=== PATIENT | male | born 1955 | race Caucasian/White ===

== ENCOUNTER → 2016-11-08 | Outpatient (CLI) | payer MEDICARE, OTHER ==
[2016-11-08 11:06] LABS: HEMOGLOBIN 12.8 g/dL (13.5-17.0); HGB HCT DIFFERENCE 1.4; MEAN CORPUSCULAR HEMOGLOBIN 29.9 pg (27.0-33.4); MEAN CORPUSCULAR HGB CONC 34.7 g/dL (32.0-36.0); MEAN CORPUSCULAR VOLUME 86 fl (80-97); RED BLOOD COUNT 4.29 10^6/uL (4.35-5.55); RED CELL DISTRIBUTION WIDTH 15.7 % (11.5-14.0); WHITE BLOOD COUNT 5.6 10^3/uL (4.0-10.5)
[2016-11-08 12:01] LABS: ALANINE AMINOTRANSFERASE 21 U/L (21-72); ALBUMIN 4.3 g/dL (3.5-5.0); ALKALINE PHOSPHATASE 102 U/L (38-126); AMYLASE 49 U/L (30-110); ASPARTATE AMINO TRANSFERASE 20 U/L (17-59); BILIRUBIN,DIRECT 0.4 mg/dL (0.0-0.4); BILIRUBIN,TOTAL 0.8 mg/dL (0.2-1.3); LIPASE 58.9 U/L (23-300); TOTAL PROTEIN 7.7 g/dL (6.3-8.2)
[2016-11-08 12:02] LABS: ALANINE AMINOTRANSFERASE 23 U/L (21-72); ALBUMIN 4.3 g/dL (3.5-5.0); ALKALINE PHOSPHATASE 101 U/L (38-126); ANION GAP 14 (5-19); ASPARTATE AMINO TRANSFERASE 19 U/L (17-59); BLOOD UREA NITROGEN 8 mg/dL (7-20); CALCIUM 9.4 mg/dL (8.4-10.2); CARBON DIOXIDE 31 mmol/L (22-30); CHLORIDE 101 mmol/L (98-107); CREATININE RESULT 0.85 mg/dL (0.52-1.25); GLUCOSE 98 mg/dL (75-110); POTASSIUM 4.3 mmol/L (3.6-5.0); TOTAL PROTEIN 7.7 g/dL (6.3-8.2)
[2016-11-08 12:34] LABS: BILIRUBIN,TOTAL 0.8 mg/dL (0.2-1.3)
[2016-11-08 12:44] LABS: BILIRUBIN,DIRECT 0.5 mg/dL (0.0-0.4)
--- NOTE | 2016-11-08 19:02 | EKG REPORT ---
SEVERITY:- OTHERWISE NORMAL ECG - SINUS RHYTHM BORDERLINE LEFT AXIS DEVIATION : Confirmed by: Matt Frye MD 08-Nov-2016 19:01:17
== END ==
LOC: OD 09:42
PROVIDERS: ATTEND Physician Assistant Surgical
DX: R53.83 Other fatigue (principal); I50.9 Heart failure, unspecified; I25.10 Atherosclerotic heart disease of native coronary artery without angina pectoris; Z98.84 Bariatric surgery status; R10.13 Epigastric pain
CPT/HCPCS: 36415; 71020; 80053; 80076; 82150; 82607; 83690; 83880; 84443; 85027; 93005; 93010

== ENCOUNTER 2017-02-19 12:38 | Emergency (ER) | payer MEDICARE, OTHER ==
--- NOTE | 2017-02-19 13:15 | ER Document Report ---
ED Medical Screen (RME) - General Chief Complaint: Testicular Problem Stated Complaint: RECENDED TESTICLES Time Seen by Provider: 02/19/17 13:10 Notes: 61-year-old male patient on chronic pain management complains of one-week history of bilateral testicular discomfort and states the testicles feel retracted. He reports in the past this occurs and he can push on his abdomen make him come back down but it is not working now. I have greeted and performed a rapid initial assessment of this patient. A comprehensive ED assessment and evaluation of the patient, analysis of test results and completion of the medical decision making process will be conducted by additional ED providers. TRAVEL OUTSIDE OF THE [place] IN LAST 30 DAYS: No - Related Data Allergies/Adverse Reactions: Iodinated Contrast- Oral and IV Dye [IV Dye, Iodine Containing] Allergy (Severe , Verified 02/19/17 12:49) Anaphylaxis Past Medical History - Past Medical History Cardiac Medical History: Reports: Hx Congestive Heart Failure, Hx Coronary Artery Disease, Hx Heart Attack Denies: Hx Atrial Fibrillation, Hx Hypercholesterolemia, Hx Hypertension, Hx Peripheral Vascular Disease, Hx Pulmonary Embolism, Hx Heart Murmur Pulmonary Medical History: Reports: Hx Pneumonia Denies: Hx Asthma, Hx Bronchitis, Hx COPD, Hx Respiratory Failure, Hx Sleep Apnea, Hx Tuberculosis Neurological Medical History: Denies: Hx Cerebrovascular Accident, Hx Seizures Endocrine Medical History: Denies: Hx Graves' Disease, Hx Hyperthyroidism, Hx Hypothyroidism Renal/ Medical History: Reports: Hx Kidney Stones. Denies: Hx Benign Prostatic Hyperplasia, Hx End Stage Renal Disease, Hx Peritoneal Dialysis Malignancy Medical History: Denies Hx Leukemia, Denies Hx Lung Cancer GI Medical History: Reports: Hx Gastroesophageal Reflux Disease, Hx Ulcer. Denies: Hx Crohn's Disease, Hx Hiatal Hernia, Hx Irritable Bowel, Hx Liver Failure Musculoskeltal Medical History: Denies Hx Arthritis, Denies Hx Fibromyalgia, Denies Hx Multiple Sclerosis, Denies Hx Muscular Dystrophy Psychiatric Medical History: Reports: Hx Post Traumatic Stress Disorder Denies: Hx Bipolar Disorder, Hx Dementia, Hx Depression, Hx Schizophrenia Traumatic Medical History: Denies: Hx Fractures Infectious Medical History: Denies: Hx HIV Past Surgical History: Reports: Hx Abdominal Surgery - gastric bypass, Hx Appendectomy - 2002, Hx Cardiac Catheterization - stents x 2, Hx Cardiac Surgery - two stents, Hx Cholecystectomy - 2008, Hx Gastric Bypass Surgery - (x2 ) surgery to repair. Denies: Hx Bowel Surgery, Hx Colostomy, Hx Coronary Artery Bypass Graft, Hx Herniorrhaphy, Hx Pacemaker, Hx Tonsillectomy - Immunizations Hx Diphtheria, Pertussis, Tetanus Vaccination: Yes Physical Exam - Vital signs Vitals: Temp Pulse Resp BP Pulse Ox 98.2 F 66 16 123/70 97 02/19/17 12:47 02/19/17 12:47 02/19/17 12:47 02/19/17 12:47 02/19/17 12:47 Course - Vital Signs Vital signs: Temp Pulse Resp BP Pulse Ox 98.2 F 66 16 123/70 97 02/19/17 12:47 02/19/17 12:47 02/19/17 12:47 02/19/17 12:47 02/19/17 12:47
[2017-02-19 13:47] LABS: APPEARANCE,URINE CLEAR; BILIRUBIN,URINE NEGATIVE (NEGATIVE); GLUCOSE, URINE NEGATIVE (NEGATIVE); KETONES,URINE NEGATIVE (NEGATIVE); LEUKOCYTE ESTERASE,URINE NEGATIVE (NEGATIVE); NITRITE,URINE NEGATIVE (NEGATIVE); PROTEIN,URINE NEGATIVE (NEGATIVE); URINE SPECIFIC GRAVITY 1.003; UROBILINOGEN,URINE NEGATIVE mg/dL (<2.0)
--- NOTE | 2017-02-19 14:33 | RADIOLOGY REPORT (SQ) ---
EXAM DESCRIPTION: U/S SCROTUM W/DOPPLER COMPLETED DATE/TIME: 02/19/2017 2:09 pm REASON FOR STUDY: bilat testicle pain and retraction COMPARISON: None. TECHNIQUE: Static and realtime mercado scale imaging of the scrotum and testes. Selected color Doppler and spectral images recorded to document blood flow. LIMITATIONS: None. FINDINGS: RIGHT: TESTICLE: Heterogeneous echotexture. Normal blood flow. EPIDIDYMIS: Normal. HYDROCELE OR VARICOCELE: No. HERNIA OR EXTRA-TESTICULAR MASS: No. OTHER: No other significant finding. LEFT: TESTICLE: Heterogeneous echotexture. Normal blood flow. EPIDIDYMIS: Normal. HYDROCELE OR VARICOCELE: No. HERNIA OR EXTRA-TESTICULAR MASS: No. OTHER: No other significant finding. IMPRESSION: NO EVIDENCE OF TESTICULAR MASS OR TORSION. TECHNICAL DOCUMENTATION: JOB ID: [id number] [employer]- All Rights Reserved
[2017-02-19] MEDS ORDERED: MORPHINE SULFATE IR 30 MG TABLET PO ONE (14:46)
[2017-02-19] MEDS ORDERED: KETOROLAC TROMETHAMINE 60 MG/2 ML SDV IM ONE (14:46)
--- NOTE | 2017-02-19 14:56 | ER Document Report ---
ED General - General Chief Complaint: Testicular Problem Stated Complaint: RECENDED TESTICLES Time Seen by Provider: 02/19/17 13:10 Notes: 61-year-old male with history of chronic pancreatitis and chronic low back pain on multiple opiate medications presents with a chief complaint of "my testicles are retracted" which she says is been going on for 5 days. He states throughout the last few weeks they have been retracting "into my abdomen" but is usually able to "push them back down." He denies scrotal swelling, and empty scrotum or redness. He has no dysuria. He has bilateral groin pain above the scrotum. He has no history of scrotal trauma. This patient was seen at triage by another provider and a UA and ultrasound were ordered. These are both read completely normal before I approach the patient to see him. TRAVEL OUTSIDE OF THE [place] IN LAST 30 DAYS: No - Related Data Allergies/Adverse Reactions: Iodinated Contrast- Oral and IV Dye [IV Dye, Iodine Containing] Allergy (Severe , Verified 02/19/17 12:49) Anaphylaxis Past Medical History - Social History Smoking Status: Current Every Day Smoker Chew tobacco use (# tins/day): - 1ppd Frequency of alcohol use: None Drug Abuse: None Family History: Hypertension - Past Medical History Cardiac Medical History: Reports: Hx Congestive Heart Failure, Hx Coronary Artery Disease, Hx Heart Attack Denies: Hx Atrial Fibrillation, Hx Hypercholesterolemia, Hx Hypertension, Hx Peripheral Vascular Disease, Hx Pulmonary Embolism, Hx Heart Murmur Pulmonary Medical History: Reports: Hx Pneumonia Denies: Hx Asthma, Hx Bronchitis, Hx COPD, Hx Respiratory Failure, Hx Sleep Apnea, Hx Tuberculosis Neurological Medical History: Denies: Hx Cerebrovascular Accident, Hx Seizures Endocrine Medical History: Denies: Hx Graves' Disease, Hx Hyperthyroidism, Hx Hypothyroidism Renal/ Medical History: Reports: Hx Kidney Stones. Denies: Hx Benign Prostatic Hyperplasia, Hx End Stage Renal Disease, Hx Peritoneal Dialysis Malignancy Medical History: Denies Hx Leukemia, Denies Hx Lung Cancer GI Medical History: Reports: Hx Gastroesophageal Reflux Disease, Hx Ulcer. Denies: Hx Crohn's Disease, Hx Hiatal Hernia, Hx Irritable Bowel, Hx Liver Failure Musculoskeltal Medical History: Denies Hx Arthritis, Denies Hx Fibromyalgia, Denies Hx Multiple Sclerosis, Denies Hx Muscular Dystrophy Psychiatric Medical History: Reports: Hx Post Traumatic Stress Disorder Denies: Hx Bipolar Disorder, Hx Dementia, Hx Depression, Hx Schizophrenia Traumatic Medical History: Denies: Hx Fractures Infectious Medical History: Denies: Hx HIV Past Surgical History: Reports: Hx Abdominal Surgery - gastric bypass, Hx Appendectomy - 2003, Hx Cardiac Catheterization - stents x 2, Hx Cardiac Surgery - two stents, Hx Cholecystectomy - 2009, Hx Gastric Bypass Surgery - (x2 ) surgery to repair. Denies: Hx Bowel Surgery, Hx Colostomy, Hx Coronary Artery Bypass Graft, Hx Herniorrhaphy, Hx Pacemaker, Hx Tonsillectomy - Immunizations Hx Diphtheria, Pertussis, Tetanus Vaccination: Yes Hx Pneumococcal Vaccination: 12/13/11 Review of Systems - Review of Systems Notes: Insert my review REVIEW OF SYSTEMS GEN: Denies fever, chills, weight loss ENT: Denies sore throat, nasal discharge, ear pain EYES: Denies blurry vision, eye pain, discharge CV: Denies chest pain, palpitations, edema RESP: Denies cough, shortness of breath, wheezing GI: Denies abdominal pain, nausea, vomiting, diarrhea MSK: Denies joint pain/swelling, edema, SKIN: Denies rash, skin lesions LYMPH: Denies swollen glands/lymph nodes NEURO: Denies headache, focal weakness or numbness, dizziness PSYCH: Denies depression, suicidal or homicidal ideation PHYSICAL EXAMINATION General: No acute distress, well-nourished Head: Atraumatic, normocephalic ENT: Mouth normal, oropharynx moist, no exudates or tonsillar enlargement Eyes: Conjunctiva normal, pupils equal, lids normal Neck: No JVD, supple, no guarding CVS: Normal rate, regular rhythm, no murmurs Resp: No resp distress, equal and normal breath sounds bilaterally GI: Nondistended, soft, no tenderness to palpation, no rebound or guarding Genitourinary: Normal male external genitalia. Normal scrotum bilaterally with normal testicles with normal lie with normal chemistry reflex. Mild inguinal tenderness. Patient stood up, no hernias appreciated bilaterally. Ext: No deformities, no edema, normal range of motion in upper and lower ext Back: No CVA or midline TTP Skin: No rash, warm Lymphatic: No lymphadeopathy noted Neuro: Awake, alert. Face symmetric. GCS 15. Physical Exam - Vital signs Vitals: Temp Pulse Resp BP Pulse Ox 98.2 F 66 16 123/70 97 02/19/17 12:47 02/19/17 12:47 02/19/17 12:47 02/19/17 12:47 02/19/17 12:47 Course - Re-evaluation Re-evalutation: 02/19/17 15:35 61-year-old male presents with complaints of his testicles retracting. He has bilateral testicle pain as well. His physical exam is consistent with normal testicles and scrotum including normal lie normal hemostatic reflex and no signs of infection. Patient has chronic pain. I do not appreciate hernias either. He states that he "may be having a little bit of pancreatitis". I suspect that he does not have any emergency medical condition of either the or GI system but I will get labs to confirm this. His ultrasound of the testicles and urinalysis are both normal. 02/19/17 18:58 Reassessed at 6:[address] scan is normal for acute pathology and labs except for a mildly elevated white count also normal. The patient is now in no apparent discomfort and is fine with being discharged to follow-up with urology. I have no concern for intermittent torsion detorsion given the time course of his pain bilateral nature and good blood flow. I have discussed with the patient there likely diagnosis, aftercare plan, follow -up plans and my usual and customary return precautions. They verbalized understanding of this. - Vital Signs Vital signs: Temp Pulse Resp BP Pulse Ox 98.2 F 66 16 123/70 97 02/19/17 12:47 02/19/17 12:47 02/19/17 12:47 02/19/17 12:47 02/19/17 12:47 - Laboratory Result Diagrams: 02/19/17 15:33 02/19/17 15:33 Laboratory results interpreted by me: 02/19/17 15:33 WBC 15.1 H RDW 14.7 H Seg Neutrophils % 82.9 H Lymphocytes % 11.3 L Absolute Neutrophils 12.5 H - Diagnostic Test Radiology reviewed: Image reviewed, Reports reviewed Discharge - Discharge Clinical Impression: Testicle pain Condition: Good Disposition: HOME, SELF-CARE Additional Instructions: He was evaluated in the ER extensively for testicle "retraction" which we did not find. Her testicles are normal and your abdominal CT is normal including that you do not have pancreatitis. Please follow-up with your regular doctor and I will refer you to a urologist in case you have further testicle pain. Referrals: TOÑO RICE MD [Primary Care Provider] - Follow up as needed FARHEEN KAYE MD [[facility]] - Follow up as needed
[2017-02-19 15:54] LABS: ABSOLUTE BASOPHILS # (AUTO) 0.1 10^3/uL (0.0-0.2); ABSOLUTE EOSINOPHILS # (AUTO) 0.1 10^3/uL (0.0-0.6); ABSOLUTE LYMPHOCYTES (AUTO) 1.7 10^3/uL (0.5-4.7); ABSOLUTE MONOCYTES (AUTO) 0.6 10^3/uL (0.1-1.4); ABSOLUTE NEUT (AUTO) 12.5 10^3/uL (1.7-8.2); BASOPHILS % (AUTO) 0.8 % (0-2); EOSINOPHILS % (AUTO) 0.9 % (0-6); HEMATOCRIT 41.7 % (37.9-51.0); HEMOGLOBIN 14.1 g/dL (13.5-17.0); HGB HCT DIFFERENCE 0.6; LYMPHOCYTES % (AUTO) 11.3 % (13-45); MEAN CORPUSCULAR HEMOGLOBIN 29.6 pg (27.0-33.4); MEAN CORPUSCULAR HGB CONC 33.7 g/dL (32.0-36.0); MEAN CORPUSCULAR VOLUME 88 fl (80-97); MONOCYTES % (AUTO) 4.1 % (3-13); RED BLOOD COUNT 4.75 10^6/uL (4.35-5.55); RED CELL DISTRIBUTION WIDTH 14.7 % (11.5-14.0); SEGMENTED NEUTROPHILS % (AUTO) 82.9 % (42-78); WHITE BLOOD COUNT 15.1 10^3/uL (4.0-10.5)
[2017-02-19 16:17] LABS: ANION GAP 12 (5-19); BLOOD UREA NITROGEN 9 mg/dL (7-20); CALCIUM 9.2 mg/dL (8.4-10.2); CARBON DIOXIDE 29 mmol/L (22-30); CHLORIDE 101 mmol/L (98-107); CREATININE RESULT 0.98 mg/dL (0.52-1.25); GLUCOSE 99 mg/dL (75-110); POTASSIUM 3.9 mmol/L (3.6-5.0); SODIUM 141.8 mmol/L (137-145)
--- NOTE | 2017-02-19 18:21 | RADIOLOGY REPORT (SQ) ---
EXAM DESCRIPTION: CT ABD/PELVIS WITH IV ONLY COMPLETED DATE/TIME: 02/19/2017 5:58 pm REASON FOR STUDY: groin pain elev WBC COMPARISON: None. TECHNIQUE: CT scan of the abdomen and pelvis performed using helical scanning technique with dynamic intravenous contrast injection. No oral contrast. Images reviewed with lung, soft tissue, and bone windows. Reconstructed coronal and sagittal MPR images reviewed. Delayed images for evaluation of the urinary system also acquired. All images stored on PACS. All CT scanners at this facility use dose modulation, iterative reconstruction, and/or weight based d osing when appropriate to reduce radiation dose to as low as reasonably achievable (ALARA). [facility]: Dose Right [facility]: CareDose [facility]: Dose Right [facility]: Teradose 4D [facility]: [email or web address] CONTRAST TYPE AND DOSE: contrast/concentration: Isovue 370.00 mg/ml; Total Contrast Delivered: 97.0 ml; Total Saline Delivered: 50.0 ml RENAL FUNCTION: Creatinine 0.98 RADIATION DOSE: Up-to-date CT equipment and radiation dose reduction techniques were employed. CTDIv ol: 9.4 - 13.3 mGy. DLP: 1339 mGy-cm.. LIMITATIONS: None. FINDINGS: LOWER CHEST: No significant findings. No nodules or infiltrates. LIVER: Normal size. No masses. No dilated ducts. SPLEEN: Normal size. No focal lesions. PANCREAS: No masses. No significant calcifications. No adjacent inflammation or peripancreatic fluid collections. Pancreatic duct not dilated. GALLBLADDER: Status post cholecystectomy ADRENAL GLANDS: No significant masses or asymmetry. RIGHT KIDNEY AND URETER: No solid masses. No significant calcifications. No hydronephrosis or hyd roureter. LEFT KIDNEY AND URETER: No solid masses. No significant calcifications. No hydronephrosis or hydr oureter. AORTA AND VESSELS: No aneurysm. No dissection. There is mild ectasia of the abdominal aorta and agustina c vessels with vascular calcifications. Renal arteries, SMA, celiac without stenosis. RETROPERITONEUM: No retroperitoneal adenopathy, hemorrhage or masses. BOWEL AND PERITONEAL CAVITY: No masses or inflammatory changes. No free fluid or peritoneal masses. Postsurgical changes are identified in the left upper quadrant related to a gastric bypass procedure. APPENDIX: Status post appendectomy PELVIS: No mass. No free fluid. Normal bladder. ABDOMINAL WALL: No masses. No hernias. BONES: Thoracolumbar scoliosis is identified with associated degenerative changes. OTHER: Prominent bilateral inguinal lymph nodes are identified which are slightly more pronounced on the left as compared to the right IMPRESSION: NO SIGNIFICANT OR ACUTE FINDING IN THE ABDOMEN OR PELVIS ON CT SCAN WITH IV CONTRAST. O ther findings as noted above TECHNICAL DOCUMENTATION: JOB ID: [id number] Quality ID # [id number]: Final reports with documentation of one or more dose reduction techniques (e.g., Au tomated exposure control, adjustment of the mA and/or kV according to patient size, use of iterative reconstruction technique) 2010 [employer]- All Rights Reserved
[2017-02-19 19:30] VITALS: BP 113/67
== END 2017-02-19 19:30 | disposition home or self-care (01) ==
LOC: ER 12:38
DX: N50.812 Left testicular pain (principal); N50.811 Right testicular pain; M54.5 Low back pain; G89.29 Other chronic pain; R10.30 Lower abdominal pain, unspecified; F17.210 Nicotine dependence, cigarettes, uncomplicated
CPT/HCPCS: 99284; 96372; 36415; 83690; 85025; 80048; 81001; 76870; 93976; 74177; J1885; A9270

== ENCOUNTER 2017-05-03 23:48 | Emergency (ER) | payer MEDICARE, OTHER ==
[2017-05-03] MEDS ORDERED: SILVER SULFADIAZINE 1% CREAM 400 GM TP PRN (23:49)
[2017-05-03] MEDS ORDERED: HYDROCODONE/ACETAMINOPHEN 5-325 MG TABLET PO ONE (23:49)
--- NOTE | 2017-05-03 23:51 | ER Document Report ---
ED General - General Stated Complaint: BURN ON HAND Time Seen by Provider: 05/03/17 23:49 Mode of Arrival: Medic Information source: Patient, Emergency Med Personnel Notes: 61-year-old male presents with complaints of taylor to bilateral hands from [place] steak dinner tonight. Patient notes it hurts a little but he was convinced to come in by EMS. Patient denies any large blistering notes a small blister on the hand. Denies any other concerns TRAVEL OUTSIDE OF THE [place] IN LAST 30 DAYS: No - HPI Onset: Just prior to arrival Onset/Duration: Sudden Quality of pain: Burning Severity: Mild Pain Level: 1 Associated symptoms: Other Exacerbated by: Denies Relieved by: Denies Similar symptoms previously: No Recently seen / treated by doctor: No - Related Data Allergies/Adverse Reactions: Iodinated Contrast- Oral and IV Dye [IV Dye, Iodine Containing] Allergy (Severe , Verified 02/19/17 12:49) Anaphylaxis Past Medical History - Social History Smoking Status: Current Every Day Smoker Cigarette use (# per day): Yes Chew tobacco use (# tins/day): No Smoking Education Provided: No Family History: Hypertension - Past Medical History Cardiac Medical History: Reports: Hx Congestive Heart Failure, Hx Coronary Artery Disease, Hx Heart Attack Denies: Hx Atrial Fibrillation, Hx Hypercholesterolemia, Hx Hypertension, Hx Peripheral Vascular Disease, Hx Pulmonary Embolism, Hx Heart Murmur Pulmonary Medical History: Reports: Hx Pneumonia Denies: Hx Asthma, Hx Bronchitis, Hx COPD, Hx Respiratory Failure, Hx Sleep Apnea, Hx Tuberculosis Neurological Medical History: Denies: Hx Cerebrovascular Accident, Hx Seizures Endocrine Medical History: Denies: Hx Graves' Disease, Hx Hyperthyroidism, Hx Hypothyroidism Renal/ Medical History: Reports: Hx Kidney Stones. Denies: Hx Benign Prostatic Hyperplasia, Hx End Stage Renal Disease, Hx Peritoneal Dialysis Malignancy Medical History: Denies Hx Leukemia, Denies Hx Lung Cancer GI Medical History: Reports: Hx Gastroesophageal Reflux Disease, Hx Ulcer. Denies: Hx Crohn's Disease, Hx Hiatal Hernia, Hx Irritable Bowel, Hx Liver Failure, Hx Pancreatitis Musculoskeltal Medical History: Denies Hx Arthritis, Denies Hx Fibromyalgia, Denies Hx Multiple Sclerosis, Denies Hx Muscular Dystrophy Psychiatric Medical History: Reports: Hx Post Traumatic Stress Disorder Denies: Hx Bipolar Disorder, Hx Dementia, Hx Depression, Hx Schizophrenia Traumatic Medical History: Denies: Hx Fractures Infectious Medical History: Denies: Hx HIV Past Surgical History: Reports: Hx Abdominal Surgery - gastric bypass, Hx Appendectomy - 2003, Hx Cardiac Catheterization - stents x 2, Hx Cardiac Surgery - two stents, Hx Cholecystectomy - 2009, Hx Gastric Bypass Surgery - (x2 ) surgery to repair. Denies: Hx Bowel Surgery, Hx Colostomy, Hx Coronary Artery Bypass Graft, Hx Herniorrhaphy, Hx Pacemaker, Hx Tonsillectomy - Immunizations Hx Diphtheria, Pertussis, Tetanus Vaccination: Yes Hx Pneumococcal Vaccination: 12/13/11 Review of Systems - Review of Systems Notes: REVIEW OF SYSTEMS: CONSTITUTIONAL : Denies fever, chills, or sweats. Denies recent illness. EENT: Denies eye, ear, throat, or mouth pain or symptoms. Denies nasal or sinus congestion or discharge. Denies throat, tongue, or mouth swelling or difficulty swallowing. CARDIOVASCULAR: Denies chest pain. Denies palpitations or racing or irregular heart beat. Denies ankle edema. RESPIRATORY: Denies cough, cold, or chest congestion. Denies shortness of breath, difficulty breathing, or wheezing. GASTROINTESTINAL: Denies abdominal pain or distention. Denies nausea, vomiting , or diarrhea. Denies blood in vomitus, stools, or per rectum. Denies black, tarry stools. Denies constipation. GENITOURINARY: Denies difficulty urinating, painful urination, burning, frequency, blood in urine, or discharge. MUSCULOSKELETAL: Denies back or neck pain or stiffness. Denies joint pain or swelling. SKIN: Admits to taylor to hands HEMATOLOGIC : Denies easy bruising or bleeding. LYMPHATIC: Denies swollen, enlarged glands. NEUROLOGICAL: Denies confusion or altered mental status. Denies passing out or loss of consciousness. Denies dizziness or lightheadedness. Denies headache. Denies weakness or paralysis or loss of use of either side. Denies problems with gait or speech. Denies sensory loss, numbness, or tingling. Denies seizures. PSYCHIATRIC: Denies anxiety or stress. Denies depression, suicidal ideation, or homicidal ideation. ALL OTHER SYSTEMS REVIEWED AND NEGATIVE. Dictation was performed using [employer] voice recognition software PHYSICAL EXAMINATION: GENERAL: Well-appearing, well-nourished and in no acute distress. HEAD: Atraumatic, normocephalic. EYES: Pupils equal round and reactive to light, extraocular movements intact, sclera anicteric, conjunctiva are normal. ENT: Nares patent, oropharynx clear without exudates. Moist mucous membranes. NECK: Normal range of motion, supple without lymphadenopathy LUNGS: Breath sounds clear to auscultation bilaterally and equal. No wheezes rales or rhonchi. HEART: Regular rate and rhythm without murmurs ABDOMEN: Soft, nontender, nondistended abdomen. No guarding, no rebound. No masses appreciated. Musculoskeletal: Normal range of motion, no pitting or edema. No cyanosis. NEUROLOGICAL: Cranial nerves grossly intact. Normal speech, normal gait. Normal sensory, motor exams PSYCH: Normal mood, normal affect. SKIN: First-degree taylor on bilateral hands, very mild erythema noted, there is one small blister noted on the right hand fourth digit none of these taylor are circumferential there is no sloughing of the skin Physical Exam - Vital signs Vitals: Temp Pulse Resp BP Pulse Ox 97.5 F 77 16 134/86 H 94 05/03/17 23:55 05/03/17 23:55 05/03/17 23:55 05/03/17 23:55 05/03/17 23:55 Course - Re-evaluation Re-evalutation: 05/04/17 00:21 Patient was immediately evaluated upon arrival to the emergency department, his taylor are extremely superficial and have absolutely no circumferential taylor. They will appeared to be first-degree taylor with a small blister that is starting to form on the right hand. Otherwise patient looks well is in no distress given pain control Silvadene and very close follow-up tetanus is up-to- date After performing a Medical Screening Examination, I estimate there is LOW risk for OPEN FRACTURE, COMPARTMENT SYNDROME, TENDON RUPTURE, ACUTE NEUROVASCULAR INJURY, or RETAINED FOREIGN BODY, thus I consider the discharge disposition reasonable. Also, there is no evidence or peritonitis, sepsis, or toxicity. I have reevaluated this patient multiple times and no significant life threatening changes are noted. The patient and I have discussed the diagnosis and risks, and we agree with discharging home with close follow-up with the understanding that symptoms and presentations can change. We also discussed returning to the Emergency Department immediately if new or worsening symptoms occur. We have discussed the symptoms which are most concerning (e.g., changing or worsening pain, fever, numbness, weakness, cool or painful digits) that necessitate immediate return. - Vital Signs Vital signs: Temp Pulse Resp BP Pulse Ox 97.5 F 77 16 134/86 H 94 05/03/17 23:55 05/03/17 23:55 05/03/17 23:55 05/03/17 23:55 05/03/17 23:55 Discharge - Discharge Clinical Impression: First degree burn Condition: Stable Disposition: HOME, SELF-CARE Instructions: Pain Medication Injection ([facility]), Silvadene Cream ([facility]) Additional Instructions: Follow up with your physician tomorrow for further care or return to the ED IMMEDIATELY if symptoms worsen or new concerns occur. If you cannot afford to follow up with your primary care physician a list of low cost clinics have been provided at the end of your discharge papers as well. Prescriptions: Hydrocodone/Acetaminophen [[place] 5-325 Tablet] 1 each PO Q6 #10 tablet
[2017-05-04 00:10] VITALS: BP 134/86
== END 2017-05-04 00:22 | disposition home or self-care (01) ==
LOC: ER 23:48
DX: T23.221A Burn of second degree of single right finger (nail) except thumb, initial encounter (principal); T23.102A Burn of first degree of left hand, unspecified site, initial encounter; X10.2XXA Contact with fats and cooking oils, initial encounter; Y93.G3 Activity, cooking and baking; I25.10 Atherosclerotic heart disease of native coronary artery without angina pectoris; I10 Essential (primary) hypertension; F17.210 Nicotine dependence, cigarettes, uncomplicated; Z87.892 Personal history of anaphylaxis; Z91.041 Radiographic dye allergy status; Z98.84 Bariatric surgery status
CPT/HCPCS: 99283; J3490

== ENCOUNTER 2017-07-28 14:54 | Emergency (ER) | payer MEDICARE, OTHER ==
[2017-07-28] MEDS ORDERED: DIPH/PERTUSS(ACELL)/TETANUS VAC/PF 0.5 ML SYR (>=10YO) IM ONE (17:03)
--- NOTE | 2017-07-28 17:04 | ER Document Report ---
ED Medical Screen (RME) - General Chief Complaint: Laceration Stated Complaint: LEFT HAND INJURY Time Seen by Provider: 07/28/17 17:03 Mode of Arrival: Ambulatory Information source: Patient Notes: pt reports cut finger with table saw 3-4 hours ago, needs tetanus. took tylenol before arrival TRAVEL OUTSIDE OF THE [place] IN LAST 30 DAYS: No - Related Data Allergies/Adverse Reactions: Iodinated Contrast- Oral and IV Dye [IV Dye, Iodine Containing] Allergy (Severe , Verified 02/19/17 12:49) Anaphylaxis Past Medical History - Past Medical History Cardiac Medical History: Reports: Hx Congestive Heart Failure, Hx Coronary Artery Disease, Hx Heart Attack Denies: Hx Atrial Fibrillation, Hx Hypercholesterolemia, Hx Hypertension, Hx Peripheral Vascular Disease, Hx Pulmonary Embolism, Hx Heart Murmur Pulmonary Medical History: Reports: Hx Pneumonia Denies: Hx Asthma, Hx Bronchitis, Hx COPD, Hx Respiratory Failure, Hx Sleep Apnea, Hx Tuberculosis Neurological Medical History: Denies: Hx Cerebrovascular Accident, Hx Seizures Endocrine Medical History: Denies: Hx Graves' Disease, Hx Hyperthyroidism, Hx Hypothyroidism Renal/ Medical History: Reports: Hx Kidney Stones. Denies: Hx Benign Prostatic Hyperplasia, Hx End Stage Renal Disease, Hx Peritoneal Dialysis Malignancy Medical History: Denies Hx Leukemia, Denies Hx Lung Cancer GI Medical History: Reports: Hx Gastroesophageal Reflux Disease, Hx Ulcer. Denies: Hx Crohn's Disease, Hx Hiatal Hernia, Hx Irritable Bowel, Hx Liver Failure, Hx Pancreatitis Musculoskeltal Medical History: Denies Hx Arthritis, Denies Hx Fibromyalgia, Denies Hx Multiple Sclerosis, Denies Hx Muscular Dystrophy Psychiatric Medical History: Reports: Hx Post Traumatic Stress Disorder Denies: Hx Bipolar Disorder, Hx Dementia, Hx Depression, Hx Schizophrenia Traumatic Medical History: Denies: Hx Fractures Infectious Medical History: Denies: Hx HIV Past Surgical History: Reports: Hx Abdominal Surgery - gastric bypass, Hx Appendectomy - 2002, Hx Cardiac Catheterization - stents x 2, Hx Cardiac Surgery - two stents, Hx Cholecystectomy - 2008, Hx Gastric Bypass Surgery - (x2 ) surgery to repair. Denies: Hx Bowel Surgery, Hx Colostomy, Hx Coronary Artery Bypass Graft, Hx Herniorrhaphy, Hx Pacemaker, Hx Tonsillectomy - Immunizations Hx Diphtheria, Pertussis, Tetanus Vaccination: Yes Physical Exam - Vital signs Vitals: Temp Pulse Resp BP Pulse Ox 98.3 F 105 H 16 111/64 98 07/28/17 15:27 07/28/17 15:27 07/28/17 15:27 07/28/17 15:27 07/28/17 15:27 Course - Vital Signs Vital signs: Temp Pulse Resp BP Pulse Ox 98.3 F 105 H 16 111/64 98 07/28/17 15:27 07/28/17 15:27 07/28/17 15:27 07/28/17 15:27 07/28/17 15:27
[2017-07-28] MEDS ORDERED: LIDOCAINE 1% INJ (10 MG/ML) 10 ML MDV INJ ONE (17:33)
[2017-07-28] MEDS ORDERED: BUPIVACAINE HCL 0.5 % INJ/PF 30 ML SDV INJ ONE (17:33)
--- NOTE | 2017-07-28 17:37 | RADIOLOGY REPORT (SQ) ---
EXAM DESCRIPTION: FINGER LEFT COMPLETED DATE/TIME: 07/28/2017 5:18 pm REASON FOR STUDY: laceration with table saw COMPARISON: None. NUMBER OF VIEWS: Three views. TECHNIQUE: AP, lateral, and oblique images acquired of the left fourth finger. LIMITATIONS: None. FINDINGS: MINERALIZATION: Normal. BONES: A 4th digit distal phalanx tuft fracture is present. SOFT TISSUES: There appears to be soft tissue irregularity overlying the injury site. No retained ra diopaque foreign body. OTHER: No other significant finding. IMPRESSION: Apparent open 4th digit tuft fracture. COMMENT: SITE OF TRAUMA/COMPLAINT MARKED/STAMP COMPLETED: No TECHNICAL DOCUMENTATION: JOB ID: [id number] [employer])- All Rights Reserved
[2017-07-28] MEDS ORDERED: LIDOCAINE 1% INJ-PF (10 MG/ML) 30 ML SDV ONE (17:58)
[2017-07-28] MEDS ORDERED: CEPHALEXIN 500 MG CAPSULE PO ONE (18:48)
--- NOTE | 2017-07-28 19:20 | ER Document Report ---
ED Extremity Problem, Upper - General Chief Complaint: Laceration Stated Complaint: LEFT HAND INJURY Time Seen by Provider: 07/28/17 17:03 Mode of Arrival: Ambulatory Information source: Patient TRAVEL OUTSIDE OF THE [place] IN LAST 30 DAYS: No - HPI Patient complains to provider of: Injury, Left, Hand Onset: Just prior to arrival Recent injury: Yes Where: Home Quality of pain: Achy Severity of pain: Moderate Context: Other - table saw Notes: Patient arrives with complaints of laceration to the tip of his left ring finger. He was running a table saw when he accidentally hit his left fingertip into the blade. He is unsure of his last tetanus shot. He denies any numbness , tingling, weakness. Bleeding is controlled. He denies any nausea, vomiting, diarrhea. He denies any other injuries. Pain is worse with movement, better with rest. He denies any other complaints or injuries at this time. - Related Data Allergies/Adverse Reactions: Iodinated Contrast- Oral and IV Dye [IV Dye, Iodine Containing] Allergy (Severe , Verified 02/19/17 12:49) Anaphylaxis Past Medical History - General Information source: Patient - Social History Smoking Status: Current Every Day Smoker Chew tobacco use (# tins/day): No Frequency of alcohol use: None Drug Abuse: None Family History: Hypertension Patient has suicidal ideation: No Patient has homicidal ideation: No - Past Medical History Cardiac Medical History: Reports: Hx Congestive Heart Failure, Hx Coronary Artery Disease, Hx Heart Attack Denies: Hx Atrial Fibrillation, Hx Hypercholesterolemia, Hx Hypertension, Hx Peripheral Vascular Disease, Hx Pulmonary Embolism, Hx Heart Murmur Pulmonary Medical History: Reports: Hx Pneumonia Denies: Hx Asthma, Hx Bronchitis, Hx COPD, Hx Respiratory Failure, Hx Sleep Apnea, Hx Tuberculosis Neurological Medical History: Denies: Hx Cerebrovascular Accident, Hx Seizures Endocrine Medical History: Denies: Hx Graves' Disease, Hx Hyperthyroidism, Hx Hypothyroidism Renal/ Medical History: Reports: Hx Kidney Stones. Denies: Hx Benign Prostatic Hyperplasia, Hx End Stage Renal Disease, Hx Peritoneal Dialysis Malignancy Medical History: Denies Hx Leukemia, Denies Hx Lung Cancer GI Medical History: Reports: Hx Gastroesophageal Reflux Disease, Hx Ulcer. Denies: Hx Crohn's Disease, Hx Hiatal Hernia, Hx Irritable Bowel, Hx Liver Failure, Hx Pancreatitis Musculoskeltal Medical History: Denies Hx Arthritis, Denies Hx Fibromyalgia, Denies Hx Multiple Sclerosis, Denies Hx Muscular Dystrophy Psychiatric Medical History: Reports: Hx Post Traumatic Stress Disorder Denies: Hx Bipolar Disorder, Hx Dementia, Hx Depression, Hx Schizophrenia Traumatic Medical History: Denies: Hx Fractures Infectious Medical History: Denies: Hx HIV Past Surgical History: Reports: Hx Abdominal Surgery - gastric bypass, Hx Appendectomy - 2002, Hx Cardiac Catheterization - stents x 2, Hx Cardiac Surgery - two stents, Hx Cholecystectomy - 2008, Hx Gastric Bypass Surgery - (x2 ) surgery to repair. Denies: Hx Bowel Surgery, Hx Colostomy, Hx Coronary Artery Bypass Graft, Hx Herniorrhaphy, Hx Pacemaker, Hx Tonsillectomy - Immunizations Hx Diphtheria, Pertussis, Tetanus Vaccination: Yes Hx Pneumococcal Vaccination: 12/13/11 Review of Systems - Review of Systems -: Yes All other systems reviewed and negative Physical Exam - Vital signs Vitals: Temp Pulse Resp BP Pulse Ox 98.3 F 105 H 16 111/64 98 07/28/17 15:27 07/28/17 15:27 07/28/17 15:27 07/28/17 15:27 07/28/17 15:27 - Notes Notes: GENERAL: alert, cooperative, nontoxic, no distress. HEAD: normocephalic, atraumatic EYES: conjunctiva pink without discharge, no external redness or swelling. EARS: no external swelling, no external redness NOSE: atraumatic, no external swelling MOUTH/THROAT: mucous membranes moist and pink, posterior pharynx without erythema, swelling, exudate. No trismus or drooling. NECK: soft, supple, full range of motion, no meningismus. CHEST: no distress, lungs clear and equal throughout. No wheezing, rales, rhonchi. CARDIAC: regular rate and rhythm, no murmur, normal capillary refill, normal pulses. No peripheral edema noted. BACK: full range of motion, no CVA tenderness. EXTREMITIES: full range of motion of all extremities. No redness, no swelling. 2 cm laceration with maceration and irregular borders to the tip of the left ring finger. Laceration goes along the tip of the nail, but the nail itself is intact. Bleeding is controlled. Full flexion and extension of the fingertip. Normal sensation distally. Normal cap refill sleep. No foreign body identified. NEURO: alert and oriented x 3, no focal deficits, full range of motion of all extremities. PYSCH: appropriate mood, affect. Patient is cooperative. SKIN: pink, warm, dry, no rash. Course - Re-evaluation Re-evalutation: 07/28/17 19:17 Patient is nontoxic appearing with stable vitals. The patient accidentally lacerated the tip of his left ring finger with a table saw. No foreign bodies. Full range of motion. X-rays show tuft fracture. Tetanus was updated. The patient was given Keflex in the emergency department. The laceration was closed. Patient had a sterile dressing and a splint applied. Patient will be discharged home with a prescription for Keflex and instructions to follow-up with Orth O at the next available appointment. The patient already takes OxyContin and oxycodone, he can take this as needed for his pain. The patient's emergency department workup and current diagnosis were explained to the patient and or family. Follow-up instructions were provided. Medications if prescribed were discussed. Instructions for when to return to the emergency department including specific worrisome symptoms were discussed with the patient and/or family. - Vital Signs Vital signs: Temp Pulse Resp BP Pulse Ox 98.3 F 105 H 16 111/64 98 07/28/17 15:27 07/28/17 15:27 07/28/17 15:27 07/28/17 15:27 07/28/17 15:27 Procedures - Laceration/Wound Repair Left ring fingertip Wound length (cm): 2 Wound's Depth, Shape: Superficial, Irregular Laceration pre-procedure: Sterile PPE donned, Sterile drapes applied, Shur- Clens applied Anesthetic type: 0.5% Bupivacaine Wound explored: Clean, No foreign body removed Irrigated w/ Saline (mLs): 100 Wound Repaired With: Sutures Suture Size/Type: 5:0, Ethilon Number of Sutures: 7 Layer Closure?: No Post-procedure wound care: Sterile dressing applied, Splint applied Post-procedure NV exam normal: Yes Complications: No Discharge - Discharge Clinical Impression: Open fracture of phalanx of left ring finger Qualifiers: Encounter type: initial encounter Phalanx: distal Fracture alignment: nondisplaced Qualified Code(s): S62.665B - Nondisplaced fracture of distal phalanx of left ring finger, initial encounter for open fracture Condition: Stable Disposition: HOME, SELF-CARE Instructions: Laceration Care ([facility]), Prophylactic Antibiotic ([facility]), Tetanus Immunization Given ([facility]) Additional Instructions: Keep wound clean and dry. Follow-up with orthopedist at the next available appointment. Follow-up with your primary care doctor as scheduled on Sunday for a wound check. Follow-up sooner for increased pain, fever, redness, drainage, any further concerns. Referrals: TOÑO RICE MD [Primary Care Provider] - Follow up as needed JON AVALOS DO [ACTIVE STAFF] - Follow up as needed
[2017-07-28 19:42] VITALS: BP 138/79
== END 2017-07-28 19:33 | disposition home or self-care (01) ==
LOC: ER 14:54
PROC: 0HQGXZZ Repair Left Hand Skin, External Approach (ICD-10-PCS; principal; 2017-07-28)
DX: S62.665B Nondisplaced fracture of distal phalanx of left ring finger, initial encounter for open fracture (principal); W45.8XXA Other foreign body or object entering through skin, initial encounter; F17.200 Nicotine dependence, unspecified, uncomplicated
CPT/HCPCS: 99283; 90471; 73140; 90715; 12001; A9270; J3490

== ENCOUNTER 2017-11-04 10:23 | Inpatient (IN) | payer MEDICARE, OTHER ==
[2017-11-04] MEDS ORDERED: ALBUTEROL SULFATE 0.083% NEB 2.5 MG/3 ML AMPUL NEB ONE (10:42)
[2017-11-04] MEDS ORDERED: METHYLPREDNISOLONE INJ 125 MG/2 ML SDV IV ONE (10:42)
--- NOTE | 2017-11-04 10:43 | ER Document Report ---
ED Medical Screen (RME) - General Chief Complaint: Shortness Of Breath Stated Complaint: BREATHING DIFFICULTY Time Seen by Provider: 11/04/17 10:41 Notes: Patient says he has been having difficulty breathing for the past 3-4 days. He has had a cough which is primarily dry. However, 4 days ago, he had some blood with his sputum and that lasted all day, but has resolved now. Has had no other symptoms. Never told he has COPD. Smokes a half pack of cigarettes a day. No history of congestive heart failure. Has had a heart attack and stent placement. Patient has scattered rales in both lung jon and a few scattered wheezes bilaterally. Is moving air well, however. Patient's O2 sat in triage was 79. TRAVEL OUTSIDE OF THE [place] IN LAST 30 DAYS: No - Related Data Allergies/Adverse Reactions: No Known Allergies Allergy (Verified 11/04/17 10:24) Past Medical History - Past Medical History Cardiac Medical History: Reports: Hx Congestive Heart Failure, Hx Coronary Artery Disease, Hx Heart Attack Denies: Hx Atrial Fibrillation, Hx Hypercholesterolemia, Hx Hypertension, Hx Peripheral Vascular Disease, Hx Pulmonary Embolism, Hx Heart Murmur Pulmonary Medical History: Reports: Hx Pneumonia Denies: Hx Asthma, Hx Bronchitis, Hx COPD, Hx Respiratory Failure, Hx Sleep Apnea, Hx Tuberculosis Neurological Medical History: Denies: Hx Cerebrovascular Accident, Hx Seizures Endocrine Medical History: Denies: Hx Graves' Disease, Hx Hyperthyroidism, Hx Hypothyroidism Renal/ Medical History: Reports: Hx Kidney Stones. Denies: Hx Benign Prostatic Hyperplasia, Hx End Stage Renal Disease, Hx Peritoneal Dialysis Malignancy Medical History: Denies Hx Leukemia, Denies Hx Lung Cancer GI Medical History: Reports: Hx Gastroesophageal Reflux Disease, Hx Ulcer. Denies: Hx Crohn's Disease, Hx Hiatal Hernia, Hx Irritable Bowel, Hx Liver Failure, Hx Pancreatitis Musculoskeltal Medical History: Denies Hx Arthritis, Denies Hx Fibromyalgia, Denies Hx Multiple Sclerosis, Denies Hx Muscular Dystrophy Psychiatric Medical History: Reports: Hx Post Traumatic Stress Disorder Denies: Hx Bipolar Disorder, Hx Dementia, Hx Depression, Hx Schizophrenia Traumatic Medical History: Denies: Hx Fractures Infectious Medical History: Denies: Hx HIV Past Surgical History: Reports: Hx Abdominal Surgery - gastric bypass, Hx Appendectomy - 2002, Hx Cardiac Catheterization - stents x 2, Hx Cardiac Surgery - two stents, Hx Cholecystectomy - 2009, Hx Gastric Bypass Surgery - (x2 ) surgery to repair. Denies: Hx Bowel Surgery, Hx Colostomy, Hx Coronary Artery Bypass Graft, Hx Herniorrhaphy, Hx Pacemaker, Hx Tonsillectomy - Immunizations Hx Diphtheria, Pertussis, Tetanus Vaccination: Yes Physical Exam - Vital signs Vitals: Pulse Ox 79 L 11/04/17 10:35 Course - Vital Signs Vital signs: Temp Pulse Resp BP Pulse Ox 98.7 F 56 L 16 109/58 L 95 11/04/17 18:44 11/04/17 20:35 11/04/17 20:35 11/04/17 18:44 11/04/17 20:35 - Laboratory Result Diagrams: 11/04/17 11:16 11/04/17 11:16 Laboratory results interpreted by me: 11/04/17 11/04/17 11:16 11:16 WBC 10.6 H RBC 4.12 L Hgb 12.0 L Hct 35.1 L RDW 15.2 H Seg Neutrophils % 80.0 H Lymphocytes % 11.9 L Absolute Neutrophils 8.5 H Sodium 133.5 L Potassium 3.2 L Chloride 93 L Glucose 112 H Calcium 8.2 L Doctor's Discharge - Discharge Clinical Impression: Cough, Weakness, Hypoxia Condition: Stable Disposition: ADMITTED INPATIENT
[2017-11-04 11:40] LABS: ABSOLUTE BASOPHILS # (AUTO) 0.1 10^3/uL (0.0-0.2); ABSOLUTE EOSINOPHILS # (AUTO) 0.1 10^3/uL (0.0-0.6); ABSOLUTE LYMPHOCYTES (AUTO) 1.3 10^3/uL (0.5-4.7); ABSOLUTE MONOCYTES (AUTO) 0.7 10^3/uL (0.1-1.4); ABSOLUTE NEUT (AUTO) 8.5 10^3/uL (1.7-8.2); BASOPHILS % (AUTO) 0.8 % (0-2); EOSINOPHILS % (AUTO) 1.1 % (0-6); HEMATOCRIT 35.1 % (37.9-51.0); LYMPHOCYTES % (AUTO) 11.9 % (13-45); MEAN CORPUSCULAR HEMOGLOBIN 29.1 pg (27.0-33.4); MEAN CORPUSCULAR HGB CONC 34.2 g/dL (32.0-36.0); MEAN CORPUSCULAR VOLUME 85 fl (80-97); MONOCYTES % (AUTO) 6.2 % (3-13); PLATELET COUNT 264 10^3/uL (150-450); RED BLOOD COUNT 4.12 10^6/uL (4.35-5.55); RED CELL DISTRIBUTION WIDTH 15.2 % (11.5-14.0); TOTAL CELLS COUNTED % (AUTO) 100 %; WHITE BLOOD COUNT 10.6 10^3/uL (4.0-10.5)
[2017-11-04 11:57] LABS: ALANINE AMINOTRANSFERASE 30 U/L (21-72); ALBUMIN 3.6 g/dL (3.5-5.0); ALKALINE PHOSPHATASE 121 U/L (38-126); ANION GAP 12 (5-19); ASPARTATE AMINO TRANSFERASE 34 U/L (17-59); BILIRUBIN,DIRECT 0.3 mg/dL (0.0-0.4); BILIRUBIN,TOTAL 0.9 mg/dL (0.2-1.3); BLOOD UREA NITROGEN 11 mg/dL (7-20); CALCIUM 8.2 mg/dL (8.4-10.2); CARBON DIOXIDE 29 mmol/L (22-30); CHLORIDE 93 mmol/L (98-107); GLUCOSE 112 mg/dL (75-110); POTASSIUM 3.2 mmol/L (3.6-5.0); SODIUM 133.5 mmol/L (137-145); TOTAL PROTEIN 6.7 g/dL (6.3-8.2)
[2017-11-04] MEDS ORDERED: AZITHROMYCIN INJ 500 MG VIAL IV ONE (12:07)
[2017-11-04] MEDS ORDERED: CEFTRIAXONE INJ 1000 MG VIAL IV ONE (12:07)
--- NOTE | 2017-11-04 12:22 | RADIOLOGY REPORT (SQ) ---
EXAM DESCRIPTION: CHEST 2 VIEWS COMPLETED DATE/TIME: 11/04/2017 12:10 pm REASON FOR STUDY: Cough, low O2 sat, smoker COMPARISON: 11/17/2014 EXAM PARAMETERS: NUMBER OF VIEWS: two views TECHNIQUE: Digital Frontal and Lateral radiographic views of the chest acquired. RADIATION DOSE: NA LIMITATIONS: none FINDINGS: LUNGS AND PLEURA: Chronic interstitial changes. No evidence of superimposed pneumonia. N o effusions. MEDIASTINUM AND HILAR STRUCTURES: No masses or contour abnormalities. HEART AND VASCULAR STRUCTURES: Stable cardiomegaly. BONES: No acute findings. HARDWARE: None in the chest. OTHER: No other significant finding. IMPRESSION: Cardiomegaly. Chronic interstitial changes. TECHNICAL DOCUMENTATION: JOB ID: [id number] [employer]- All Rights Reserved Reading location - IP/workstation name: [email or web address]
[2017-11-04] MEDS ORDERED: POTASSIUM CHLORIDE 10 MEQ TABLET.SA PO ONE (12:23)
[2017-11-04] MEDS ORDERED: ONDANSETRON 4 MG TAB.RAPDIS PO ONE (12:23)
[2017-11-04] MEDS ORDERED: IPRATROPIUM/ALBUTEROL 0.5-2.5 MG/3 ML AMPUL NEB ONE (12:50)
[2017-11-04] MEDS ORDERED: ASPIRIN 81 MG TABLET, CHEWABLE PO ONE (14:57)
--- NOTE | 2017-11-04 16:05 | ER Document Report ---
ED Respiratory Problem - General Chief Complaint: Shortness Of Breath Stated Complaint: BREATHING DIFFICULTY Time Seen by Provider: 11/04/17 10:41 Mode of Arrival: Ambulatory Information source: Patient Notes: Pt is a 62 year old male who smokes 1/2 pack of cigaretes per day who presents to the ER today for shortness of breath, cough and generally not feeling well for the past 4 days. Pt has a history of heart attack with stent placed, He denies any swelling anywhere, hx of copd/asthma or being on oxygen at home. Pt walked into the ER with a pulse ox of 79% on room air. He denies chest pain at all. He states he's had pneumonia before and "this feels like that." TRAVEL OUTSIDE OF THE [place] IN LAST 30 DAYS: No - Related Data Allergies/Adverse Reactions: No Known Allergies Allergy (Verified 11/04/17 10:24) Past Medical History - General Information source: Patient - Social History Smoking Status: Current Every Day Smoker Family History: Hypertension Patient has suicidal ideation: No Patient has homicidal ideation: No - Past Medical History Cardiac Medical History: Reports: Hx Congestive Heart Failure, Hx Coronary Artery Disease, Hx Heart Attack Denies: Hx Atrial Fibrillation, Hx Hypercholesterolemia, Hx Hypertension, Hx Peripheral Vascular Disease, Hx Pulmonary Embolism, Hx Heart Murmur Pulmonary Medical History: Reports: Hx Pneumonia Denies: Hx Asthma, Hx Bronchitis, Hx COPD, Hx Respiratory Failure, Hx Sleep Apnea, Hx Tuberculosis Neurological Medical History: Denies: Hx Cerebrovascular Accident, Hx Seizures Endocrine Medical History: Denies: Hx Graves' Disease, Hx Hyperthyroidism, Hx Hypothyroidism Renal/ Medical History: Reports: Hx Kidney Stones. Denies: Hx Benign Prostatic Hyperplasia, Hx End Stage Renal Disease, Hx Peritoneal Dialysis Malignancy Medical History: Denies Hx Leukemia, Denies Hx Lung Cancer GI Medical History: Reports: Hx Gastroesophageal Reflux Disease, Hx Ulcer. Denies: Hx Crohn's Disease, Hx Hiatal Hernia, Hx Irritable Bowel, Hx Liver Failure, Hx Pancreatitis Musculoskeltal Medical History: Denies Hx Arthritis, Denies Hx Fibromyalgia, Denies Hx Multiple Sclerosis, Denies Hx Muscular Dystrophy Psychiatric Medical History: Reports: Hx Post Traumatic Stress Disorder Denies: Hx Bipolar Disorder, Hx Dementia, Hx Depression, Hx Schizophrenia Traumatic Medical History: Denies: Hx Fractures Infectious Medical History: Denies: Hx HIV Past Surgical History: Reports: Hx Abdominal Surgery - gastric bypass, Hx Appendectomy - 2002, Hx Cardiac Catheterization - stents x 2, Hx Cardiac Surgery - two stents, Hx Cholecystectomy - 2009, Hx Gastric Bypass Surgery - (x2 ) surgery to repair. Denies: Hx Bowel Surgery, Hx Colostomy, Hx Coronary Artery Bypass Graft, Hx Herniorrhaphy, Hx Pacemaker, Hx Tonsillectomy - Immunizations Hx Diphtheria, Pertussis, Tetanus Vaccination: Yes Hx Pneumococcal Vaccination: 12/13/11 Review of Systems - Review of Systems Constitutional: See HPI EENT: No symptoms reported Cardiovascular: See HPI Respiratory: See HPI Gastrointestinal: No symptoms reported Genitourinary: No symptoms reported Male Genitourinary: No symptoms reported Musculoskeletal: No symptoms reported Skin: No symptoms reported Hematologic/Lymphatic: No symptoms reported Neurological/Psychological: No symptoms reported Physical Exam - Vital signs Vitals: Pulse Ox 79 L 11/04/17 10:35 - Notes Notes: PHYSICAL EXAMINATION: GENERAL: ill appearing, but in no acute distress. HEAD: Atraumatic, normocephalic. EYES: Pupils equal round and reactive to light, extraocular movements intact, sclera anicteric, conjunctiva are normal. ENT: ear canals without erythema or foreign body, TMs pearly yates with good bony landmarks, nares patent, oropharynx clear without exudates. Moist mucous membranes. airway patent NECK: Normal range of motion, supple without lymphadenopathy LUNGS: rales bilateral lower lung jon, rhonchi that clears with cough, no wheezing HEART: Regular rate and rhythm without murmurs ABDOMEN: Soft, no tenderness. No guarding, no rebound BACK: no vertebral tenderness, normal ROM GI/: no CVA tenderness EXTREMITIES: Normal range of motion, no pitting edema. No cyanosis. NEUROLOGICAL: Cranial nerves grossly intact. Normal sensory/motor exams. PSYCH: Normal mood, normal affect. SKIN: Warm, Dry, normal turgor, no rashes or lesions noted Course - Re-evaluation Re-evalutation: 11/04/17 16:04 Pt feels better on oxygen, 2-3L here and is at 90-93% on it. He has also had solumedrol IV here and duoneb/albuterol treatments that he thinks helped. chest x ray reports intersitial edema and cardiomegaly. Pt has an elevated temperature but is not febrile. WBC elevated at 10.6, potassium low at 3.2, given oral potassium here. EKGs, multiple show no STEMI, no abnormality, pt has not had any chest pain at all. first troponin was 0.095, second decreased at 0.06. Dr. Quiroz accepts pt for admission at this time. 11/04/17 21:38 11/04/17 21:40 - Vital Signs Vital signs: Temp Pulse Resp BP Pulse Ox 98.7 F 56 L 16 109/58 L 95 11/04/17 18:44 11/04/17 20:35 11/04/17 20:35 11/04/17 18:44 11/04/17 20:35 - Laboratory Result Diagrams: 11/04/17 11:16 11/04/17 11:16 Laboratory results interpreted by me: 11/04/17 11/04/17 11:16 11:16 WBC 10.6 H RBC 4.12 L Hgb 12.0 L Hct 35.1 L RDW 15.2 H Seg Neutrophils % 80.0 H Lymphocytes % 11.9 L Absolute Neutrophils 8.5 H Sodium 133.5 L Potassium 3.2 L Chloride 93 L Glucose 112 H Calcium 8.2 L Discharge - Discharge Clinical Impression: Cough, Weakness, Hypoxia Condition: Stable Disposition: ADMITTED INPATIENT Admitting Provider: Adolfoist - [facility] Admitted: Telemetry
[2017-11-04] MEDS ORDERED: MAGNESIUM HYDROXIDE SUSP 30 ML UDCUP PO PRN (16:24)
[2017-11-04] MEDS ORDERED: TEMAZEPAM 7.5 MG CAPSULE PO PRN (16:24)
[2017-11-04] MEDS ORDERED: ONDANSETRON HCL INJ/PF 4 MG/2 ML SDV IV PRN (16:24)
[2017-11-04] MEDS ORDERED: RINGERS SOLUTION,LACTATED 1,000 ML IV PRN (17:12)
--- NOTE | 2017-11-04 17:29 | PDOC H&P ---
History of Present Illness Admission Date/PCP: TOÑO RICE MD Patient complains of: Difficulty breathing, weakness and cough x few days History of Present Illness: Patient presents to the emergency room with complaints of difficulty breathing which started about 2 days ago. He said he had been weak and he has also had a cough productive of yellowish sputum. Was found to be hypoxemic to the tune of 79% on initial presentation. There was some questionable chest pain and so he had a cardiac workup done including serial troponins that were negative times 2 and denies chest pain at the time of my exam. He shows no acute findings. He denies any prior history of COPD however patient is a [id number] smoker and still smokes. Chest x-ray suggest chronic interstitial changes and cardiomegaly. Patient claims to have been compliant with his medications. He gives a history of coronary artery disease but denies any recent issue with his heart Past Medical History Cardiac Medical History: Reports: Congestive Heart Failure, Coronary Artery Disease, Myocardial Infarction Denies: Atrial Fibrillation, Hyperlipidema, Hypertension, Peripheral Vascular Disease, Pulmonary Embolism, Heart Murmur Pulmonary Medical History: Reports: Pneumonia Denies: Asthma, Bronchitis, Chronic Obstructive Pulmonary Disease (COPD), Respiratory Failure, Sleep Apnea, Tuberculosis Neurological Medical History: Denies: Seizures Endocrine Medical History: Denies: Hyperthyroidism, Hypothyroidism Renal/ Medical History: Denies: End Stage Renal Disease Malignancy Medical History: Denies: Breast Cancer, Cervical Cancer, Leukemia, Lung Cancer, Ovarian Cancer GI Medical History: Reports: Gastroesophageal Reflux Disease Denies: Crohn's Disease, Hiatal Hernia Musculoskeltal Medical History: Denies: Arthritis, Fibromyalgia Psychiatric Medical History: Reports: Post Traumatic Stress Disorder Denies: Bipolar Disorder, Dementia, Depression Hematology: Reports: Anemia - currently Denies: Hemophilia, Sickle Cell Disease Infectious Medical History: Denies: HIV Past Surgical History Past Surgical History: Reports: Appendectomy - 2003, Cardiac Catheterization - stents x 2, Cholecystectomy - 2009, Gastric Bypass Surgery - (x2) surgery to repair Denies: Colostomy, Coronary Artery Bypass Graft, Herniorrhaphy, Pacemaker, Tonsillectomy Social History Information Source: Patient Lives with: Family Smoking Status: Current Every Day Smoker Frequency of Alcohol Use: None Hx Recreational Drug Use: No Hx Prescription Drug Abuse: No - Advance Directive Resuscitation Status: Full Code Family History Family History: Hypertension Parental Family History Reviewed: Yes Children Family History Reviewed: NA Sibling(s) Family History Reviewed.: NA Medication/Allergy Home Medications: Atorvastatin Calcium 40 mg PO QHS 10/05/14 Furosemide [Lasix 40 mg Tablet] 40 mg PO DAILY 10/05/14 Lurasidone HCl [Latuda] 40 mg PO DAILY 10/05/14 Pantoprazole Sodium [Protonix] 40 mg PO BID 10/05/14 Alprazolam 1 mg PO TID 02/05/16 Gabapentin 600 mg PO TID 02/05/16 Levomilnacipran HCl [Fetzima] 120 mg PO DAILY 02/05/16 Oxycodone HCl [Oxycontin] 30 mg PO BID 02/05/16 Hydrocodone/Acetaminophen [[place] 5-325 Tablet] 1 each PO Q6 #10 tablet 05/03/17 Cephalexin Monohydrate [Keflex 500 mg Capsule] 500 mg PO Q6H 5 Days capsule Allergies/Adverse Reactions: No Known Allergies Allergy (Verified 11/04/17 10:24) Review of Systems Constitutional: PRESENT: fatigue, weakness Eyes: ABSENT: visual disturbances Nose, Mouth, and Throat: ABSENT: sore throat Cardiovascular: PRESENT: dyspnea on exertion, edema. ABSENT: chest pain, palpitations Respiratory: PRESENT: cough, dyspnea, sputum Genitourinary: ABSENT: dysuria, hematuria Musculoskeletal: ABSENT: joint swelling Neurological: ABSENT: abnormal gait, abnormal speech, confusion, dizziness, focal weakness, syncope Physical Exam Vital Signs: Temp Pulse Resp BP Pulse Ox 98.6 F 82 18 114/70 91 L 11/04/17 15:36 11/04/17 10:40 11/04/17 15:01 11/04/17 15:00 11/04/17 15:01 Intake & Output 11/03/17 11/04/17 11/05/17 06:59 06:59 06:59 Weight 83.1 kg General appearance: PRESENT: no acute distress, thin Head exam: PRESENT: atraumatic Eye exam: PRESENT: other - small left bruise infraorbital Ear exam: PRESENT: normal external ear exam Neck exam: ABSENT: carotid bruit, JVD, lymphadenopathy, thyromegaly Respiratory exam: PRESENT: crackles, decreased breath sounds, rhonchi, symmetrical, unlabored, wheezes. ABSENT: tachypnea Cardiovascular exam: PRESENT: RRR. ABSENT: diastolic murmur, rubs, systolic murmur GI/Abdominal exam: PRESENT: normal bowel sounds, soft. ABSENT: distended, guarding, mass, organolmegaly, rebound, tenderness Rectal exam: PRESENT: deferred Extremities exam: PRESENT: full ROM. ABSENT: calf tenderness, clubbing, pedal edema Musculoskeletal exam: PRESENT: ambulatory Neurological exam: PRESENT: alert, awake, oriented to person, oriented to place , oriented to time, oriented to situation, CN II-XII grossly intact. ABSENT: motor sensory deficit Psychiatric exam: PRESENT: appropriate affect Results Laboratory Results: 11/04/17 11:16 11/04/17 11:16 11/04/17 11/04/17 11:16 11:16 WBC 10.6 H RBC 4.12 L Hgb 12.0 L Hct 35.1 L MCV 85 MCH 29.1 MCHC 34.2 RDW 15.2 H Plt Count 264 Seg Neutrophils % 80.0 H Lymphocytes % 11.9 L Monocytes % 6.2 Eosinophils % 1.1 Basophils % 0.8 Absolute Neutrophils 8.5 H Absolute Lymphocytes 1.3 Absolute Monocytes 0.7 Absolute Eosinophils 0.1 Absolute Basophils 0.1 Sodium 133.5 L Potassium 3.2 L Chloride 93 L Carbon Dioxide 29 Anion Gap 12 BUN 11 Creatinine 0.82 Est GFR ( Amer) > 60 Est GFR (Non-Af Amer) > 60 Glucose 112 H Calcium 8.2 L Total Bilirubin 0.9 AST 34 ALT 30 Alkaline Phosphatase 121 Total Protein 6.7 Albumin 3.6 11/04/17 11/04/17 11:16 14:45 Troponin I 0.095 0.060 Impressions: Chest X-Ray 11/04/17 10:41 IMPRESSION: Cardiomegaly. Chronic interstitial changes. Assessment & Plan - Diagnosis (1) Acute hypoxemic respiratory failure Is this a current diagnosis for this admission?: Yes Plan: Patient will be placed on oxygen. His hypoxemia may be secondary to COPD as well as pneumonia. We will see if he improves while in hospital otherwise he may need home oxygen (2) COPD with acute exacerbation Is this a current diagnosis for this admission?: Yes Plan: Although previously undiagnosed patient has more than a [id number] history of smoking. Will place on bronchodilators as well as steroids (3) Hypokalemia due to loss of potassium Is this a current diagnosis for this admission?: Yes Plan: Likely secondary to diuretic use. Will replace and monitor (4) Diabetes mellitus Qualifiers: Diabetes mellitus type: type 2 Diabetes mellitus complication status: with neurologic complications Diabetes mellitus complication detail: with unspecified neuropathy Is this a current diagnosis for this admission?: Yes Plan: Patient is on chronic narcotic analgesic partly because of this (5) Pneumonia, organism unspecified Is this a current diagnosis for this admission?: Yes Plan: We will obtain sputum cultures and started on empiric ceftriaxone and Zithromax (6) history of gastrojejunal ulcer Is this a current diagnosis for this admission?: Yes Plan: We will continue proton pump inhibitors (7) Chest pain Qualifiers: Chest pain type: chest pain on breathing Qualified Code(s): R07.1 - Chest pain on breathing; R07.81 - Pleurodynia Is this a current diagnosis for this admission?: Yes Plan: Pleuritic. ACS has been ruled out. We will continue judicious pain management - Time Time Spent: 30 to 50 Minutes Medications reviewed and adjusted accordingly: Yes Anticipated discharge: Home Within: within 72 hours - Inpatient Certification Based on my medical assessment, after consideration of the patient's comorbidities, presenting symptoms, or acuity I expect that the services needed warrant INPATIENT care.: Yes Medical Necessity: Need for Nebulizer Therapy and Monitoring of Response, Need for IV Antibiotics
--- NOTE | 2017-11-04 17:59 | EKG REPORT ---
SEVERITY:- ABNORMAL ECG - SINUS RHYTHM LEFT ANTERIOR FASCICULAR BLOCK NONSPECIFIC INFERIOR ST-T CHANGES : Confirmed by: Matt Frye MD 04-Nov-2017 17:58:21
[2017-11-04] MEDS: FAMOTIDINE 20 MG TABLET PO SCH (19:15)
[2017-11-04] MEDS: GUAIFENESIN 600 MG TABLET.SA PO SCH (19:16)
[2017-11-04] MEDS: METHYLPREDNISOLONE INJ 40 MG/1 ML SDV IV SCH (19:18)
[2017-11-04] MEDS: IPRATROPIUM/ALBUTEROL 0.5-2.5 MG/3 ML AMPUL NEB SCH (20:35)
[2017-11-04] MEDS: OXYCODONE-ACETAMINOPHEN 5-325 MG TABLET PO PRN (21:07)
[2017-11-04] MEDS: RIVAROXABAN 10 MG TABLET PO SCH (21:08)
--- NOTE | 2017-11-04 21:08 | EKG REPORT ---
SEVERITY:- ABNORMAL ECG - SINUS RHYTHM LEFT ANTERIOR FASCICULAR BLOCK BORDERLINE T ABNORMALITIES, DIFFUSE LEADS : Confirmed by: Matt Frye MD 04-Nov-2017 21:08:24
[2017-11-04] MEDS ORDERED: OXYCODONE HCL IR 5 MG TABLET PO ONE (23:45)
[2017-11-05] MEDS: METHYLPREDNISOLONE INJ 40 MG/1 ML SDV IV SCH ×4 (01:08→21:40)
[2017-11-05] MEDS: IPRATROPIUM/ALBUTEROL 0.5-2.5 MG/3 ML AMPUL NEB SCH ×4 (01:42→20:36)
[2017-11-05 06:46] LABS: HEMATOCRIT 35.4 % (37.9-51.0); HEMOGLOBIN 12.2 g/dL (13.5-17.0); MEAN CORPUSCULAR HEMOGLOBIN 29.1 pg (27.0-33.4); MEAN CORPUSCULAR HGB CONC 34.4 g/dL (32.0-36.0); MEAN CORPUSCULAR VOLUME 85 fl (80-97); PLATELET COUNT 248 10^3/uL (150-450); RED BLOOD COUNT 4.19 10^6/uL (4.35-5.55); RED CELL DISTRIBUTION WIDTH 15.1 % (11.5-14.0); WHITE BLOOD COUNT 6.8 10^3/uL (4.0-10.5)
[2017-11-05 07:45] LABS: ANION GAP 14 (5-19); BLOOD UREA NITROGEN 15 mg/dL (7-20); CALCIUM 8.8 mg/dL (8.4-10.2); CARBON DIOXIDE 30 mmol/L (22-30); CHLORIDE 96 mmol/L (98-107); GLUCOSE 145 mg/dL (75-110); POTASSIUM 3.8 mmol/L (3.6-5.0); SODIUM 140.4 mmol/L (137-145)
[2017-11-05] MEDS: OXYCODONE-ACETAMINOPHEN 5-325 MG TABLET PO PRN (08:39)
--- NOTE | 2017-11-05 09:42 | Physician Advisory Note ---
Physician Advisor ProgressNote .: Pursuant to the plan for [facility], I have reviewed the medical record for this patient. Physician Advisor Statement: Please consider documenting, if you agree: 1. "PNA, suspect gram-___ type; suspect no infiltrates on CXR in this case because " (Already documented this evidence so far: rales, rhonchi, hypoxemia, cough , weakness, sputum, AGARWAL, pleuritic CP, AGARWAL. Type PNA suspected can be based on what abx were chosen to cover.) OR: "Acute bronchitis", or ... 2. "Chronic CHF, suspect ____ type" ["chronic HF w/preserved EF"? - 2011 ECHO said EF nl] 3. "Acute hyponatremia, suspect due to , resolved" 4. "Anemia, suspect chronic type" [nutritional ___ defic? Fe defic due to chronic blood loss, likely from source?] 5. "Opioid dependence" Status: 62yo male, still smoking, with underlying CAD that required stent, chronic ___ CHF, DM-2 w/neuropathy, and anemia w/Hgb 12.0, no previous dx of COPD or asthma, presented with tremendous hypoxemia of 79% on RA, with mult other s/s as mentioned above, along with elevated trop Is and interstitial edema /cardiomegaly on CXR that leads one to concern for CHF exacerbation, acute hyponatremia, mildly elevated temp & WBC. Kept on daily po Lasix, but also given IVF - risk for fluid overload. Effects of hypoxemia worse given anemia, & that much more risky given underlying CAD. Needing Solumedrol for suspected COPD exacerbation, but this can increase risk from infection, too - so overall high severity of illness/risk of decompensation. Attending appears to expect patient to require at least 2 MNs in hospital, & this sounds quite reasonable given what was known at time of adm. Appropriate for Inpatient status. - If attending finds, on review of pt today, however, that he is actually amazingly improved already compared to what was expected, and can be safely d/c' d home, please document, if this is accurate, "I was certainly expecting pt to require 2MNs at the time of admission. I am quite surprised that pt is so quickly improved." Thanks! CK
[2017-11-05] MEDS ORDERED: CEFTRIAXONE 1 GM/D5W RTU 1 GM/50 ML RTUPB IV SCH (10:00)
[2017-11-05] MEDS: FUROSEMIDE 40 MG TABLET PO SCH (10:32)
[2017-11-05] MEDS: DOCUSATE SODIUM 100 MG CAPSULE PO SCH (10:32)
[2017-11-05] MEDS: FAMOTIDINE 20 MG TABLET PO SCH ×2 (10:32→18:30)
[2017-11-05] MEDS: CEFTRIAXONE SODIUM 1,000 MG in DEXTROSE 5%-WATER 50 ML IV SCH (10:32)
[2017-11-05] MEDS: GUAIFENESIN 600 MG TABLET.SA PO SCH ×2 (10:32→21:39)
[2017-11-05] MEDS ORDERED: AZITHROMYCIN 500 MG in DEXTROSE 5%-WATER 250 ML IV SCH (12:00)
[2017-11-05] MEDS ORDERED: ONDANSETRON HCL INJ/PF 4 MG/2 ML SDV IV PRN (12:00)
--- NOTE | 2017-11-05 12:55 | PDOC PROGRESS REPORT ---
Subjective Progress Note for:: 11/05/17 Subjective:: Patient says he feels better today and states his breathing is improved. He denies any chest pain nausea vomiting. He denies any prior history of CHF. Reason For Visit: ACUTE RESPIRATORY FAILURE COPD WITH ACUTE Physical Exam Vital Signs: Temp Pulse Resp BP Pulse Ox 98.1 F 71 18 110/64 97 11/05/17 11:35 11/05/17 11:35 11/05/17 11:35 11/05/17 11:35 11/05/17 11:35 Intake & Output 11/04/17 11/05/17 11/06/17 06:59 06:59 06:59 Intake Total 305 Balance 305 Weight 81.6 kg General appearance: PRESENT: no acute distress Head exam: PRESENT: atraumatic Eye exam: PRESENT: conjunctiva pink, EOMI, PERRLA. ABSENT: scleral icterus Ear exam: PRESENT: normal external ear exam Respiratory exam: PRESENT: rales, rhonchi - RLL >L Cardiovascular exam: PRESENT: RRR, +S1, +S2. ABSENT: diastolic murmur, rubs, systolic murmur GI/Abdominal exam: PRESENT: normal bowel sounds, soft. ABSENT: distended, guarding, mass, organolmegaly, rebound, tenderness Rectal exam: PRESENT: deferred Extremities exam: ABSENT: +1 edema, +2 edema Neurological exam: PRESENT: alert, awake, oriented to person, oriented to place , oriented to time Results Laboratory Results: 11/05/17 06:04 11/05/17 07:11 11/05/17 11/05/17 11/05/17 06:04 06:04 07:11 WBC 6.8 RBC 4.19 L Hgb 12.2 L Hct 35.4 L MCV 85 MCH 29.1 MCHC 34.4 RDW 15.1 H Plt Count 248 Sodium Cancelled 140.4 Potassium Cancelled 3.8 Chloride Cancelled 96 L Carbon Dioxide Cancelled 30 Anion Gap Cancelled 14 BUN Cancelled 15 Creatinine Cancelled 0.70 Est GFR ( Amer) Cancelled > 60 Est GFR (Non-Af Amer) Cancelled > 60 Glucose Cancelled 145 H Calcium Cancelled 8.8 Magnesium Cancelled 2.4 H Impressions: Chest X-Ray 11/04/17 10:41 IMPRESSION: Cardiomegaly. Chronic interstitial changes. Assessment & Plan - Diagnosis (1) Anemia Qualifiers: Anemia type: unspecified type Qualified Code(s): D64.9 - Anemia, unspecified Is this a current diagnosis for this admission?: Yes Plan: Very mild. Follow up with out patient (2) Acute hypoxemic respiratory failure Is this a current diagnosis for this admission?: Yes Plan: Patient will be placed on oxygen. His hypoxemia may be secondary to COPD as well as pneumonia. (3) COPD with acute exacerbation Is this a current diagnosis for this admission?: Yes Plan: Although previously undiagnosed patient has more than a [id number]-[id number] history of smoking. Cont bronchodilators as well as steroids (4) Hypokalemia due to loss of potassium Is this a current diagnosis for this admission?: Yes Plan: Likely secondary to diuretic use. replaced (5) Diabetes mellitus Qualifiers: Diabetes mellitus type: type 2 Diabetes mellitus complication status: with neurologic complications Diabetes mellitus complication detail: with unspecified neuropathy Is this a current diagnosis for this admission?: Yes Plan: Cont SSI and basal insulin (6) Pneumonia, organism unspecified Is this a current diagnosis for this admission?: Yes Plan: We will obtain sputum cultures and started on empiric ceftriaxone and Zithromax Organism is unspecified and unknown (7) history of gastrojejunal ulcer Is this a current diagnosis for this admission?: Yes Plan: Continue PPI (8) Chest pain Qualifiers: Chest pain type: chest pain on breathing Qualified Code(s): R07.1 - Chest pain on breathing; R07.81 - Pleurodynia Is this a current diagnosis for this admission?: Yes Plan: Pleuritic. ACS has been ruled out. We will continue judicious pain management (9) Hyponatremia Is this a current diagnosis for this admission?: Yes Plan: resolved likely from diuretic (10) Chronic narcotic dependence Is this a current diagnosis for this admission?: Yes Plan: Chronic pain on Narcotics for back pain - Time Time Spent with patient: Less than 15 minutes Smoking Cessation Education: 3 to 10 minutes Medications reviewed and adjusted accordingly: Yes Anticipated discharge: Home Within: within 48 hours - Inpatient Certification Based on my medical assessment, after consideration of the patient's comorbidities, presenting symptoms, or acuity I expect that the services needed warrant INPATIENT care.: Yes Medical Necessity: Need for IV Antibiotics, Risk of Complication if Not Cared For in Hospital - Plan Summary Plan Summary: No clear evidence of CHF. Will obtain BNP and 2D echo for further clarification
[2017-11-05] MEDS: OXYCODONE HCL IR 5 MG TABLET PO PRN ×2 (14:04→19:48)
[2017-11-05] MEDS: ACETAMINOPHEN 325 MG TABLET PO PRN (18:29)
[2017-11-05] MEDS: GABAPENTIN 400 MG CAPSULE PO SCH ×2 (18:30→22:46)
[2017-11-05] MEDS: ATORVASTATIN CALCIUM 40 MG TABLET PO SCH (21:39)
[2017-11-05] MEDS: MELATONIN 5 MG TABLET PO SCH (21:39)
[2017-11-05] MEDS: OXYCODONE HCL SR 10 MG TABLET PO SCH (21:40)
[2017-11-05] MEDS: RIVAROXABAN 10 MG TABLET PO SCH (21:40)
[2017-11-05] MEDS ORDERED: (PENDING PHARMACY ID) (Oxycodone Hcl [Oxycontin] 30 MG) PO SCH (22:00)
[2017-11-06] MEDS: IPRATROPIUM/ALBUTEROL 0.5-2.5 MG/3 ML AMPUL NEB SCH ×3 (02:12→14:16)
[2017-11-06] MEDS: METHYLPREDNISOLONE INJ 40 MG/1 ML SDV IV SCH ×2 (04:42→13:05)
[2017-11-06] MEDS: GABAPENTIN 400 MG CAPSULE PO SCH ×3 (04:42→17:58)
[2017-11-06] MEDS: OXYCODONE HCL IR 5 MG TABLET PO PRN ×2 (04:42→17:57)
[2017-11-06] MEDS: ACETAMINOPHEN 325 MG TABLET PO PRN (07:58)
--- NOTE | 2017-11-06 09:19 | XCELERA REPORT ---
[address] [address] Transthoracic Echocardiogram Report Name: WILLIE RUBI Age: 62 yrs Gender: Male : 1955 Patient Status: Inpatient Patient Location: [address] [place] [address] Study Date: 11/05/2017 02:33 PM Height: 69 in Weight: 179 lb BSA: 2.0 m2 Procedure: A complete two-dimensional transthoracic echocardiogram was performed (2D, M-mode, spectral and color flow Doppler). The study was technically adequate with some images being suboptimal in quality. Reason For Study: Hypoxemia Ordering Physician: JESU HO Performed By: Dorothea Orellana Interpretation Summary The left ventricular ejection fraction is normal. Doppler measurements suggest impaired left ventricular relaxation, which is associated with grade I/IV or mild diastolic dysfunction There is borderline concentric left ventricular hypertrophy. The left ventricle is grossly normal size. Wall motion cannot be accurately commented on, but no definite regional wall motion abnormalities noted. The right ventricle is mildly dilated. The right ventricular systolic function is normal. Borderline right atrial enlargement. Borderline left atrial enlargement. There is a mild amount of mitral regurgitation There is no mitral valve stenosis. There is no aortic valve stenosis No aortic regurgitation is present. There is a trace to mild amount of tricuspid regurgitation There is mild pulmonary hypertension by echo Right ventricular systolic pressure is estimated to be elevated at 30- 40mmHg. The aortic root is not well visualized but is probably normal size. The inferior vena cava was not well visualized There is no pericardial effusion. MMode/2D Measurements & Calculations RVDd: 3.3 cm LVIDd: 5.2 cm FS: 37.7 % Ao root diam: 3.5 cm IVSd: 0.88 cm LVIDs: 3.2 cm EDV(Teich): 126.9 ml LVPWd: 0.90 cmESV(Teich): 41.2 ml Ao root area: 9.7 cm2 EF(Teich): 67.5 % LA dimension: 3.7 cm LVOT diam: 2.2 cm LVOT area: 3.8 cm2 Doppler Measurements & Calculations MV E max marcie: MV P1/2t max marcie: Ao V2 max: LV V1 max P.7 cm/sec 100.2 cm/sec 154.4 cm/sec 6.9 mmHg MV A max marcie: MV P1/2t: 69.8 msec Ao max PG: LV V1 max: 92.8 cm/sec MVA(P1/2t): 3.2 cm2 9.5 mmHg 131.3 cm/sec MV E/A: 1.1 MV dec slope: STEPHEN(V,D): 3.2 cm2 420.5 cm/sec2 PA V2 max: TR max marcie: 90.3 cm/sec 290.5 cm/sec PA max PG: TR max P.8 mmHg 3.3 mmHg Left Ventricle The left ventricle is grossly normal size. There is borderline concentric left ventricular hypertrophy. The left ventricular ejection fraction is normal. Doppler measurements suggest impaired left ventricular relaxation, which is associated with grade I/IV or mild diastolic dysfunction. Wall motion cannot be accurately commented on, but no definite regional wall motion abnormalities noted. Right Ventricle The right ventricle is mildly dilated. There is normal right ventricular wall thickness. The right ventricular systolic function is normal. Atria Borderline right atrial enlargement. Borderline left atrial enlargement. Interarterial septum not well visualized and not well dopplered. Cannot comment on ASD/PFO presence. Mitral Valve The mitral valve is grossly normal. There is no mitral valve stenosis. There is a mild amount of mitral regurgitation. Aortic Valve The aortic valve is grossly normal. There is no aortic valve stenosis. No aortic regurgitation is present. Tricuspid Valve The tricuspid valve is not well visualized, but is grossly normal. There is no tricuspid stenosis. There is a trace to mild amount of tricuspid regurgitation. There is mild pulmonary hypertension by echo. Right ventricular systolic pressure is estimated to be elevated at 30-40mmHg. Pulmonic Valve The pulmonic valve is not well visualized. Great Vessels The aortic root is not well visualized but is probably normal size. The inferior vena cava was not well visualized. Effusions There is no pericardial effusion. : JESU HO > Caroline Menjivar
[2017-11-06] MEDS: DOCUSATE SODIUM 100 MG CAPSULE PO SCH (09:25)
[2017-11-06] MEDS: FAMOTIDINE 20 MG TABLET PO SCH ×2 (09:26→17:58)
[2017-11-06] MEDS: GUAIFENESIN 600 MG TABLET.SA PO SCH ×2 (09:26→22:04)
[2017-11-06] MEDS: FUROSEMIDE 40 MG TABLET PO SCH (09:26)
[2017-11-06] MEDS: OXYCODONE HCL SR 10 MG TABLET PO SCH ×2 (09:27→22:04)
[2017-11-06] MEDS: CEFTRIAXONE SODIUM 1,000 MG in DEXTROSE 5%-WATER 50 ML IV SCH (09:32)
[2017-11-06] MEDS ORDERED: FLUOXETINE HCL 20 MG CAPSULE PO SCH (10:00)
[2017-11-06] MEDS ORDERED: [UNRECOGNIZED DRUG - OTHER] PO SCH (10:00)
[2017-11-06] MEDS ORDERED: IRON POLYSACCHARIDES COMPLEX 150 MG CAPSULE PO SCH (10:00)
--- NOTE | 2017-11-06 18:14 | PDOC PROGRESS REPORT ---
Subjective Progress Note for:: 11/06/17 Subjective:: Patient refers that his breathing is a lot better. Review of systems All organ systems evaluated and negative except as in subjective All laboratories and significant diagnostics have been reviewed Reason For Visit: ACUTE RESPIRATORY FAILURE COPD WITH ACUTE Physical Exam Vital Signs: Temp Pulse Resp BP Pulse Ox 97.9 F 68 19 119/65 98 11/06/17 07:05 11/06/17 07:05 11/06/17 07:05 11/06/17 07:05 11/06/17 07:05 Intake & Output 11/05/17 11/06/17 11/07/17 06:59 06:59 06:59 Intake Total 305 1140 Balance 305 1140 Weight 81.6 kg General appearance: PRESENT: cooperative, thin Head exam: PRESENT: atraumatic, normocephalic Eye exam: PRESENT: conjunctiva pink, EOMI, PERRLA Ear exam: PRESENT: normal external ear exam Mouth exam: PRESENT: moist Neck exam: PRESENT: full ROM. ABSENT: JVD, lymphadenopathy, tenderness Respiratory exam: PRESENT: crackles - Soft basilar crackles Cardiovascular exam: PRESENT: irregular rhythm. ABSENT: diastolic murmur, systolic murmur Vascular exam: PRESENT: normal capillary refill GI/Abdominal exam: PRESENT: normal bowel sounds, soft. ABSENT: tenderness Extremities exam: PRESENT: full ROM. ABSENT: pedal edema Musculoskeletal exam: PRESENT: ambulatory Neurological exam: PRESENT: alert, awake, oriented to person, oriented to place , oriented to time, oriented to situation, CN II-XII grossly intact Psychiatric exam: PRESENT: appropriate affect, normal mood Skin exam: PRESENT: intact, normal color Results Laboratory Results: 11/05/17 06:04 11/05/17 07:11 11/05/17 07:11 Sodium 140.4 Potassium 3.8 Chloride 96 L Carbon Dioxide 30 Anion Gap 14 BUN 15 Creatinine 0.70 Est GFR ( Amer) > 60 Est GFR (Non-Af Amer) > 60 Glucose 145 H Calcium 8.8 Magnesium 2.4 H 11/05/17 07:11 NT-Pro-B Natriuret Pep 365 Impressions: Chest X-Ray 11/04/17 10:41 IMPRESSION: Cardiomegaly. Chronic interstitial changes. Assessment & Plan - Diagnosis (1) Acute hypoxemic respiratory failure Is this a current diagnosis for this admission?: Yes Plan: Patient saturating well without the need of oxygen (2) Anemia Qualifiers: Anemia type: unspecified type Qualified Code(s): D64.9 - Anemia, unspecified Is this a current diagnosis for this admission?: Yes Plan: Stable (3) COPD with acute exacerbation Is this a current diagnosis for this admission?: Yes Plan: Improve. To transition to Advair, Spiriva and oral steroid (4) Chest pain Qualifiers: Chest pain type: chest pain on breathing Qualified Code(s): R07.1 - Chest pain on breathing; R07.81 - Pleurodynia Is this a current diagnosis for this admission?: Yes Plan: Resolved (5) Chronic narcotic dependence Is this a current diagnosis for this admission?: Yes Plan: Continue with outpatient regimen (6) Hypokalemia due to loss of potassium Is this a current diagnosis for this admission?: Yes Plan: Replaced (7) Hyponatremia Is this a current diagnosis for this admission?: Yes Plan: Resolved (8) Tobacco dependence Is this a current diagnosis for this admission?: Yes Plan: Educated about quitting. Appears motivated - Time Time Spent with patient: 15-24 minutes Medications reviewed and adjusted accordingly: Yes Anticipated discharge: Home Within: within 24 hours - Inpatient Certification Based on my medical assessment, after consideration of the patient's comorbidities, presenting symptoms, or acuity I expect that the services needed warrant INPATIENT care.: Yes I certify that my determination is in accordance with my understanding of Medicare's requirements for reasonable and necessary INPATIENT services [42 CFR 412.3e].: Yes Medical Necessity: Need Close Monitoring Due to Risk of Patient Decompensation
[2017-11-06] MEDS ORDERED: TIOTROPIUM BROMIDE DPI 5 CAP/KIT (18 MCG/CAP) IH SCH (22:00)
[2017-11-06] MEDS ORDERED: FLUTICASONE/SALMETEROL DISKUS 500-50 MCG/DOSE IH SCH (22:00)
[2017-11-06] MEDS: MELATONIN 5 MG TABLET PO SCH (22:03)
[2017-11-06] MEDS: ATORVASTATIN CALCIUM 40 MG TABLET PO SCH (22:04)
[2017-11-06] MEDS: RIVAROXABAN 10 MG TABLET PO SCH (22:05)
[2017-11-07] MEDS: GABAPENTIN 400 MG CAPSULE PO SCH ×2 (00:12→05:06)
[2017-11-07] MEDS: ALBUTEROL SULFATE 0.083% NEB 2.5 MG/3 ML AMPUL NEB PRN ×2 (05:15→08:08)
[2017-11-07 08:56] VITALS: BP 113/60
[2017-11-07] MEDS ORDERED: AZITHROMYCIN 250 MG TABLET PO SCH (10:00)
[2017-11-07] MEDS ORDERED: PREDNISONE 20 MG TABLET PO SCH (10:00)
--- NOTE | 2017-11-07 16:23 | PDOC DISCHARGE SUMMARY ---
General - Admit/Disc Date/PCP Admission Date/Primary Care Provider: 11/04/17 16:39 TOÑO RICE MD Discharge Date: 11/07/17 - Discharge Diagnosis (1) COPD with acute exacerbation Is this a current diagnosis for this admission?: Yes (2) Acute hypoxemic respiratory failure Is this a current diagnosis for this admission?: Yes (3) Chest pain Is this a current diagnosis for this admission?: Yes (4) Anemia Is this a current diagnosis for this admission?: Yes (5) Chronic narcotic dependence Is this a current diagnosis for this admission?: Yes (6) Hypokalemia due to loss of potassium Is this a current diagnosis for this admission?: Yes (7) Hyponatremia Is this a current diagnosis for this admission?: Yes (8) Tobacco dependence Is this a current diagnosis for this admission?: Yes - Additional Information Resuscitation Status: Full Code Discharge Diet: Cardiac Discharge Activity: Activity As Tolerated Prescriptions: Azithromycin [Zithromax 250 mg Tablet] 500 mg PO DAILY #6 tablet Fluticasone/Salmeterol [Advair 500-50 Diskus 14 Dose/Diskus] 1 inh IH Q12 #60 inhaler Guaifenesin [Mucinex Sr 600 mg Tablet.sa] 600 mg PO Q12 #30 tablet.sa Prednisone [Deltasone 20 mg Tablet] 20 mg PO DAILY #5 tablet Tiotropium Ashley [Spiriva Handihaler 5 Cap/Kit (18 Mcg/Cap)] 1 cap IH QHS #30 kit Home Medications: Atorvastatin Calcium 40 mg PO QHS 10/05/14 Furosemide [Lasix 40 mg Tablet] 40 mg PO DAILY 10/05/14 Pantoprazole Sodium [Protonix] 40 mg PO BID 10/05/14 Oxycodone HCl [Oxycontin] 30 mg PO Q12 02/05/16 Fluoxetine HCl [Prozac] 40 mg PO DAILY 11/04/17 Melatonin [Melatonin 5 mg Tablet] 5 mg PO QHS 11/04/17 Gabapentin [Neurontin 400 mg Capsule] 400 mg PO Q6 11/05/17 Iron Aspgly,Ps/C/B12/FA/Ca/Suc [Ferrex 150 Forte Plus Capsule] 1 each PO DAILY 11/05/17 Oxycodone HCl [Oxy-Ir 5 mg Tablet] 10 mg PO Q6HP PRN 11/05/17 Azithromycin [Zithromax 250 mg Tablet] 500 mg PO DAILY #6 tablet 11/07/17 Fluticasone/Salmeterol [Advair 500-50 Diskus 14 Dose/Diskus] 1 inh IH Q12 #60 inhaler 11/07/17 Guaifenesin [Mucinex Sr 600 mg Tablet.sa] 600 mg PO Q12 #30 tablet.sa 11/07/17 Prednisone [Deltasone 20 mg Tablet] 20 mg PO DAILY #5 tablet 11/07/17 Tiotropium Ashley [Spiriva Handihaler 5 Cap/Kit (18 Mcg/Cap)] 1 cap IH QHS #30 kit 11/07/17 History of Present Illness History of Present Illness: WILLIE RUBI is a 62 year old male patient who presented to the emergency room with complaints of difficulty breathing which started about 2 days ago prior to presentation. He said he had been weak and he also had a cough productive of yellowish sputum. Was found to be hypoxemic with a pulse ox of 79% on initial presentation. There was some questionable chest pain and so he had a cardiac workup done including serial troponins that were negative times 2. He denied any prior history of COPD however patient is a [id number] smoker and still smokes. Chest x-ray showed chronic interstitial changes and cardiomegaly. Patient claimed to have been compliant with his medications. He gave a history of coronary artery disease but denied any recent issue with his heart Hospital Course Hospital Course: Patient was admitted under the hospitalist service. He was placed on nebulizer treatment, Mucinex, IV steroids and antibiotic treatment for what was felt to be an acute exacerbation of COPD with acute hypoxemic respiratory failure. Patient progressed as expected and he was weaned off oxygen to room air. Patient has been strongly encouraged as to quit smoking since he may return back under worse or similar circumstances. Patient appears to be motivated to quit smoking. Potassium was replaced while in-house. Hyponatremia resolved with gentle hydration. Chest pain was deemed to be noncardiac. Since he had achieved maximum benefit of hospitalization stay prompted to discharge Physical Exam Vital Signs: Temp Pulse Resp BP Pulse Ox 98.0 F 83 16 115/66 100 11/07/17 07:30 11/07/17 07:30 11/07/17 07:30 11/07/17 07:30 11/07/17 07:30 Intake & Output 11/06/17 11/07/1718 06:59 06:59 06:59 Intake Total 1140 1702 Balance 1140 1702 Weight 81.4 kg General appearance: PRESENT: cooperative, thin Head exam: PRESENT: atraumatic, normocephalic Eye exam: PRESENT: conjunctiva pink, EOMI, PERRLA Ear exam: PRESENT: normal external ear exam Mouth exam: PRESENT: moist Neck exam: PRESENT: full ROM. ABSENT: JVD, lymphadenopathy, tenderness Respiratory exam: PRESENT: other - adequate movement of air with scaterred wheezes Cardiovascular exam: PRESENT: RRR. ABSENT: diastolic murmur, systolic murmur Vascular exam: PRESENT: normal capillary refill GI/Abdominal exam: PRESENT: normal bowel sounds, soft. ABSENT: tenderness Extremities exam: PRESENT: full ROM. ABSENT: joint swelling, pedal edema Musculoskeletal exam: PRESENT: ambulatory Neurological exam: PRESENT: alert, awake, oriented to person, oriented to place , oriented to time, oriented to situation Psychiatric exam: PRESENT: appropriate affect, normal mood Skin exam: PRESENT: intact, normal color Results Laboratory Results: 11/05/17 06:04 11/05/17 07:11 11/05/17 07:11 NT-Pro-B Natriuret Pep 365 Impressions: Chest X-Ray 11/04/17 10:41 IMPRESSION: Cardiomegaly. Chronic interstitial changes. Qualifiers - * PATIENT BEING DISCHARGED WITH ANY OF THE FOLLOWING DIAGNOSIS: No Plan Discharge Plan: Discharge home Time Spent: Greater than 30 Minutes
== END 2017-11-07 09:30 | disposition home or self-care (01) | DRG 190 ==
LOC: ER 10:23 → UNDOADMIN 16:39 → EH 16:39 → 4S 18:39
PROVIDERS: ADMIT Internal Medicine; ATTEND Internal Medicine
PROC: 3E0F73Z Introduction of Anti-inflammatory into Respiratory Tract, Via Natural or Artificial Opening (ICD-10-PCS; principal; 2017-11-04)
DX: J44.1 Chronic obstructive pulmonary disease with (acute) exacerbation (principal); J96.01 Acute respiratory failure with hypoxia; J18.9 Pneumonia, unspecified organism; E87.1 Hypo-osmolality and hyponatremia; D64.9 Anemia, unspecified; E87.6 Hypokalemia; I25.10 Atherosclerotic heart disease of native coronary artery without angina pectoris; F17.210 Nicotine dependence, cigarettes, uncomplicated; K21.9 Gastro-esophageal reflux disease without esophagitis; F43.10 Post-traumatic stress disorder, unspecified; E11.40 Type 2 diabetes mellitus with diabetic neuropathy, unspecified; I25.2 Old myocardial infarction; Z79.891 Long term (current) use of opiate analgesic; Z79.899 Other long term (current) drug therapy; Z95.5 Presence of coronary angioplasty implant and graft; Z87.11 Personal history of peptic ulcer disease; Z90.49 Acquired absence of other specified parts of digestive tract; Z98.84 Bariatric surgery status; Z82.49 Family history of ischemic heart disease and other diseases of the circulatory system
CPT/HCPCS: 36415; 71046; 80048; 80053; 83735; 83880; 84484; 85025; 85027; 87040; 87070; 87205; 93005; 93010; 93306; 94640; 96365; 96367; 96375; 99285; J0456; J0696; J2405; J2920; J2930; J3490; J7060; J7120; J7620; S0119

== ENCOUNTER 2017-11-15 12:01 | Inpatient (IN) | payer MEDICARE, OTHER ==
--- NOTE | 2017-11-15 12:42 | ER Document Report ---
ED General - General Chief Complaint: Breathing Difficulty Stated Complaint: DIFFICULTY BREATHING Time Seen by Provider: 11/15/17 12:22 Notes: 62-year-old male to the emergency department chief complaint shortness of breath. Patient was recently hospitalized for COPD. Recent diagnosis of COPD. Started on Advair and Spiriva. States that over the last couple of days his breathing is gotten worse. Followed by local primary care doctor. Taking all of his regular medications. Denies any chest pain. States that he does have lower extremity swelling but the lower extremity swelling is actually better than usual. By report from EMS when arrived his oxygen saturations were in the upper 70s.. Breathing treatment in route. Patient states that he feels a little bit better at this time. Patient evaluated medially on arrival. Patient with oxygen saturations of 93% on 3 L of oxygen nasal cannula. Talking in full sentences. TRAVEL OUTSIDE OF THE [place] IN LAST 30 DAYS: No - HPI Onset: Yesterday Onset/Duration: Gradual, Worse Severity: Mild Pain Level: 2 - Related Data Allergies/Adverse Reactions: No Known Allergies Allergy (Verified 11/04/17 10:24) Past Medical History - General Information source: Patient - Social History Smoking Status: Former Smoker Frequency of alcohol use: None Drug Abuse: None Lives with: Family Family History: Reviewed & Not Pertinent, Hypertension - Past Medical History Cardiac Medical History: Reports: Hx Congestive Heart Failure, Hx Coronary Artery Disease, Hx Heart Attack Denies: Hx Atrial Fibrillation, Hx Hypercholesterolemia, Hx Hypertension, Hx Peripheral Vascular Disease, Hx Pulmonary Embolism, Hx Heart Murmur Pulmonary Medical History: Reports: Hx Pneumonia Denies: Hx Asthma, Hx Bronchitis, Hx COPD, Hx Respiratory Failure, Hx Sleep Apnea, Hx Tuberculosis Neurological Medical History: Denies: Hx Cerebrovascular Accident, Hx Seizures Endocrine Medical History: Denies: Hx Graves' Disease, Hx Hyperthyroidism, Hx Hypothyroidism Renal/ Medical History: Reports: Hx Kidney Stones. Denies: Hx Benign Prostatic Hyperplasia, Hx End Stage Renal Disease, Hx Peritoneal Dialysis Malignancy Medical History: Denies Hx Leukemia, Denies Hx Lung Cancer GI Medical History: Reports: Hx Gastroesophageal Reflux Disease, Hx Ulcer. Denies: Hx Crohn's Disease, Hx Hiatal Hernia, Hx Irritable Bowel, Hx Liver Failure, Hx Pancreatitis Musculoskeltal Medical History: Denies Hx Arthritis, Denies Hx Fibromyalgia, Denies Hx Multiple Sclerosis, Denies Hx Muscular Dystrophy Psychiatric Medical History: Reports: Hx Post Traumatic Stress Disorder Denies: Hx Bipolar Disorder, Hx Dementia, Hx Depression, Hx Schizophrenia Traumatic Medical History: Denies: Hx Fractures Infectious Medical History: Denies: Hx HIV Past Surgical History: Reports: Hx Abdominal Surgery - gastric bypass, Hx Appendectomy - 2002, Hx Cardiac Catheterization - stents x 2, Hx Cardiac Surgery - two stents, Hx Cholecystectomy - 2009, Hx Gastric Bypass Surgery - (x2 ) surgery to repair. Denies: Hx Bowel Surgery, Hx Colostomy, Hx Coronary Artery Bypass Graft, Hx Herniorrhaphy, Hx Pacemaker, Hx Tonsillectomy - Immunizations Hx Diphtheria, Pertussis, Tetanus Vaccination: Yes Hx Pneumococcal Vaccination: 12/13/11 Review of Systems - Review of Systems Constitutional: No symptoms reported EENT: No symptoms reported Cardiovascular: No symptoms reported, Dyspnea, Edema Respiratory: Cough, Short of breath, Wheezing Gastrointestinal: No symptoms reported Genitourinary: No symptoms reported Male Genitourinary: No symptoms reported Musculoskeletal: No symptoms reported Skin: No symptoms reported Hematologic/Lymphatic: No symptoms reported Neurological/Psychological: No symptoms reported Physical Exam - Vital signs Vitals: Resp Pulse Ox 12 90 L 11/15/17 12:11 11/15/17 12:11 Interpretation: Normal - General General appearance: Appears well, Alert - HEENT Head: Normocephalic, Atraumatic Eyes: Normal Pupils: PERRL - Respiratory Respiratory status: No respiratory distress Chest status: Nontender Breath sounds: Decreased air movement, Nonproductive cough, Wheezing Chest palpation: Normal - Cardiovascular Rhythm: Regular Heart sounds: Normal auscultation Murmur: No Notes: Bilateral lower extremity edema. 2+ pitting. - Abdominal Inspection: Normal Distension: No distension Bowel sounds: Normal Tenderness: Nontender Organomegaly: No organomegaly - Back Back: Normal, Nontender - Extremities General upper extremity: Normal inspection, Nontender, Normal color, Normal ROM , Normal temperature General lower extremity: Normal inspection, Nontender, Edema, Normal color, Normal ROM, Normal temperature. No: Faraz's sign - Neurological Neuro grossly intact: Yes Cognition: Normal Orientation: AAOx4 Hiram Coma Scale Eye Opening: Spontaneous Samir Coma Scale Verbal: Oriented Samir Coma Scale Motor: Obeys Commands Hiram Coma Scale Total: 15 Speech: Normal Motor strength normal: LUE, RUE, LLE, RLE Sensory: Normal - Psychological Associated symptoms: Normal affect, Normal mood - Skin Skin Temperature: Warm Skin Moisture: Dry Skin Color: Normal Course - Re-evaluation Re-evalutation: 11/15/17 12:47 history of COPD. Recent hospitalization. On standard of care medications. We will continue with breathing treatment at this time. Chest x-ray, labs and reassess. 11/15/17 15:06 Patient improving a little bit. CT consistent with pulmonary edema. No obvious PE. At this time patient is to be readmitted to the hospital. Steroids , breathing treatments given. Will place on antibiotics, Lasix and call for hospital admission. Consulted hospitalist who agrees to admit. 11/15/17 15:10 Laboratory 11/15/17 11/15/17 11/15/17 13:30 13:30 13:30 WBC 11.4 H RBC 3.95 L Hgb 11.3 L Hct 33.7 L MCV 85 MCH 28.6 MCHC 33.5 RDW 15.9 H Plt Count 251 Seg Neutrophils % 86.8 H Lymphocytes % 6.6 L Monocytes % 5.6 Eosinophils % 0.6 Basophils % 0.4 Absolute Neutrophils 9.9 H Absolute Lymphocytes 0.8 Absolute Monocytes 0.6 Absolute Eosinophils 0.1 Absolute Basophils 0.0 Carbonic Acid HCO3/H2CO3 Ratio ABG pH ABG pCO2 ABG pO2 ABG HCO3 ABG Total CO2 ABG O2 Saturation ABG Base Excess FiO2 Sodium 137.7 Potassium 4.3 Chloride 99 Carbon Dioxide 27 Anion Gap 12 BUN 7 Creatinine 0.73 Est GFR ( Amer) > 60 Est GFR (Non-Af Amer) > 60 Glucose 118 H Lactic Acid Calcium 8.1 L Total Bilirubin 0.7 Direct Bilirubin 0.4 Neonat Total Bilirubin Not Reportable Neonat Direct Bilirubin Not Reportable Neonat Indirect Bili Not Reportable AST 22 ALT 23 Alkaline Phosphatase 107 Creatine Kinase 52 L CK-MB (CK-2) 0.96 Troponin I < 0.012 Total Protein 6.0 L Albumin 3.2 L 11/15/17 11/15/17 14:00 14:25 WBC RBC Hgb Hct MCV MCH MCHC RDW Plt Count Seg Neutrophils % Lymphocytes % Monocytes % Eosinophils % Basophils % Absolute Neutrophils Absolute Lymphocytes Absolute Monocytes Absolute Eosinophils Absolute Basophils Carbonic Acid 1.13 HCO3/H2CO3 Ratio 22:1 ABG pH 7.46 H ABG pCO2 37.4 ABG pO2 63.9 L ABG HCO3 25.9 ABG Total CO2 27.1 H ABG O2 Saturation 93.6 L ABG Base Excess 2.2 FiO2 3L Sodium Potassium Chloride Carbon Dioxide Anion Gap BUN Creatinine Est GFR ( Amer) Est GFR (Non-Af Amer) Glucose Lactic Acid 1.4 Calcium Total Bilirubin Direct Bilirubin Neonat Total Bilirubin Neonat Direct Bilirubin Neonat Indirect Bili AST ALT Alkaline Phosphatase Creatine Kinase CK-MB (CK-2) Troponin I Total Protein Albumin Chest X-Ray 11/15/17 12:34 IMPRESSION: Chronic interstitial changes. Cannot exclude a component of pulmonary edema. Clinical correlation is needed. Chest/Abdomen CTA 11/15/17 13:17 IMPRESSION: Pulmonary edema. No PE. - Vital Signs Vital signs: Temp Pulse Resp BP Pulse Ox 19 108/67 89 L 11/15/17 14:00 11/15/17 13:34 11/15/17 14:00 - Laboratory Result Diagrams: 11/15/17 13:30 11/15/17 13:30 Laboratory results interpreted by me: 11/15/17 11/15/17 11/15/17 13:30 13:30 14:25 WBC 11.4 H RBC 3.95 L Hgb 11.3 L Hct 33.7 L RDW 15.9 H Seg Neutrophils % 86.8 H Lymphocytes % 6.6 L Absolute Neutrophils 9.9 H ABG pH 7.46 H ABG pO2 63.9 L ABG Total CO2 27.1 H ABG O2 Saturation 93.6 L Glucose 118 H Calcium 8.1 L Creatine Kinase 52 L Total Protein 6.0 L Albumin 3.2 L - EKG Interpretation by [place] EKG shows normal: Sinus rhythm, Intervals, QRS Complexes, ST-T Waves Maxwell/QRS: Left axis deviation When compared to previous EKG there are: No significant change Discharge - Discharge Clinical Impression: COPD exacerbation CHF (congestive heart failure) Qualifiers: Heart failure type: unspecified Heart failure chronicity: acute on chronic Qualified Code(s): I50.9 - Heart failure, unspecified Condition: Good Disposition: ADMITTED INPATIENT Admitting Provider: Hospitalist [facility] Unit Admitted: Telemetry
[2017-11-15] MEDS ORDERED: METHYLPREDNISOLONE INJ 125 MG/2 ML SDV IV ONE (13:18)
--- NOTE | 2017-11-15 13:30 | EKG REPORT ---
SEVERITY:- BORDERLINE ECG - SINUS RHYTHM BORDERLINE LEFT AXIS DEVIATION BORDERLINE T ABNORMALITIES, ANTERIOR LEADS : Confirmed by: Matt Frye MD 15-Nov-2017 13:29:45
--- NOTE | 2017-11-15 13:31 | RADIOLOGY REPORT (SQ) ---
EXAM DESCRIPTION: CHEST SINGLE VIEW COMPLETED DATE/TIME: 11/15/2017 1:14 pm REASON FOR STUDY: sob COMPARISON: 11/04/2017 NUMBER OF VIEWS: One view. TECHNIQUE: Single frontal radiographic image of the chest acquired. LIMITATIONS: None. FINDINGS: LUNGS AND PLEURA: Diffuse interstitial pattern not significantly changed from the prior. No large effusions. MEDIASTINUM AND HEART: Stable heart size and mediastinal structures. BONY STRUCTURES: No acute findings. HARDWARE: None. OTHER: No other significant finding. IMPRESSION: Chronic interstitial changes. Cannot exclude a component of pulmonary edema. Clinical correlation is needed. TECHNICAL DOCUMENTATION: JOB ID: [id number] Reading location - IP/workstation name: [email or web address]
[2017-11-15] MEDS ORDERED: ONDANSETRON 4 MG TAB.RAPDIS PO ONE (13:35)
[2017-11-15 13:45] LABS: ABSOLUTE EOSINOPHILS # (AUTO) 0.1 10^3/uL (0.0-0.6); ABSOLUTE LYMPHOCYTES (AUTO) 0.8 10^3/uL (0.5-4.7); ABSOLUTE MONOCYTES (AUTO) 0.6 10^3/uL (0.1-1.4); ABSOLUTE NEUT (AUTO) 9.9 10^3/uL (1.7-8.2); BASOPHILS % (AUTO) 0.4 % (0-2); EOSINOPHILS % (AUTO) 0.6 % (0-6); HEMATOCRIT 33.7 % (37.9-51.0); HEMOGLOBIN 11.3 g/dL (13.5-17.0); LYMPHOCYTES % (AUTO) 6.6 % (13-45); MEAN CORPUSCULAR HEMOGLOBIN 28.6 pg (27.0-33.4); MEAN CORPUSCULAR HGB CONC 33.5 g/dL (32.0-36.0); MEAN CORPUSCULAR VOLUME 85 fl (80-97); MONOCYTES % (AUTO) 5.6 % (3-13); PLATELET COUNT 251 10^3/uL (150-450); RED BLOOD COUNT 3.95 10^6/uL (4.35-5.55); RED CELL DISTRIBUTION WIDTH 15.9 % (11.5-14.0); SEGMENTED NEUTROPHILS % (AUTO) 86.8 % (42-78); TOTAL CELLS COUNTED % (AUTO) 100 %; WHITE BLOOD COUNT 11.4 10^3/uL (4.0-10.5)
[2017-11-15] MEDS ORDERED: IPRATROPIUM/ALBUTEROL 0.5-2.5 MG/3 ML AMPUL NEB ONE (13:59)
[2017-11-15 14:32] LABS: ALANINE AMINOTRANSFERASE 23 U/L (21-72); ALBUMIN 3.2 g/dL (3.5-5.0); ALKALINE PHOSPHATASE 107 U/L (38-126); ANION GAP 12 (5-19); ASPARTATE AMINO TRANSFERASE 22 U/L (17-59); BILIRUBIN,DIRECT 0.4 mg/dL (0.0-0.4); BILIRUBIN,TOTAL 0.7 mg/dL (0.2-1.3); BLOOD UREA NITROGEN 7 mg/dL (7-20); CALCIUM 8.1 mg/dL (8.4-10.2); CARBON DIOXIDE 27 mmol/L (22-30); CHLORIDE 99 mmol/L (98-107); CREATINE KINASE 52 U/L (55-170); GLUCOSE 118 mg/dL (75-110); POTASSIUM 4.3 mmol/L (3.6-5.0); SODIUM 137.7 mmol/L (137-145)
[2017-11-15 14:48] LABS: ARTERIAL BLOOD BASE EXCESS 2.2 mmol/L; ARTERIAL BLOOD H2CO3 1.13 mmol/L (1.05-1.35); ARTERIAL BLOOD HCO3 25.9 mmol/L (20-26); ARTERIAL BLOOD O2 SATURATION 93.6 % (94-98); ARTERIAL BLOOD PCO2 37.4 mmHg (35-45); ARTERIAL BLOOD PH 7.46 (7.35-7.45); ARTERIAL BLOOD PO2 63.9 mmHg (80-100); ARTERIAL BLOOD TOTAL CO2 27.1 mmol/L (23-27)
[2017-11-15 14:49] LABS: ARTERIAL BLOOD FIO2 3L
[2017-11-15 14:49] LABS: CREATINE KINASE MB 0.96 ng/mL (<4.55)
[2017-11-15 14:50] LABS: TROPONIN I < 0.012 ng/mL
--- NOTE | 2017-11-15 15:02 | RADIOLOGY REPORT (SQ) ---
EXAM DESCRIPTION: CTA CHEST COMPLETED DATE/TIME: 11/15/2017 2:50 pm REASON FOR STUDY: sob, recent hospitalization COMPARISON: None. TECHNIQUE: CT scan of the chest performed using helical scanning technique with dynamic intravenous contrast injection. Images reviewed with lung, soft tissue and bone windows. Reconstructed coronal and sagittal MPR images reviewed. Additional 3 dimensional post-processing performed to develop Maximal Intensity Projection images (SD P). All images stored on PACS. All CT scanners at this facility use dose modulation, iterative reconstruction, and/or weight based d osing when appropriate to reduce radiation dose to as low as reasonably achievable (ALARA). [facility]: Dose Right [facility]: CareDose [facility]: Dose Right [facility]: Teradose 4D [facility]: [email or web address] CONTRAST TYPE AND DOSE: contrast/concentration: Isovue 370.00 mg/ml; Total Contrast Delivered: 74.0 ml; Total Saline Delivered: 93.1 ml RENAL FUNCTION: BUN 15 creatinine 0.7 RADIATION DOSE: CT Rad equipment meets quality standard of care and radiation dose reduction techniq ues were employed. CTDIvol: 15.2 - 16.5 mGy. DLP: 545 mGy-cm. . LIMITATIONS: None. FINDINGS: LUNGS AND PLEURA: Diffuse interstitial edema with interlobular septal thickening. No effu sions. AORTA AND GREAT VESSELS: No aneurysm. HEART: No pericardial effusion. Cardiomegaly. PULMONARY ARTERIES: No emboli visualized in the main pulmonary arteries or the segmental branches. HILAR AND MEDIASTINAL STRUCTURES: No identified masses or abnormal nodes. HARDWARE: None in the chest. UPPER ABDOMEN: No significant findings. Limited exam. THYROID AND OTHER SOFT TISSUES: No masses. No adenopathy. BONES: No acute or significant finding. 3D MIPS: Confirm above findings. OTHER: No other significant finding. IMPRESSION: Pulmonary edema. No PE. COMMENT: Quality ID # [id number]: Final reports with documentation of one or more dose reduction techniques (e.g., Automated exposure control, adjustment of the mA and/or kV according to patient size, use of iterative reconstruction technique) TECHNICAL DOCUMENTATION: JOB ID: [id number] [employer]- All Rights Reserved Reading location - IP/workstation name: [email or web address]
[2017-11-15] MEDS ORDERED: AZITHROMYCIN INJ 500 MG VIAL IV ONE (15:10)
[2017-11-15] MEDS ORDERED: ONDANSETRON HCL INJ/PF 4 MG/2 ML SDV IV ONE (15:11)
[2017-11-15] MEDS ORDERED: FUROSEMIDE INJ/PF 20 MG/2 ML SDV IV ONE (15:11)
[2017-11-15] MEDS ORDERED: NITROGLYCERIN 2% OINTMENT 1 GM PACKET TP ONE (15:23)
[2017-11-15] MEDS ORDERED: PROMETHAZINE HCL INJ 25 MG/1 ML VIAL IV PRN (15:54)
[2017-11-15] MEDS ORDERED: MAGNESIUM HYDROXIDE SUSP 30 ML UDCUP PO PRN (15:54)
[2017-11-15] MEDS ORDERED: MAG HYDROX/AL HYDROX/SIMETH SUSP 30 ML UDCUP PO PRN (15:54)
[2017-11-15] MEDS ORDERED: ACETAMINOPHEN 325 MG TABLET PO PRN (15:54)
--- NOTE | 2017-11-15 16:28 | PDOC H&P ---
History of Present Illness Admission Date/PCP: 11/15/17 15:38 TOÑO RICE MD Patient complains of: Shortness of breath History of Present Illness: WILLIE RUBI is a 62 year old male with a past medical history of COPD, CHF, [place] with stents x2, hyperlipidemia, chronic back pain with neuropathy who presented to the emergency department today with a complaint of shortness of breath. The patient states that he is unable to ambulate more than a few feet without becoming severely dyspneic. He states that he felt well until this morning when he experienced a sudden worsening of his breathing. He reports chest wall pain associated with deep breathing or cough. He complains of a nonproductive cough and sore throat. He denies fever, chills, chest pain, palpitations, orthopnea, abdominal pain, vomiting and diarrhea. He does endorse nausea since arrival to the emergency department. He also reports bilateral lower leg edema which is slightly improved from baseline. Evaluation in the emergency department reveals mild leukocytosis with a white count of 11.4, baseline anemia with hemoglobin of 11.3, and pulmonary edema by chest x-ray and CTA. He is found to be afebrile, heart rate, tachypneic with a rate of 25, and hypoxic with oxygen saturations declining to the mid 60s with ambulation while on room air. He is referred to the hospitalist service for admission and management of COPD and CHF exacerbation. Past Medical History Cardiac Medical History: Reports: Congestive Heart Failure, Coronary Artery Disease, Myocardial Infarction Denies: Atrial Fibrillation, Hyperlipidema, Hypertension, Peripheral Vascular Disease, Pulmonary Embolism, Heart Murmur Pulmonary Medical History: Reports: Chronic Obstructive Pulmonary Disease (COPD) , Pneumonia Denies: Asthma, Bronchitis, Respiratory Failure, Sleep Apnea, Tuberculosis Neurological Medical History: Denies: Seizures Endocrine Medical History: Denies: Diabetes Mellitus Type 1, Diabetes Mellitus Type 2, Hyperthyroidism, Hypothyroidism Renal/ Medical History: Denies: End Stage Renal Disease Malignancy Medical History: Denies: Breast Cancer, Cervical Cancer, Leukemia, Lung Cancer, Ovarian Cancer GI Medical History: Reports: Gastroesophageal Reflux Disease Denies: Crohn's Disease, Hiatal Hernia Musculoskeltal Medical History: Denies: Arthritis, Fibromyalgia Psychiatric Medical History: Reports: Post Traumatic Stress Disorder Denies: Bipolar Disorder, Dementia, Depression Hematology: Reports: Anemia - currently Denies: Hemophilia, Sickle Cell Disease Infectious Medical History: Denies: HIV Past Surgical History Past Surgical History: Reports: Appendectomy - 2003, Cardiac Catheterization - stents x 2, Cholecystectomy - 2009, Gastric Bypass Surgery - (x2) surgery to repair Denies: Colostomy, Coronary Artery Bypass Graft, Herniorrhaphy, Pacemaker, Tonsillectomy Social History Information Source: Patient Lives with: Family Smoking Status: Former Smoker Cigarettes Packs Per Day: 0.5 Number of Years Smokin Last Time Smoked: 3 weeks ago Frequency of Alcohol Use: None Hx Recreational Drug Use: No Drugs: None Hx Prescription Drug Abuse: No - Advance Directive Resuscitation Status: Full Code Surrogate healthcare decision maker:: The patient's , Nikole Rubi, Family History Family History: Reviewed & Not Pertinent, Hypertension Parental Family History Reviewed: Yes Children Family History Reviewed: Yes Sibling(s) Family History Reviewed.: Yes Medication/Allergy Home Medications: Atorvastatin Calcium 40 mg PO QHS 10/05/14 Furosemide [Lasix 40 mg Tablet] 40 mg PO DAILY 10/05/14 Pantoprazole Sodium [Protonix] 40 mg PO BID 10/05/14 Oxycodone HCl [Oxycontin] 30 mg PO Q12 02/05/16 Fluoxetine HCl [Prozac] 40 mg PO DAILY 11/04/17 Melatonin [Melatonin 5 mg Tablet] 5 mg PO QHS 11/04/17 Gabapentin [Neurontin 400 mg Capsule] 400 mg PO Q6 11/05/17 Iron Aspgly,Ps/C/B12/FA/Ca/Suc [Ferrex 150 Forte Plus Capsule] 1 each PO DAILY 11/05/17 Oxycodone HCl [Oxy-Ir 5 mg Tablet] 10 mg PO Q6HP PRN 11/05/17 Azithromycin [Zithromax 250 mg Tablet] 500 mg PO DAILY #6 tablet 11/07/17 Fluticasone/Salmeterol [Advair 500-50 Diskus 14 Dose/Diskus] 1 inh IH Q12 #60 inhaler 11/07/17 Guaifenesin [Mucinex Sr 600 mg Tablet.sa] 600 mg PO Q12 #30 tablet.sa 11/07/17 Prednisone [Deltasone 20 mg Tablet] 20 mg PO DAILY #5 tablet 11/07/17 Tiotropium [place] [Spiriva Handihaler 5 Cap/Kit (18 Mcg/Cap)] 1 cap IH QHS #30 kit 11/07/17 Allergies/Adverse Reactions: No Known Allergies Allergy (Verified 11/04/17 10:24) Review of Systems Constitutional: ABSENT: chills, fever(s), headache(s), weight gain, weight loss Eyes: ABSENT: visual disturbances Ears: ABSENT: hearing changes Nose, Mouth, and Throat: PRESENT: sore throat Cardiovascular: PRESENT: chest pain - chest wall w/ breathing, dyspnea on exertion, edema. ABSENT: orthropnea, palpitations Respiratory: PRESENT: cough, dyspnea, sputum. ABSENT: hemoptysis Gastrointestinal: PRESENT: nausea. ABSENT: abdominal pain, constipation, diarrhea, hematemesis, hematochezia, vomiting Genitourinary: ABSENT: dysuria, hematuria Musculoskeletal: PRESENT: back pain - chronic. ABSENT: joint swelling Integumentary: ABSENT: rash, wounds Neurological: ABSENT: abnormal gait, abnormal speech, confusion, dizziness, focal weakness, syncope Psychiatric: ABSENT: anxiety, depression, homidical ideation, suicidal ideation Endocrine: ABSENT: cold intolerance, heat intolerance, polydipsia, polyuria Hematologic/Lymphatic: ABSENT: easy bleeding, easy bruising Physical Exam Vital Signs: Temp Pulse Resp BP Pulse Ox 19 108/67 89 L 11/15/17 14:00 11/15/17 13:34 11/15/17 14:00 General appearance: PRESENT: cooperative, mild distress, well-developed, well- nourished Head exam: PRESENT: atraumatic, normocephalic Eye exam: PRESENT: conjunctiva pink, EOMI, PERRLA. ABSENT: scleral icterus Ear exam: PRESENT: normal external ear exam Mouth exam: PRESENT: moist, tongue midline Neck exam: ABSENT: carotid bruit, JVD, lymphadenopathy, thyromegaly Respiratory exam: PRESENT: crackles, prolonged expiratory phas, rhonchi, symmetrical, tachypnea, wheezes. ABSENT: rales Cardiovascular exam: PRESENT: RRR, +S1, +S2. ABSENT: diastolic murmur, rubs, systolic murmur Pulses: PRESENT: normal dorsalis pedis pul Vascular exam: PRESENT: normal capillary refill GI/Abdominal exam: PRESENT: normal bowel sounds, soft. ABSENT: distended, guarding, mass, organolmegaly, rebound, tenderness Rectal exam: PRESENT: deferred Extremities exam: PRESENT: full ROM. ABSENT: calf tenderness, clubbing, pedal edema Neurological exam: PRESENT: alert, awake, oriented to person, oriented to place , oriented to time, oriented to situation, CN II-XII grossly intact. ABSENT: motor sensory deficit Psychiatric exam: PRESENT: appropriate affect, normal mood. ABSENT: homicidal ideation, suicidal ideation Skin exam: PRESENT: dry, intact, warm. ABSENT: cyanosis, rash Results Impressions: Chest X-Ray 11/15/17 12:34 IMPRESSION: Chronic interstitial changes. Cannot exclude a component of pulmonary edema. Clinical correlation is needed. Chest/Abdomen CTA 11/15/17 13:17 IMPRESSION: Pulmonary edema. No PE. Assessment & Plan - Diagnosis (1) COPD exacerbation Is this a current diagnosis for this admission?: Yes Plan: The patient presents with sudden onset dyspnea on exertion. He was found to be hypoxic with room air saturation of 70% by EMS. While in the emergency department he was noted to desaturate to 60% while ambulating. Of note, the patient was recently discharged from our facility after being admitted for COPD exacerbation. Chest x-ray reveals chronic interstitial changes and pulmonary edema. CTA of the chest demonstrates diffuse pulmonary edema but is negative for pulmonary embolus. The patient is admitted to [facility] on continuous cardiac telemetry. He is provided supplemental oxygen as needed to maintain oxygen saturations greater than 88%. BiPAP nightly and as needed. We will provide scheduled and as needed nebulizer treatments. He is placed on IV Solu-Medrol. He is placed on Mucinex twice daily. Flutter valve to bedside. (2) CHF (congestive heart failure) Qualifiers: Heart failure type: diastolic Heart failure chronicity: acute on chronic Qualified Code(s): I50.33 - Acute on chronic diastolic (congestive) heart failure Is this a current diagnosis for this admission?: Yes Plan: The patient presents in acute hypoxemic respiratory failure with evidence of pulmonary edema on chest x-ray and CTA. He is noted to have crackles on exam, he is found to have bilateral crackles. ProBNP is 753. Echocardiogram (11/05/17) demonstrated a normal LVEF, mild diastolic dysfunction , and mild pulmonary hypertension. Will place patient on cardiac diet. Will monitor daily weights and strict I&Os. The patient is initiated on IV furosemide for diuresis. The patient does not appear to be on CRISTA/ARB or Betablocker. He has a soft blood pressure at this time (108/67); will monitor closely and initiate appropriate antihypertensive medication if blood pressure will tolerate. (3) Acute hypoxemic respiratory failure Is this a current diagnosis for this admission?: Yes Plan: Secondary to #1 and #2; plan as above. (4) Chronic back pain Is this a current diagnosis for this admission?: Yes Plan: On chronic narcotic medication; will continue his home medication regimen of Oxycontin 30 mg every 12 hours and oxycodone 5mg for breakthrough pain once reconciled by pharmacy. - Time Time Spent: 50 to 70 Minutes Medications reviewed and adjusted accordingly: Yes Anticipated discharge: Home - Inpatient Certification Based on my medical assessment, after consideration of the patient's comorbidities, presenting symptoms, or acuity I expect that the services needed warrant INPATIENT care.: Yes I certify that my determination is in accordance with my understanding of Medicare's requirements for reasonable and necessary INPATIENT services [42 CFR 412.3e].: Yes Medical Necessity: Need Close Monitoring Due to Risk of Patient Decompensation, Need for Nebulizer Therapy and Monitoring of Response
[2017-11-15] MEDS: FUROSEMIDE INJ/PF 20 MG/2 ML SDV IV SCH (18:03)
[2017-11-15] MEDS: GABAPENTIN 400 MG CAPSULE PO SCH ×2 (18:03→23:26)
[2017-11-15] MEDS: IPRATROPIUM/ALBUTEROL 0.5-2.5 MG/3 ML AMPUL NEB SCH (20:02)
[2017-11-15] MEDS: OXYCODONE HCL IR 5 MG TABLET PO PRN (20:48)
[2017-11-15] MEDS: ATORVASTATIN CALCIUM 40 MG TABLET PO SCH (22:09)
[2017-11-15] MEDS: GUAIFENESIN 600 MG TABLET.SA PO SCH (22:09)
[2017-11-15] MEDS: FAMOTIDINE 20 MG TABLET PO SCH (22:09)
[2017-11-15] MEDS: MELATONIN 5 MG TABLET PO SCH (22:10)
[2017-11-15] MEDS: OXYCODONE HCL SR 10 MG TABLET PO SCH (22:10)
[2017-11-15] MEDS: METHYLPREDNISOLONE INJ 40 MG/1 ML SDV IV SCH (22:13)
[2017-11-15] MEDS: HEPARIN SOD (PORCINE) 5,000 UNIT/ML 1 ML SYRINGE SUBCUT SCH (22:13)
[2017-11-16] MEDS: ZOLPIDEM TARTRATE 5 MG TABLET PO PRN ×2 (00:04→21:55)
[2017-11-16] MEDS: IPRATROPIUM/ALBUTEROL 0.5-2.5 MG/3 ML AMPUL NEB SCH ×4 (01:26→20:21)
[2017-11-16] MEDS: GABAPENTIN 400 MG CAPSULE PO SCH ×4 (05:34→23:30)
[2017-11-16] MEDS: OXYCODONE HCL IR 5 MG TABLET PO PRN ×2 (05:34→13:56)
[2017-11-16] MEDS: HEPARIN SOD (PORCINE) 5,000 UNIT/ML 1 ML SYRINGE SUBCUT SCH ×3 (05:35→21:55)
[2017-11-16] MEDS: METHYLPREDNISOLONE INJ 40 MG/1 ML SDV IV SCH ×3 (05:35→21:55)
[2017-11-16 06:15] LABS: ABSOLUTE LYMPHOCYTES (AUTO) 0.5 10^3/uL (0.5-4.7); ABSOLUTE MONOCYTES (AUTO) 0.2 10^3/uL (0.1-1.4); ABSOLUTE NEUT (AUTO) 6.1 10^3/uL (1.7-8.2); BASOPHILS % (AUTO) 0.4 % (0-2); HEMATOCRIT 33.1 % (37.9-51.0); HEMOGLOBIN 11.1 g/dL (13.5-17.0); LYMPHOCYTES % (AUTO) 7.4 % (13-45); MEAN CORPUSCULAR HEMOGLOBIN 28.5 pg (27.0-33.4); MEAN CORPUSCULAR HGB CONC 33.6 g/dL (32.0-36.0); MEAN CORPUSCULAR VOLUME 85 fl (80-97); MONOCYTES % (AUTO) 2.2 % (3-13); PLATELET COUNT 255 10^3/uL (150-450); RED CELL DISTRIBUTION WIDTH 15.8 % (11.5-14.0); TOTAL CELLS COUNTED % (AUTO) 100 %; WHITE BLOOD COUNT 6.8 10^3/uL (4.0-10.5)
[2017-11-16 07:15] LABS: ANION GAP 15 (5-19); BLOOD UREA NITROGEN 11 mg/dL (7-20); CALCIUM 8.7 mg/dL (8.4-10.2); CARBON DIOXIDE 29 mmol/L (22-30); CHLORIDE 98 mmol/L (98-107); GLUCOSE 133 mg/dL (75-110); POTASSIUM 4.8 mmol/L (3.6-5.0); SODIUM 141.7 mmol/L (137-145)
[2017-11-16] MEDS: ONDANSETRON HCL INJ/PF 4 MG/2 ML SDV IV PRN ×2 (08:39→22:57)
[2017-11-16] MEDS ORDERED: PROMETHAZINE HCL 25 MG TABLET PO PRN (08:56)
[2017-11-16] MEDS: OXYCODONE HCL SR 10 MG TABLET PO SCH ×2 (09:52→21:55)
[2017-11-16] MEDS: FAMOTIDINE 20 MG TABLET PO SCH ×2 (09:52→21:55)
[2017-11-16] MEDS: GUAIFENESIN 600 MG TABLET.SA PO SCH ×2 (09:52→21:55)
[2017-11-16] MEDS: DOCUSATE SODIUM 100 MG CAPSULE PO SCH (09:53)
[2017-11-16] MEDS: FLUOXETINE HCL 20 MG CAPSULE PO SCH (09:54)
[2017-11-16] MEDS: FUROSEMIDE INJ/PF 20 MG/2 ML SDV IV SCH (09:55)
[2017-11-16] MEDS: AZITHROMYCIN 500 MG in DEXTROSE 5%-WATER 250 ML IV SCH (09:56)
[2017-11-16] MEDS ORDERED: VENLAFAXINE HCL 37.5 MG CAP.SR.24H PO SCH (10:00)
--- NOTE | 2017-11-16 12:44 | PDOC PROGRESS REPORT ---
Subjective Progress Note for:: 11/16/17 Subjective:: The patient is a 62-year-old male with a past medical history of COPD, CHF, [place] with stents, hyperlipidemia, chronic back pain with neuropathy who is opiate dependent with continuous use and admitted to the hospital on 11/15/17 for acute hypoxic respiratory failure secondary to COPD exacerbation. The patient is seen on morning rounds. He is found resting in bed comfortably on supplemental oxygen via nasal cannula; the patient is not home O2 dependent. He states that he is feeling better today, however, remains dyspneic with minimal exertion. He wore the BiPAP overnight and felt that it was greatly beneficial. He does continue to have a productive cough. He denies fever or chills, chest pain, palpitations, abdominal pain, nausea vomiting and diarrhea. He has no new questions or concerns today. Reason For Visit: ACUTE RESPIRATORY FAILURE WITH HYPOXIA Physical Exam Vital Signs: Temp Pulse Resp BP Pulse Ox 98.4 F 71 20 99/61 L 90 L 11/16/17 10:47 11/16/17 10:47 11/16/17 10:47 11/16/17 10:47 11/16/17 10:47 Intake & Output 11/15/17 11/16/17 11/17/17 06:59 06:59 06:59 Intake Total 125 450 Output Total 1550 350 Balance -1425 100 Weight 80.4 kg General appearance: PRESENT: no acute distress, cooperative, well-developed, well-nourished Head exam: PRESENT: atraumatic, normocephalic Eye exam: PRESENT: conjunctiva pink, EOMI, PERRLA. ABSENT: scleral icterus Ear exam: PRESENT: normal external ear exam Mouth exam: PRESENT: moist, tongue midline Neck exam: ABSENT: carotid bruit, JVD, lymphadenopathy, thyromegaly Respiratory exam: PRESENT: crackles - Bibasilar, decreased breath sounds, symmetrical, unlabored, wheezes. ABSENT: rales Cardiovascular exam: PRESENT: RRR, +S1, +S2. ABSENT: diastolic murmur, rubs, systolic murmur Pulses: PRESENT: normal dorsalis pedis pul Vascular exam: PRESENT: normal capillary refill GI/Abdominal exam: PRESENT: normal bowel sounds, soft. ABSENT: distended, guarding, mass, organolmegaly, rebound, tenderness Rectal exam: PRESENT: deferred Extremities exam: PRESENT: full ROM. ABSENT: calf tenderness, clubbing, pedal edema Neurological exam: PRESENT: alert, awake, oriented to person, oriented to place , oriented to time, oriented to situation, CN II-XII grossly intact. ABSENT: motor sensory deficit Psychiatric exam: PRESENT: appropriate affect, normal mood. ABSENT: homicidal ideation, suicidal ideation Skin exam: PRESENT: dry, intact, warm. ABSENT: cyanosis, rash Results Laboratory Results: 11/16/17 05:49 11/16/17 05:49 11/16/17 11/16/17 05:49 05:49 WBC 6.8 RBC 3.90 L Hgb 11.1 L Hct 33.1 L MCV 85 MCH 28.5 MCHC 33.6 RDW 15.8 H Plt Count 255 Seg Neutrophils % 90.0 H Lymphocytes % 7.4 L Monocytes % 2.2 L Eosinophils % 0.0 Basophils % 0.4 Absolute Neutrophils 6.1 Absolute Lymphocytes 0.5 Absolute Monocytes 0.2 Absolute Eosinophils 0.0 Absolute Basophils 0.0 Sodium 141.7 Potassium 4.8 Chloride 98 Carbon Dioxide 29 Anion Gap 15 BUN 11 Creatinine 0.75 Est GFR ( Amer) > 60 Est GFR (Non-Af Amer) > 60 Glucose 133 H Calcium 8.7 Impressions: Chest X-Ray 11/15/17 12:34 IMPRESSION: Chronic interstitial changes. Cannot exclude a component of pulmonary edema. Clinical correlation is needed. Chest/Abdomen CTA 11/15/17 13:17 IMPRESSION: Pulmonary edema. No PE. Assessment & Plan - Diagnosis (1) COPD exacerbation Is this a current diagnosis for this admission?: Yes Plan: Unchanged; patient remains hypoxic on supplemental oxygen (90% on 4 L/min; requires BiPAP). Of note, the patient was recently discharged from our facility after being admitted for COPD exacerbation. Chest x-ray reveals chronic interstitial changes and pulmonary edema. CTA of the chest demonstrates diffuse pulmonary edema but is negative for pulmonary embolus. The patient is admitted to [facility] on continuous cardiac telemetry. He is provided supplemental oxygen as needed to maintain oxygen saturations greater than 88%. BiPAP nightly and as needed. We will provide scheduled and as needed nebulizer treatments. He is placed on IV Solu-Medrol. He is placed on Mucinex twice daily. Flutter valve to bedside. (2) Acute bronchitis Qualifiers: Bronchitis organism: unspecified organism Qualified Code(s): J20.9 - Acute bronchitis, unspecified Is this a current diagnosis for this admission?: Yes Plan: The patient was admitted with a COPD exacerbation, white count of 11.4, tachypnea, hypoxia on room air to mid 70s, dyspnea at rest, and increased purulent sputum production. Chest x-ray revealed pulmonary edema. Blood and sputum cultures are pending. The patient was empirically placed on IV azithromycin. Will adjust as culture and sensitivity results become available. Remaining plan as above. (3) CHF (congestive heart failure) Qualifiers: Heart failure type: diastolic Heart failure chronicity: acute on chronic Qualified Code(s): I50.33 - Acute on chronic diastolic (congestive) heart failure Is this a current diagnosis for this admission?: Yes Plan: The patient presents in acute hypoxemic respiratory failure with evidence of pulmonary edema on chest x-ray and CTA. He continues to have bibasilar crackles and bilateral lower extremity edema on exam today. ProBNP is 753. Echocardiogram (11/05/17) demonstrated a normal LVEF, mild diastolic dysfunction , and mild pulmonary hypertension. Will place patient on cardiac diet. Will monitor daily weights and strict I&Os. The patient was initiated on IV furosemide for diuresis yesterday with 1.4 L urinary output that correlates well with a 1.2 kg decrease in weight. The patient is now hypotensive, will hold IV diuresis today. We will obtain repeat chest x-ray to evaluate for improved aeration following diuresis. The patient does have a history of hypertension, however has been hypotensive since admission, will monitor closely and consider initiation of CRISTA/ARB or potentially Entresto. Consider cardiology referral. (4) Acute hypoxemic respiratory failure Is this a current diagnosis for this admission?: Yes Plan: Secondary to #1 and #2; plan as above. (5) Chronic back pain Is this a current diagnosis for this admission?: Yes Plan: Continue the patient's home medication regimen for pain; gabapentin, oxycodone, OxyContin. (6) Chronic nausea Is this a current diagnosis for this admission?: Yes Plan: Chronic nausea; likely related to opiate use, without emesis. We will continue the patient's home dose of promethazine. Zofran as needed. (7) GERD (gastroesophageal reflux disease) Qualifiers: Esophagitis presence: without esophagitis Qualified Code(s): K21.9 - Gastro -esophageal reflux disease without esophagitis Is this a current diagnosis for this admission?: Yes Plan: Continue PPI therapy. (8) Depression Is this a current diagnosis for this admission?: Yes Plan: Continue home dose Prozac. - Time Time Spent with patient: 25-34 minutes Medications reviewed and adjusted accordingly: Yes Anticipated discharge: Home - Inpatient Certification Based on my medical assessment, after consideration of the patient's comorbidities, presenting symptoms, or acuity I expect that the services needed warrant INPATIENT care.: Yes I certify that my determination is in accordance with my understanding of Medicare's requirements for reasonable and necessary INPATIENT services [42 CFR 412.3e].: Yes Medical Necessity: Need Close Monitoring Due to Risk of Patient Decompensation, Need For Continuous Telemetry Monitoring, Need for Nebulizer Therapy and Monitoring of Response
--- NOTE | 2017-11-16 14:23 | RADIOLOGY REPORT (SQ) ---
EXAM DESCRIPTION: CHEST SINGLE VIEW COMPLETED DATE/TIME: 11/16/2017 12:58 pm REASON FOR STUDY: dyspnea, hypoxia COMPARISON: 11/15/2017. EXAM PARAMETERS: NUMBER OF VIEWS: One view. TECHNIQUE: Single frontal radiographic view of the chest acquired. RADIATION DOSE: NA LIMITATIONS: None. FINDINGS: LUNGS AND PLEURA: Diffuse interstitial pattern. Improved aeration in the lung bases the l ower for differences in technique. No effusions. MEDIASTINUM AND HILAR STRUCTURES: Stable. HEART AND VASCULAR STRUCTURES: Stable heart size. BONES: No acute findings. HARDWARE: None in the chest. OTHER: No other significant finding. IMPRESSION: Improved aeration since yesterday. TECHNICAL DOCUMENTATION: JOB ID: [id number] [employer]- All Rights Reserved Reading location - IP/workstation name: Unknown
[2017-11-16] MEDS: ALPRAZOLAM 0.25 MG TABLET PO PRN (17:21)
[2017-11-16] MEDS: LEVALBUTEROL HCL NEB 1.25 MG/3 ML AMPUL NEB PRN (17:25)
[2017-11-16] MEDS: ATORVASTATIN CALCIUM 40 MG TABLET PO SCH (21:55)
[2017-11-16] MEDS: MELATONIN 5 MG TABLET PO SCH (21:56)
[2017-11-16] MEDS ORDERED: GUAIFENESIN 600 MG TABLET.SA PO ONE (23:00)
[2017-11-16] MEDS ORDERED: OXYCODONE HCL SR 10 MG TABLET PO ONE (23:15)
[2017-11-16] MEDS ORDERED: ATORVASTATIN CALCIUM 40 MG TABLET PO ONE (23:15)
[2017-11-16] MEDS ORDERED: ZOLPIDEM TARTRATE 5 MG TABLET PO ONE (23:15)
[2017-11-16] MEDS ORDERED: FAMOTIDINE 20 MG TABLET PO ONE (23:15)
[2017-11-17] MEDS: IPRATROPIUM/ALBUTEROL 0.5-2.5 MG/3 ML AMPUL NEB SCH ×4 (02:04→23:40)
[2017-11-17 05:07] LABS: ABSOLUTE BASOPHILS # (AUTO) 0.1 10^3/uL (0.0-0.2); ABSOLUTE LYMPHOCYTES (AUTO) 0.6 10^3/uL (0.5-4.7); ABSOLUTE MONOCYTES (AUTO) 0.3 10^3/uL (0.1-1.4); ABSOLUTE NEUT (AUTO) 10.3 10^3/uL (1.7-8.2); BASOPHILS % (AUTO) 0.5 % (0-2); HEMATOCRIT 31.5 % (37.9-51.0); HEMOGLOBIN 10.4 g/dL (13.5-17.0); LYMPHOCYTES % (AUTO) 5.2 % (13-45); MEAN CORPUSCULAR VOLUME 85 fl (80-97); PLATELET COUNT 268 10^3/uL (150-450); RED BLOOD COUNT 3.72 10^6/uL (4.35-5.55); RED CELL DISTRIBUTION WIDTH 15.5 % (11.5-14.0); SEGMENTED NEUTROPHILS % (AUTO) 91.3 % (42-78); TOTAL CELLS COUNTED % (AUTO) 100 %; WHITE BLOOD COUNT 11.3 10^3/uL (4.0-10.5)
[2017-11-17 05:30] LABS: ANION GAP 12 (5-19); BLOOD UREA NITROGEN 15 mg/dL (7-20); CALCIUM 8.4 mg/dL (8.4-10.2); CARBON DIOXIDE 28 mmol/L (22-30); CHLORIDE 100 mmol/L (98-107); GLUCOSE 123 mg/dL (75-110); POTASSIUM 4.1 mmol/L (3.6-5.0); SODIUM 140.1 mmol/L (137-145)
[2017-11-17] MEDS: METHYLPREDNISOLONE INJ 40 MG/1 ML SDV IV SCH ×2 (05:44→22:23)
[2017-11-17] MEDS: GABAPENTIN 400 MG CAPSULE PO SCH ×4 (05:44→23:55)
[2017-11-17] MEDS: HEPARIN SOD (PORCINE) 5,000 UNIT/ML 1 ML SYRINGE SUBCUT SCH ×3 (05:44→22:23)
[2017-11-17] MEDS: OXYCODONE HCL IR 5 MG TABLET PO PRN (05:45)
[2017-11-17] MEDS: ALPRAZOLAM 0.25 MG TABLET PO PRN (09:32)
[2017-11-17] MEDS: FLUOXETINE HCL 20 MG CAPSULE PO SCH (09:32)
[2017-11-17] MEDS: OXYCODONE HCL SR 10 MG TABLET PO SCH ×2 (09:33→22:23)
[2017-11-17] MEDS: DOCUSATE SODIUM 100 MG CAPSULE PO SCH (09:33)
[2017-11-17] MEDS: GUAIFENESIN 600 MG TABLET.SA PO SCH ×2 (09:33→22:23)
[2017-11-17] MEDS: FAMOTIDINE 20 MG TABLET PO SCH ×2 (09:33→22:23)
[2017-11-17] MEDS: AZITHROMYCIN 500 MG in DEXTROSE 5%-WATER 250 ML IV SCH (09:36)
[2017-11-17] MEDS ORDERED: OXYCODONE HCL SR 10 MG TABLET PO SCH (10:00)
[2017-11-17] MEDS ORDERED: GUAIFENESIN 600 MG TABLET.SA PO SCH (10:00)
--- NOTE | 2017-11-17 10:19 | PDOC PROGRESS REPORT ---
Subjective Progress Note for:: 11/17/17 Subjective:: The patient is a 62-year-old male with a past medical history of COPD, CHF, [place] with stents, hyperlipidemia, chronic back pain with neuropathy who is opiate dependent with continuous use and admitted to the hospital on 11/15/17 for acute hypoxic respiratory failure secondary to COPD exacerbation. The patient is seen on morning rounds. He is found resting in bed comfortably on supplemental oxygen via nasal cannula at 3 L/min; the patient is not home O2 dependent. While in the room, his oxygen is held and he is noted to desat to 86 % on room air while at rest. He states that he is feeling much better today. He reports that he continues to feel shortness of breath with minimal activity, however, he recovers quickly with rest. He states that the BiPAP is extremely beneficial as he has not experienced any orthopnea. He is also very pleased that his bilateral lower leg edema has resolved. He requests that his home dose Lasix be adjusted at time of discharge to provide better control. He states that this is the first time his legs have not been edematous "as long as I can remember." He does ask that his as needed oxycodone be adjusted to a scheduled medication stating that he takes it on a schedule at home. He has no other questions or concerns today. Reason For Visit: ACUTE RESPIRATORY FAILURE WITH HYPOXIA Physical Exam Vital Signs: Temp Pulse Resp BP Pulse Ox 97.9 F 61 16 113/64 99 11/17/17 07:33 11/17/17 08:31 11/17/17 08:31 11/17/17 07:33 11/17/17 08:31 Intake & Output 11/16/17 11/17/17 11/18/17 06:59 06:59 06:59 Intake Total 125 1805 Output Total 1550 1350 Balance -1425 455 Weight 80.4 kg 80.4 kg General appearance: PRESENT: no acute distress, well-developed, well-nourished, other - overweight Head exam: PRESENT: atraumatic, normocephalic Eye exam: PRESENT: conjunctiva pink, EOMI, PERRLA. ABSENT: scleral icterus Ear exam: PRESENT: normal external ear exam Mouth exam: PRESENT: moist, tongue midline Neck exam: ABSENT: carotid bruit, JVD, lymphadenopathy, thyromegaly Respiratory exam: PRESENT: rhonchi, symmetrical, unlabored - speaking full sentences, wheezes - LLL, other - Continues to require supplemental oxygen via nasal cannula. ABSENT: rales Cardiovascular exam: PRESENT: RRR, +S1, +S2. ABSENT: diastolic murmur, rubs, systolic murmur Pulses: PRESENT: normal dorsalis pedis pul Vascular exam: PRESENT: normal capillary refill GI/Abdominal exam: PRESENT: normal bowel sounds, soft. ABSENT: distended, guarding, mass, organolmegaly, rebound, tenderness Rectal exam: PRESENT: deferred Extremities exam: PRESENT: full ROM. ABSENT: calf tenderness, clubbing, pedal edema, +1 edema Neurological exam: PRESENT: alert, awake, oriented to person, oriented to place , oriented to time, oriented to situation, CN II-XII grossly intact. ABSENT: motor sensory deficit Psychiatric exam: PRESENT: appropriate affect, normal mood. ABSENT: homicidal ideation, suicidal ideation Skin exam: PRESENT: dry, intact, warm. ABSENT: cyanosis, rash Results Laboratory Results: 11/17/17 04:27 11/17/17 04:27 11/17/17 11/17/17 04:27 04:27 WBC 11.3 H RBC 3.72 L Hgb 10.4 L Hct 31.5 L MCV 85 MCH 28.0 MCHC 33.0 RDW 15.5 H Plt Count 268 Seg Neutrophils % 91.3 H Lymphocytes % 5.2 L Monocytes % 3.0 Eosinophils % 0.0 Basophils % 0.5 Absolute Neutrophils 10.3 H Absolute Lymphocytes 0.6 Absolute Monocytes 0.3 Absolute Eosinophils 0.0 Absolute Basophils 0.1 Sodium 140.1 Potassium 4.1 Chloride 100 Carbon Dioxide 28 Anion Gap 12 BUN 15 Creatinine 0.72 Est GFR ( Amer) > 60 Est GFR (Non-Af Amer) > 60 Glucose 123 H Calcium 8.4 11/17/17 04:27 NT-Pro-B Natriuret Pep 415 Impressions: Chest/Abdomen CTA 11/15/17 13:17 IMPRESSION: Pulmonary edema. No PE. Chest X-Ray 11/16/17 00:00 IMPRESSION: Improved aeration since yesterday. Assessment & Plan - Diagnosis (1) COPD exacerbation Is this a current diagnosis for this admission?: Yes Plan: Improved; however, patient remains hypoxic on room air (86% at rest). Chest x-ray reveals chronic interstitial changes and pulmonary edema. CTA of the chest demonstrates diffuse pulmonary edema but is negative for pulmonary embolus. Repeat chest x-ray obtained yesterday demonstrates improved aeration. The patient is admitted to [facility] on continuous cardiac telemetry. He is provided supplemental oxygen as needed to maintain oxygen saturations greater than 88%. BiPAP nightly and as needed. We will provide scheduled and as needed nebulizer treatments. He is placed on IV Solu-Medrol; will begin weaning. He is placed on Mucinex twice daily. Flutter valve to bedside. (2) Acute bronchitis Qualifiers: Bronchitis organism: unspecified organism Qualified Code(s): J20.9 - Acute bronchitis, unspecified Is this a current diagnosis for this admission?: Yes Plan: The patient was admitted with a COPD exacerbation, white count of 11.4, tachypnea, hypoxia on room air to mid 70s, dyspnea at rest, and increased purulent sputum production. Chest x-ray revealed pulmonary edema. The x-ray shows improved aeration. Blood cultures have no growth at 24 hours. Sputum cultures are pending. The patient was empirically placed on IV azithromycin. Will adjust as culture and sensitivity results become available. Remaining plan as above. (3) Acute exacerbation of CHF (congestive heart failure) Qualifiers: Heart failure type: diastolic Qualified Code(s): I50.33 - Acute on chronic diastolic (congestive) heart failure Is this a current diagnosis for this admission?: Yes Plan: Improved; improved lung sounds and resolution of BLE +2 pitting edema. Repeat CXR shows improved aeration ProBNP is 753.--> 415 Echocardiogram (11/05/17) demonstrated a normal LVEF, mild diastolic dysfunction , and mild pulmonary hypertension. Will place patient on cardiac diet. Will monitor daily weights and strict I&Os. We will resume p.o. furosemide 40 mg daily (home dose) and 20 mg each afternoon. The patient does have a history of hypertension, however has been hypotensive since admission, will monitor closely and consider initiation of CRISTA/ARB or potentially Entresto. Consider cardiology referral. (4) Acute hypoxemic respiratory failure Is this a current diagnosis for this admission?: Yes Plan: Secondary to #1, #2, #3; plan as above. (5) Chronic back pain Is this a current diagnosis for this admission?: Yes Plan: Continue the patient's home medication regimen for pain; gabapentin, oxycodone, OxyContin. (6) Chronic nausea Is this a current diagnosis for this admission?: Yes Plan: Chronic nausea; likely related to opiate use, without emesis. We will continue the patient's home dose of promethazine. Zofran as needed. (7) GERD (gastroesophageal reflux disease) Qualifiers: Esophagitis presence: without esophagitis Qualified Code(s): K21.9 - Gastro -esophageal reflux disease without esophagitis Is this a current diagnosis for this admission?: Yes Plan: Continue PPI therapy. (8) Depression Is this a current diagnosis for this admission?: Yes Plan: Continue home dose Prozac. - Time Time Spent with patient: 25-34 minutes Medications reviewed and adjusted accordingly: Yes Anticipated discharge: Home Within: within 72 hours
[2017-11-17] MEDS: BENZONATATE 100 MG CAPSULE PO PRN ×2 (11:33→20:33)
[2017-11-17] MEDS: OXYCODONE HCL IR 5 MG TABLET PO SCH ×3 (11:33→23:56)
[2017-11-17] MEDS: FUROSEMIDE 20 MG TABLET PO SCH (13:26)
[2017-11-17] MEDS: BENZOCAINE/MENTHOL SORE THROAT LOZENGE BUCCAL PRN ×2 (19:56→22:23)
[2017-11-17] MEDS: LEVALBUTEROL HCL NEB 1.25 MG/3 ML AMPUL NEB PRN (20:47)
[2017-11-17] MEDS: ATORVASTATIN CALCIUM 40 MG TABLET PO SCH (22:22)
[2017-11-17] MEDS: MELATONIN 5 MG TABLET PO SCH (22:25)
[2017-11-17] MEDS: ZOLPIDEM TARTRATE 5 MG TABLET PO PRN (23:55)
[2017-11-18] MEDS: OXYCODONE HCL IR 5 MG TABLET PO SCH ×4 (05:41→23:13)
[2017-11-18] MEDS: HEPARIN SOD (PORCINE) 5,000 UNIT/ML 1 ML SYRINGE SUBCUT SCH ×3 (05:41→22:08)
[2017-11-18] MEDS: GABAPENTIN 400 MG CAPSULE PO SCH ×4 (05:41→23:13)
[2017-11-18] MEDS: BENZOCAINE/MENTHOL SORE THROAT LOZENGE BUCCAL PRN ×2 (05:42→23:16)
[2017-11-18 06:14] LABS: ABSOLUTE LYMPHOCYTES (AUTO) 0.7 10^3/uL (0.5-4.7); ABSOLUTE MONOCYTES (AUTO) 0.3 10^3/uL (0.1-1.4); ABSOLUTE NEUT (AUTO) 6.6 10^3/uL (1.7-8.2); BASOPHILS % (AUTO) 0.1 % (0-2); HEMATOCRIT 31.8 % (37.9-51.0); HEMOGLOBIN 10.7 g/dL (13.5-17.0); LYMPHOCYTES % (AUTO) 9.4 % (13-45); MEAN CORPUSCULAR HEMOGLOBIN 28.3 pg (27.0-33.4); MEAN CORPUSCULAR HGB CONC 33.6 g/dL (32.0-36.0); MEAN CORPUSCULAR VOLUME 84 fl (80-97); MONOCYTES % (AUTO) 4.3 % (3-13); PLATELET COUNT 268 10^3/uL (150-450); RED BLOOD COUNT 3.78 10^6/uL (4.35-5.55); RED CELL DISTRIBUTION WIDTH 15.6 % (11.5-14.0); SEGMENTED NEUTROPHILS % (AUTO) 86.2 % (42-78); TOTAL CELLS COUNTED % (AUTO) 100 %; WHITE BLOOD COUNT 7.6 10^3/uL (4.0-10.5)
[2017-11-18 06:38] LABS: ANION GAP 11 (5-19); BLOOD UREA NITROGEN 17 mg/dL (7-20); CALCIUM 8.6 mg/dL (8.4-10.2); CARBON DIOXIDE 30 mmol/L (22-30); CHLORIDE 100 mmol/L (98-107); GLUCOSE 107 mg/dL (75-110); POTASSIUM 4.9 mmol/L (3.6-5.0)
[2017-11-18] MEDS ORDERED: KETOROLAC TROMETHAMINE INJ/PF 30 MG/1 ML SDV IV PRN (07:53)
[2017-11-18] MEDS: IPRATROPIUM/ALBUTEROL 0.5-2.5 MG/3 ML AMPUL NEB SCH ×3 (08:36→23:11)
[2017-11-18] MEDS: FUROSEMIDE 40 MG TABLET PO SCH (09:28)
[2017-11-18] MEDS: FLUOXETINE HCL 20 MG CAPSULE PO SCH (09:29)
[2017-11-18] MEDS: GUAIFENESIN 600 MG TABLET.SA PO SCH ×2 (09:29→22:07)
[2017-11-18] MEDS: FAMOTIDINE 20 MG TABLET PO SCH ×2 (09:30→22:08)
[2017-11-18] MEDS: OXYCODONE HCL SR 10 MG TABLET PO SCH ×2 (09:30→22:07)
[2017-11-18] MEDS: DOCUSATE SODIUM 100 MG CAPSULE PO SCH (09:30)
[2017-11-18] MEDS: AZITHROMYCIN 500 MG in DEXTROSE 5%-WATER 250 ML IV SCH (09:31)
[2017-11-18] MEDS: METHYLPREDNISOLONE INJ 40 MG/1 ML SDV IV SCH (09:31)
[2017-11-18] MEDS: LIDOCAINE 5% (700 MG) TRANSDERMAL ADH..PATCH TP SCH (09:33)
[2017-11-18] MEDS ORDERED: CIPROFLOXACIN HCL 750 MG TABLET PO ONE (11:00)
--- NOTE | 2017-11-18 11:47 | PDOC PROGRESS REPORT ---
Subjective Progress Note for:: 11/18/17 Subjective:: The patient is a 62-year-old male with a past medical history of COPD, CHF, [place] with stents, hyperlipidemia, chronic back pain with neuropathy who is opiate dependent with continuous use and admitted to the hospital on 11/15/17 for acute hypoxic respiratory failure secondary to COPD exacerbation. The patient is seen on morning rounds. He is found resting in bed comfortably on supplemental oxygen via nasal cannula at 2 L/min; the patient is not home O2 dependent. He states that he is feeling well today. He reports that he continues to feel shortness of breath with activity. He states he did not require BiPAP overnight. He is very pleased that his bilateral lower leg edema has resolved. He also reports that his pain is better controlled with scheduled medications. He has no other questions or concerns today. Reason For Visit: ACUTE RESPIRATORY FAILURE WITH HYPOXIA Physical Exam Vital Signs: Temp Pulse Resp BP Pulse Ox 98.3 F 68 16 120/57 L 98 11/18/17 07:32 11/18/17 08:36 11/18/17 08:36 11/18/17 07:32 11/18/17 08:36 Intake & Output 11/17/17 11/18/17 11/19/17 06:59 06:59 06:59 Intake Total 1805 1614 Output Total 1350 2700 Balance 455 -1086 Weight 80.4 kg 81.3 kg General appearance: PRESENT: no acute distress, cooperative, well-developed, well-nourished, other - Overweight Head exam: PRESENT: atraumatic, normocephalic Eye exam: PRESENT: conjunctiva pink, EOMI, PERRLA. ABSENT: scleral icterus Ear exam: PRESENT: normal external ear exam Mouth exam: PRESENT: moist, tongue midline Neck exam: ABSENT: carotid bruit, JVD, lymphadenopathy, thyromegaly Respiratory exam: PRESENT: rhonchi - LLL, symmetrical, unlabored, other - Supplemental oxygen via NC. ABSENT: rales, wheezes Cardiovascular exam: PRESENT: RRR, +S1, +S2. ABSENT: diastolic murmur, rubs, systolic murmur Pulses: PRESENT: normal dorsalis pedis pul Vascular exam: PRESENT: normal capillary refill GI/Abdominal exam: PRESENT: normal bowel sounds, soft. ABSENT: distended, guarding, mass, organolmegaly, rebound, tenderness Rectal exam: PRESENT: deferred Extremities exam: PRESENT: full ROM. ABSENT: calf tenderness, clubbing, pedal edema, +1 edema Neurological exam: PRESENT: alert, awake, oriented to person, oriented to place , oriented to time, oriented to situation, CN II-XII grossly intact. ABSENT: motor sensory deficit Psychiatric exam: PRESENT: appropriate affect, normal mood. ABSENT: homicidal ideation, suicidal ideation Skin exam: PRESENT: dry, intact, warm. ABSENT: cyanosis, rash Results Laboratory Results: 11/18/17 05:30 11/18/17 05:30 11/18/17 11/18/17 05:30 05:30 WBC 7.6 RBC 3.78 L Hgb 10.7 L Hct 31.8 L MCV 84 MCH 28.3 MCHC 33.6 RDW 15.6 H Plt Count 268 Seg Neutrophils % 86.2 H Lymphocytes % 9.4 L Monocytes % 4.3 Eosinophils % 0.0 Basophils % 0.1 Absolute Neutrophils 6.6 Absolute Lymphocytes 0.7 Absolute Monocytes 0.3 Absolute Eosinophils 0.0 Absolute Basophils 0.0 Sodium 141.0 Potassium 4.9 Chloride 100 Carbon Dioxide 30 Anion Gap 11 BUN 17 Creatinine 0.79 Est GFR ( Amer) > 60 Est GFR (Non-Af Amer) > 60 Glucose 107 Calcium 8.6 11/17/17 04:27 NT-Pro-B Natriuret Pep 415 Impressions: Chest/Abdomen CTA 11/15/17 13:17 IMPRESSION: Pulmonary edema. No PE. Chest X-Ray 11/16/17 00:00 IMPRESSION: Improved aeration since yesterday. Assessment & Plan - Diagnosis (1) COPD exacerbation Is this a current diagnosis for this admission?: Yes Plan: Improved. Chest x-ray reveals chronic interstitial changes and pulmonary edema. CTA of the chest demonstrates diffuse pulmonary edema but is negative for pulmonary embolus. Repeat chest x-ray demonstrated improved aeration. The patient is admitted to [facility] on continuous cardiac telemetry. He is provided supplemental oxygen as needed to maintain oxygen saturations greater than 88%; will begin attempts to wean oxygen today. BiPAP nightly and as needed. Nebulizer treatments are available as needed. Will transition to p.o. prednisone today. Continue Mucinex twice daily. Flutter valve to bedside. (2) Acute bronchitis Qualifiers: Bronchitis organism: unspecified organism Qualified Code(s): J20.9 - Acute bronchitis, unspecified Is this a current diagnosis for this admission?: Yes Plan: Improved; The patient was admitted with a COPD exacerbation, white count of 11.4 , tachypnea, hypoxia on room air to mid 70s, dyspnea at rest, and increased purulent sputum production. Chest x-ray revealed pulmonary edema. The x-ray shows improved aeration. Blood cultures have no growth at 48 hours. Sputum cultures: mccormick sensitive E. coli. Transition to p.o. Cipro 750 mg BID. Remaining plan as above. (3) Acute exacerbation of CHF (congestive heart failure) Qualifiers: Heart failure type: diastolic Qualified Code(s): I50.33 - Acute on chronic diastolic (congestive) heart failure Is this a current diagnosis for this admission?: Yes Plan: Improved; improved lung sounds and resolution of BLE +2 pitting edema. Repeat CXR shows improved aeration ProBNP is 753.--> 415 Echocardiogram (11/05/17) demonstrated a normal LVEF, mild diastolic dysfunction , and mild pulmonary hypertension. Will place patient on cardiac diet. Will monitor daily weights and strict I&Os. Continue furosemide 40 mg qAM and 20 mg each afternoon. (4) Acute hypoxemic respiratory failure Is this a current diagnosis for this admission?: Yes Plan: Gradual improvements; have begun weaning oxygen and patient is no longer requiring BiPAP. Secondary to #1, #2, #3; plan as above. (5) Chronic back pain Is this a current diagnosis for this admission?: Yes Plan: Continue the patient's home medication regimen for pain; gabapentin, oxycodone, OxyContin. (6) Chronic nausea Is this a current diagnosis for this admission?: Yes Plan: Chronic nausea; likely related to opiate use, without emesis. We will continue the patient's home dose of promethazine. Zofran as needed. (7) GERD (gastroesophageal reflux disease) Qualifiers: Esophagitis presence: without esophagitis Qualified Code(s): K21.9 - Gastro -esophageal reflux disease without esophagitis Is this a current diagnosis for this admission?: Yes Plan: Continue PPI therapy. (8) Depression Is this a current diagnosis for this admission?: Yes Plan: Continue home dose Prozac. - Time Time Spent with patient: 25-34 minutes Medications reviewed and adjusted accordingly: Yes Anticipated discharge: Home Within: within 24 hours, within 48 hours - Plan Summary Plan Summary: Anticipate discharge to home within the next 24-48 hours. Ideally, patient will not require oxygen at discharge; we have begun weaning O2. He has been transitioned to p.o. antibiotics and steroids; will monitor for increased WBCs, fever, or oxygen needs.
[2017-11-18] MEDS: FUROSEMIDE 20 MG TABLET PO SCH (15:12)
[2017-11-18] MEDS: PREDNISONE 20 MG TABLET PO SCH (17:12)
[2017-11-18] MEDS: ALPRAZOLAM 0.25 MG TABLET PO PRN (20:35)
[2017-11-18] MEDS: ZOLPIDEM TARTRATE 5 MG TABLET PO PRN (22:07)
[2017-11-18] MEDS: CIPROFLOXACIN HCL 750 MG TABLET PO SCH (22:08)
[2017-11-18] MEDS: ATORVASTATIN CALCIUM 40 MG TABLET PO SCH (22:08)
[2017-11-18] MEDS: MELATONIN 5 MG TABLET PO SCH (22:09)
[2017-11-19 03:19] VITALS: BP 119/79
[2017-11-19] MEDS: OXYCODONE HCL IR 5 MG TABLET PO SCH (05:27)
[2017-11-19] MEDS: GABAPENTIN 400 MG CAPSULE PO SCH (05:28)
[2017-11-19] MEDS: HEPARIN SOD (PORCINE) 5,000 UNIT/ML 1 ML SYRINGE SUBCUT SCH (05:28)
[2017-11-19 06:16] LABS: HEMOGLOBIN 11.8 g/dL (13.5-17.0); MEAN CORPUSCULAR HEMOGLOBIN 27.9 pg (27.0-33.4); MEAN CORPUSCULAR HGB CONC 32.8 g/dL (32.0-36.0); MEAN CORPUSCULAR VOLUME 85 fl (80-97); PLATELET COUNT 302 10^3/uL (150-450); RED BLOOD COUNT 4.23 10^6/uL (4.35-5.55); RED CELL DISTRIBUTION WIDTH 15.7 % (11.5-14.0); WHITE BLOOD COUNT 8.8 10^3/uL (4.0-10.5)
[2017-11-19] MEDS: IPRATROPIUM/ALBUTEROL 0.5-2.5 MG/3 ML AMPUL NEB SCH (08:30)
[2017-11-19] MEDS: FAMOTIDINE 20 MG TABLET PO SCH (09:21)
[2017-11-19] MEDS: PREDNISONE 20 MG TABLET PO SCH (09:21)
[2017-11-19] MEDS: FUROSEMIDE 40 MG TABLET PO SCH (09:21)
[2017-11-19] MEDS: GUAIFENESIN 600 MG TABLET.SA PO SCH (09:21)
[2017-11-19] MEDS: FLUOXETINE HCL 20 MG CAPSULE PO SCH (09:21)
[2017-11-19] MEDS: LIDOCAINE 5% (700 MG) TRANSDERMAL ADH..PATCH TP SCH (09:22)
[2017-11-19] MEDS: CIPROFLOXACIN HCL 750 MG TABLET PO SCH (09:22)
[2017-11-19] MEDS: DOCUSATE SODIUM 100 MG CAPSULE PO SCH (09:22)
[2017-11-19] MEDS: OXYCODONE HCL SR 10 MG TABLET PO SCH (09:22)
--- NOTE | 2017-11-19 13:14 | PDOC DISCHARGE SUMMARY ---
General - Admit/Disc Date/PCP Admission Date/Primary Care Provider: 11/15/17 15:38 TOÑO RICE MD Discharge Date: 11/19/17 - Discharge Diagnosis (1) COPD exacerbation Is this a current diagnosis for this admission?: Yes Summary: Resolved. Chest x-ray reveals chronic interstitial changes and pulmonary edema. CTA of the chest demonstrates diffuse pulmonary edema but is negative for pulmonary embolus. Repeat chest x-ray demonstrated improved aeration. Blood cultures have no growth at 72 hours. Sputum cultures: mccormick sensitive E. coli. The patient was admitted with acute respiratory failure with hypoxia secondary to COPD exacerbation evidenced by dyspnea, tachycardia, tachypnea, and oxygen saturations to the mid 60s on room air while ambulating. He was admitted to [facility] on continuous cardiac telemetry and supported with supplemental oxygen, BiPAP, scheduled and as needed nebulizer treatments, steroid therapy, Mucinex, and empirically placed on IV azithromycin. He also received IV furosemide for diuresis as described below. His respiratory status gradually improved and he was transitioned to p.o. prednisone. Sputum culture resulted pansensitive E. coli and he was transitioned from azithromycin to p.o. ciprofloxacin. His oxygen requirement was weaned and by time of discharge he was ambulatory and maintaining oxygen saturations greater than 90% without elevated heart rate or sensation of dyspnea. At time of discharge, the patient is in stable condition and maintaining oxygen saturations on room air. He is discharged home with self-care. He is provided prescriptions for ciprofloxacin, furosemide, Mucinex, prednisone, and an albuterol rescue inhaler. He is advised to follow-up with his primary care provider within 1 week. (2) Acute bronchitis Is this a current diagnosis for this admission?: Yes Summary: Improved; course as above. (3) Acute exacerbation of CHF (congestive heart failure) Is this a current diagnosis for this admission?: Yes Summary: Resolved. Initial Chest x-ray revealed pulmonary edema. Repeat CXR shows improved aeration ProBNP is 753.--> 415 Echocardiogram (11/05/17) demonstrated a normal LVEF, mild diastolic dysfunction , and mild pulmonary hypertension. Although the patient had a normal proBNP, chest x-ray revealed pulmonary edema and the patient complained of dyspnea, orthopnea, and worsening bilateral lower extremity edema. His blood pressures were monitored closely to evaluate for potential of initiating Entresto as this is the patient's second admission within 1 month for similar symptoms; however, his blood pressures are most often less than 120/70. The patient was admitted to the medical floor on continuous cardiac telemetry. He was initially diuresed with IV furosemide with adequate urinary output and reduction of 3.9 kg. His orthopnea improved in his bilateral lower extremity edema resolved. He was transitioned to p.o. furosemide 40 mg every morning and 20 mg each afternoon. He is advised on a low-sodium diet. He is educated about the importance of daily weights and reporting weight gain of 2 pounds overnight. He is discharged home with an updated prescription for his new furosemide dosing. He is advised to follow-up with his primary care provider within 1 week. The patient may benefit from decreased furosemide dosing so that blood pressure may allow initiation of Entresto. (4) Acute hypoxemic respiratory failure Is this a current diagnosis for this admission?: Yes Summary: Resolved; secondary to COPD exacerbation, acute bronchitis, and CHF. The patient is now maintaining oxygen saturations > 90% while ambulatory on room air. (5) Chronic back pain Is this a current diagnosis for this admission?: Yes Summary: Controlled utilizing the patient's home medication regiment. (6) Chronic nausea Is this a current diagnosis for this admission?: Yes Summary: Controlled utilizing the patient's home medication regiment. (7) GERD (gastroesophageal reflux disease) Is this a current diagnosis for this admission?: Yes (8) Depression Is this a current diagnosis for this admission?: Yes - Additional Information Resuscitation Status: Full Code Discharge Diet: Cardiac Discharge Activity: Activity As Tolerated, Balance Activity w/Rest, Weigh Daily Prescriptions: Albuterol Sulfate [Proair HFA] 1 - 2 puff IH Q4HP PRN #1 inhaler PRN Reason: Shortness Of Breath Ciprofloxacin HCl [Cipro 750 mg Tablet] 750 mg PO Q12 #14 tablet Furosemide [Lasix] 20 mg PO BID@0800,1400 #90 tablet Guaifenesin [Mucinex Sr 600 mg Tablet.sa] 600 mg PO Q12 #30 tablet.sa Lidocaine [Lidoderm 5% (700 mg) Transdermal Patch] 1 patch TP DAILY #30 adh..patch Prednisone [Deltasone 20 mg Tablet] 40 mg PO DAILY #10 tablet Home Medications: Atorvastatin Calcium [Lipitor 40 mg Tablet] 40 mg PO QHS 11/15/17 Fluoxetine HCl [Prozac] 40 mg PO DAILY 11/15/17 Fluticasone/Salmeterol [Advair 500-50 Diskus 14 Dose/Diskus] 1 puff IH Q12 11/15 Gabapentin [Neurontin 400 mg Capsule] 400 mg PO Q6 11/15/17 Iron Aspgly,Ps/C/B12/FA/Ca/Suc [Ferrex 150 Forte Plus Capsule] 1 cap PO DAILY Melatonin [Melatonin 5 mg Tablet] 5 mg PO QHS 11/15/17 Oxycodone HCl [Oxycodone HCl 10 MG Tablet] 10 mg PO Q6HP PRN 11/15/17 Oxycodone HCl [Oxycontin] 30 mg PO Q12 11/15/17 Pantoprazole Sodium [Protonix] 40 mg PO BID 11/15/17 Promethazine HCl [Phenergan 25 mg Tablet] 25 mg PO Q12HP PRN 11/15/17 Tiotropium Julian [Spiriva Handihaler 5 Cap/Kit (18 Mcg/Cap)] 1 puff IH DAILY 11/15/17 Venlafaxine HCl ER [Effexor Xr 37.5 mg Cap.sr] 37.5 mg PO DAILY 11/15/17 Acetaminophen [Tylenol 325 mg Tablet] 650 mg PO Q4HP PRN tablet 11/19/17 Albuterol Sulfate [Proair HFA] 1 - 2 puff IH Q4HP PRN #1 inhaler 11/19/17 Atorvastatin Calcium [Lipitor 40 mg Tablet] 40 mg PO QHS tablet 11/19/17 Ciprofloxacin HCl [Cipro 750 mg Tablet] 750 mg PO Q12 #14 tablet 11/19/17 Furosemide [Lasix] 20 mg PO BID@0800,1400 #90 tablet 11/19/17 Gabapentin [Neurontin 400 mg Capsule] 400 mg PO Q6 capsule 11/19/17 Guaifenesin [Mucinex Sr 600 mg Tablet.sa] 600 mg PO Q12 #30 tablet.sa 11/19/17 Lidocaine [Lidoderm 5% (700 mg) Transdermal Patch] 1 patch TP DAILY #30 adh..patch 11/19/17 Melatonin [Melatonin 5 mg Tablet] 5 mg PO QHS tablet 11/19/17 Oxycodone HCl [Oxy-Ir 5 mg Tablet] 10 mg PO Q6 tablet 11/19/17 Oxycodone HCl [Oxycontin Sr 10 mg Tablet] 30 mg PO Q12 tab.sr.12h 11/19/17 Prednisone [Deltasone 20 mg Tablet] 40 mg PO DAILY #10 tablet 11/19/17 History of Present Illness History of Present Illness: WILLIE RUBI is a 62 year old male with a past medical history of COPD, CHF, [place] with stents x2, hyperlipidemia, chronic back pain with neuropathy who presented to the emergency department today with a complaint of shortness of breath. The patient states that he is unable to ambulate more than a few feet without becoming severely dyspneic. He states that he felt well until this morning when he experienced a sudden worsening of his breathing. He reports chest wall pain associated with deep breathing or cough. He complains of a nonproductive cough and sore throat. He denies fever, chills, chest pain, palpitations, orthopnea, abdominal pain, vomiting and diarrhea. He does endorse nausea since arrival to the emergency department. He also reports bilateral lower leg edema which is slightly improved from baseline. Evaluation in the emergency department reveals mild leukocytosis with a white count of 11.4, baseline anemia with hemoglobin of 11.3, and pulmonary edema by chest x-ray and CTA. He is found to be afebrile, heart rate, tachypneic with a rate of 25, and hypoxic with oxygen saturations declining to the mid 60s with ambulation while on room air. He is referred to the hospitalist service for admission and management of COPD and CHF exacerbation. Physical Exam Vital Signs: Temp Pulse Resp BP Pulse Ox 98.2 F 63 18 119/79 96 11/19/17 03:17 11/19/17 08:30 11/19/17 08:30 11/19/17 03:17 11/19/17 08:30 Intake & Output 11/18/17 11/19/17 11/20/17 06:59 06:59 06:59 Intake Total 1614 1435 Output Total 2700 Balance -1086 1435 Weight 81.3 kg 77.7 kg General appearance: PRESENT: no acute distress, well-developed, well-nourished, other - OVerweight Head exam: PRESENT: atraumatic, normocephalic Eye exam: PRESENT: conjunctiva pink, EOMI, PERRLA. ABSENT: scleral icterus Ear exam: PRESENT: normal external ear exam Mouth exam: PRESENT: moist, tongue midline Neck exam: ABSENT: carotid bruit, JVD, lymphadenopathy, thyromegaly Respiratory exam: PRESENT: clear to auscultation jw, symmetrical, unlabored. ABSENT: rales, rhonchi, wheezes Cardiovascular exam: PRESENT: RRR, +S1, +S2. ABSENT: diastolic murmur, rubs, systolic murmur Pulses: PRESENT: normal dorsalis pedis pul Vascular exam: PRESENT: normal capillary refill GI/Abdominal exam: PRESENT: normal bowel sounds, soft. ABSENT: distended, guarding, mass, organolmegaly, rebound, tenderness Rectal exam: PRESENT: deferred Extremities exam: PRESENT: full ROM, pedal edema - trace BLE. ABSENT: calf tenderness, clubbing Neurological exam: PRESENT: alert, awake, oriented to person, oriented to place , oriented to time, oriented to situation, CN II-XII grossly intact. ABSENT: motor sensory deficit Psychiatric exam: PRESENT: appropriate affect, normal mood. ABSENT: homicidal ideation, suicidal ideation Skin exam: PRESENT: dry, intact, warm. ABSENT: cyanosis, rash Results Laboratory Results: 11/19/17 05:58 11/18/17 05:30 11/19/17 05:58 WBC 8.8 RBC 4.23 L Hgb 11.8 L Hct 36.0 L MCV 85 MCH 27.9 MCHC 32.8 RDW 15.7 H Plt Count 302 11/16/17 02:30 Sputum Gram Stain - Final 11/16/17 02:30 Sputum Sputum Culture - Final Escherichia Coli C.albicans/C.dubliniensis Normal Ivelisse 11/17/17 04:27 NT-Pro-B Natriuret Pep 415 Impressions: Chest/Abdomen CTA 11/15/17 13:17 IMPRESSION: Pulmonary edema. No PE. Chest X-Ray 11/16/17 00:00 IMPRESSION: Improved aeration since yesterday. Qualifiers - * PATIENT BEING DISCHARGED WITH ANY OF THE FOLLOWING DIAGNOSIS: Heart Failure HF Pt being discharged on ACEI for LVEF less than 40%?: No Reason(s) for not prescribing ACEI:: Not indicated HF Pt being discharged on ARBS for LVEF less than 40%?: No Reason(s) for not prescribing ARBS:: Not indicated HF Pt with Afib discharged with Warfarin?: No Reason(s) for not prescribing Warfarin:: Not indicated HF Pt discharged on evidence-based Beta Mónica:: No Reason(s) for not prescribing evidence-based Beta Mónica:: Not indicated Plan Discharge Plan: Discharge to home with self care. Follow up with primary care provider within 1 week. Time Spent: Less than 30 Minutes
== END 2017-11-19 11:09 | disposition home or self-care (01) | DRG 189 ==
LOC: ER 12:01 → EH 15:38 → 3S 17:19
PROVIDERS: ADMIT Internal Medicine; ATTEND Internal Medicine
DX: J96.01 Acute respiratory failure with hypoxia (principal); I50.33 Acute on chronic diastolic (congestive) heart failure; J44.1 Chronic obstructive pulmonary disease with (acute) exacerbation; J44.0 Chronic obstructive pulmonary disease with (acute) lower respiratory infection; F11.20 Opioid dependence, uncomplicated; J20.9 Acute bronchitis, unspecified; I50.9 Heart failure, unspecified; I25.10 Atherosclerotic heart disease of native coronary artery without angina pectoris; K21.9 Gastro-esophageal reflux disease without esophagitis; B96.20 Unspecified Escherichia coli [E. coli] as the cause of diseases classified elsewhere; G89.29 Other chronic pain; M54.9 Dorsalgia, unspecified; G62.9 Polyneuropathy, unspecified; F32.9 Major depressive disorder, single episode, unspecified; F43.10 Post-traumatic stress disorder, unspecified; I25.2 Old myocardial infarction; Z87.891 Personal history of nicotine dependence; Z98.84 Bariatric surgery status; Z79.51 Long term (current) use of inhaled steroids; Z79.52 Long term (current) use of systemic steroids; Z79.899 Other long term (current) drug therapy
CPT/HCPCS: 36415; 36600; 71045; 71275; 80048; 80053; 82550; 82553; 82803; 83605; 83880; 84484; 85025; 85027; 87040; 87070; 87077; 87186; 87205; 93005; 93010; 94640; 94660; 94799; 96374; 96375; 99291; J0456; J1644; J1940; J2405; J2920; J2930; J3490; J7060; J7512; J7620; S0119

== ENCOUNTER 2018-01-27 08:18 | Emergency (ER) | payer MEDICARE, OTHER ==
--- NOTE | 2018-01-27 10:00 | ER Document Report ---
ED Respiratory Problem - General Chief Complaint: Breathing Difficulty Stated Complaint: DIFFICULTY BREATHING Time Seen by Provider: 01/27/18 09:23 Notes: 62-year-old male to emergency department with chief complaint shortness of breath. Patient states that he has had increased shortness of breath as well as bilateral lower extremity edema over the last several days getting worse. Denies any chest pain. Taking his regular medications. Has a history of COPD. TRAVEL OUTSIDE OF THE [place] IN LAST 30 DAYS: No - HPI Patient complains to provider of: COPD, Short of breath Onset: Last week Duration: Continuous Quality of pain: No pain Severity: Moderate Pain Level: 2 - Related Data Allergies/Adverse Reactions: No Known Allergies Allergy (Verified 01/27/18 08:19) Past Medical History - General Information source: Patient - Social History Smoking Status: Former Smoker Cigarette use (# per day): No Drug Abuse: None Lives with: Family Family History: Reviewed & Not Pertinent, Hypertension - Past Medical History Cardiac Medical History: Reports: Hx Congestive Heart Failure, Hx Coronary Artery Disease, Hx Heart Attack Denies: Hx Atrial Fibrillation, Hx Hypercholesterolemia, Hx Hypertension, Hx Peripheral Vascular Disease, Hx Pulmonary Embolism, Hx Heart Murmur Pulmonary Medical History: Reports: Hx COPD, Hx Pneumonia Denies: Hx Asthma, Hx Bronchitis, Hx Respiratory Failure, Hx Sleep Apnea, Hx Tuberculosis Neurological Medical History: Denies: Hx Cerebrovascular Accident, Hx Seizures Endocrine Medical History: Denies: Hx Diabetes Mellitus Type 1, Hx Diabetes Mellitus Type 2, Hx Graves' Disease, Hx Hyperthyroidism, Hx Hypothyroidism Renal/ Medical History: Reports: Hx Kidney Stones. Denies: Hx Benign Prostatic Hyperplasia, Hx End Stage Renal Disease, Hx Peritoneal Dialysis Malignancy Medical History: Denies Hx Leukemia, Denies Hx Lung Cancer GI Medical History: Reports: Hx Gastroesophageal Reflux Disease, Hx Ulcer. Denies: Hx Crohn's Disease, Hx Hiatal Hernia, Hx Irritable Bowel, Hx Liver Failure, Hx Pancreatitis Musculoskeletal Medical History: Denies Hx Arthritis, Denies Hx Fibromyalgia, Denies Hx Multiple Sclerosis, Denies Hx Muscular Dystrophy Psychiatric Medical History: Reports: Hx Post Traumatic Stress Disorder Denies: Hx Bipolar Disorder, Hx Dementia, Hx Depression, Hx Schizophrenia Traumatic Medical History: Denies: Hx Fractures Infectious Medical History: Denies: Hx HIV Past Surgical History: Reports: Hx Abdominal Surgery - gastric bypass, Hx Appendectomy - 2002, Hx Cardiac Catheterization - stents x 2, Hx Cardiac Surgery - two stents, Hx Cholecystectomy - 2009, Hx Gastric Bypass Surgery - (x2 ) surgery to repair. Denies: Hx Bowel Surgery, Hx Colostomy, Hx Coronary Artery Bypass Graft, Hx Herniorrhaphy, Hx Pacemaker, Hx Tonsillectomy - Immunizations Hx Diphtheria, Pertussis, Tetanus Vaccination: Yes Hx Pneumococcal Vaccination: 12/13/11 Review of Systems - Review of Systems Constitutional: No symptoms reported EENT: No symptoms reported Cardiovascular: Orthopnea, Dyspnea, Syncope, Edema, Paroxysmal Nocturnal Dysp Respiratory: No symptoms reported Gastrointestinal: No symptoms reported Genitourinary: No symptoms reported Male Genitourinary: No symptoms reported Musculoskeletal: No symptoms reported Skin: No symptoms reported Hematologic/Lymphatic: No symptoms reported Neurological/Psychological: No symptoms reported Physical Exam - Vital signs Vitals: Temp Pulse Resp BP Pulse Ox 98.3 F 74 24 H 108/62 98 01/27/18 08:23 01/27/18 08:23 01/27/18 08:23 01/27/18 08:23 01/27/18 08:23 Interpretation: Normal - General General appearance: Appears well, Alert - HEENT Head: Normocephalic, Atraumatic Eyes: Normal Pupils: PERRL - Respiratory Respiratory status: No respiratory distress Chest status: Nontender Breath sounds: Normal Chest palpation: Normal - Cardiovascular Rhythm: Regular Heart sounds: Normal auscultation Murmur: No - Abdominal Inspection: Normal Distension: No distension Bowel sounds: Normal Tenderness: Nontender Organomegaly: No organomegaly - Back Back: Normal, Nontender - Extremities General upper extremity: Normal inspection, Nontender, Normal color, Normal ROM , Normal temperature General lower extremity: Normal inspection, Nontender, Edema, Normal color, Normal ROM, Normal temperature, Normal weight bearing. No: Faraz's sign - Neurological Neuro grossly intact: Yes Cognition: Normal Orientation: AAOx4 [place] Coma Scale Eye Opening: Spontaneous [place] Coma Scale Verbal: Oriented [place] Coma Scale Motor: Obeys Commands Samir Coma Scale Total: 15 Speech: Normal Motor strength normal: LUE, RUE, LLE, RLE Sensory: Normal - Psychological Associated symptoms: Normal affect, Normal mood - Skin Skin Temperature: Warm Skin Moisture: Dry Skin Color: Normal Course - Re-evaluation Re-evalutation: 01/27/18 12:42 Patient's chest x-rays unremarkable. Labs are negative. No evidence at this time of significant congestive heart failure. More than likely a COPD exacerbation. Giving prednisone and breathing treatment at this time. May start on antibiotics as well. Patient seems comfortable with this plan. Will DC shortly. - Vital Signs Vital signs: Temp Pulse Resp BP Pulse Ox 98.3 F 74 13 118/83 97 01/27/18 08:23 01/27/18 08:23 01/27/18 11:01 01/27/18 11:01 01/27/18 11:01 - Laboratory Result Diagrams: 01/27/18 10:40 01/27/18 10:40 Laboratory results interpreted by me: 01/27/18 01/27/18 10:40 10:40 RBC 4.27 L Hgb 12.4 L Hct 37.4 L RDW 17.7 H Seg Neutrophils % 80.1 H Sodium 148.1 H ALT 20 L - EKG Interpretation by Me EKG shows normal: Sinus rhythm, Price, Intervals, QRS Complexes, ST-T Waves Discharge - Discharge Clinical Impression: COPD exacerbation Disposition: HOME, SELF-CARE Instructions: Chronic Obstructive Lung Disease ([facility]) Additional Instructions: More than likely you have an exacerbation of your COPD. Continue to use your albuterol inhaler as needed. Begin taking the prednisone antibiotics as prescribed. In the event that your symptoms are getting worse please return. Prescriptions: Amoxicillin 1 tab PO TID #30 tab Prednisone [Deltasone 20 mg Tablet] 3 tab PO DAILY 5 Days #15 tablet Referrals: TOÑO RICE MD [Primary Care Provider] - Follow up as needed
[2018-01-27] MEDS ORDERED: OXYCODONE-ACETAMINOPHEN 5-325 MG TABLET PO ONE (10:01)
[2018-01-27 11:04] LABS: ABSOLUTE BASOPHILS # (AUTO) 0.1 10^3/uL (0.0-0.2); ABSOLUTE EOSINOPHILS # (AUTO) 0.1 10^3/uL (0.0-0.6); ABSOLUTE LYMPHOCYTES (AUTO) 1.4 10^3/uL (0.5-4.7); ABSOLUTE MONOCYTES (AUTO) 0.5 10^3/uL (0.1-1.4); BASOPHILS % (AUTO) 0.6 % (0-2); HEMATOCRIT 37.4 % (37.9-51.0); HEMOGLOBIN 12.4 g/dL (13.5-17.0); LYMPHOCYTES % (AUTO) 13.7 % (13-45); MEAN CORPUSCULAR HEMOGLOBIN 29.2 pg (27.0-33.4); MEAN CORPUSCULAR HGB CONC 33.2 g/dL (32.0-36.0); MEAN CORPUSCULAR VOLUME 88 fl (80-97); MONOCYTES % (AUTO) 4.6 % (3-13); PLATELET COUNT 275 10^3/uL (150-450); RED BLOOD COUNT 4.27 10^6/uL (4.35-5.55); RED CELL DISTRIBUTION WIDTH 17.7 % (11.5-14.0); SEGMENTED NEUTROPHILS % (AUTO) 80.1 % (42-78); TOTAL CELLS COUNTED % (AUTO) 100 %
--- NOTE | 2018-01-27 11:15 | RADIOLOGY REPORT (SQ) ---
EXAM DESCRIPTION: CHEST SINGLE VIEW COMPLETED DATE/TIME: 01/27/2018 10:57 am REASON FOR STUDY: sob COMPARISON: 11/16/2017 EXAM PARAMETERS: NUMBER OF VIEWS: One view. TECHNIQUE: Single frontal radiographic view of the chest acquired. RADIATION DOSE: NA LIMITATIONS: None. FINDINGS: LUNGS AND PLEURA: No opacities, masses or pneumothorax. No pleural effusion. MEDIASTINUM AND HILAR STRUCTURES: No masses. Contour normal. HEART AND VASCULAR STRUCTURES: Stable cardiomegaly. BONES: No acute findings. HARDWARE: None in the chest. OTHER: No other significant finding. IMPRESSION: No evidence of acute cardiopulmonary process. TECHNICAL DOCUMENTATION: JOB ID: [id number] [employer]- All Rights Reserved Reading location - IP/workstation name: [email or web address]
[2018-01-27] MEDS ORDERED: ALBUTEROL SULFATE 0.083% NEB 2.5 MG/3 ML AMPUL NEB ONE (11:21)
[2018-01-27 11:29] LABS: ALANINE AMINOTRANSFERASE 20 U/L (21-72); ALKALINE PHOSPHATASE 114 U/L (38-126); ANION GAP 15 (5-19); ASPARTATE AMINO TRANSFERASE 21 U/L (17-59); BILIRUBIN,DIRECT 0.3 mg/dL (0.0-0.4); BILIRUBIN,TOTAL 0.4 mg/dL (0.2-1.3); BLOOD UREA NITROGEN 11 mg/dL (7-20); CALCIUM 8.7 mg/dL (8.4-10.2); CARBON DIOXIDE 29 mmol/L (22-30); CHLORIDE 104 mmol/L (98-107); GLUCOSE 93 mg/dL (75-110); POTASSIUM 3.6 mmol/L (3.6-5.0); SODIUM 148.1 mmol/L (137-145); TOTAL PROTEIN 6.9 g/dL (6.3-8.2)
[2018-01-27 11:38] LABS: NT PRO BNP 297 pg/mL (5-900)
[2018-01-27 11:47] LABS: TROPONIN I < 0.012 ng/mL
[2018-01-27] MEDS ORDERED: METHYLPREDNISOLONE INJ 125 MG/2 ML SDV IV ONE (11:48)
[2018-01-27] MEDS ORDERED: PREDNISONE 20 MG TABLET PO ONE (12:41)
[2018-01-27 12:57] VITALS: BP 134/106
--- NOTE | 2018-01-27 23:05 | EKG REPORT ---
SEVERITY:- BORDERLINE ECG - SINUS RHYTHM BORDERLINE LEFT AXIS DEVIATION CONSIDER ANTERIOR INFARCT : Confirmed by: Caroline Menjivar 27-Jan-2018 23:03:28
== END 2018-01-27 13:01 | disposition home or self-care (01) ==
LOC: ER 08:18
DX: J44.1 Chronic obstructive pulmonary disease with (acute) exacerbation (principal); R55 Syncope and collapse; R06.02 Shortness of breath; R60.0 Localized edema; I25.10 Atherosclerotic heart disease of native coronary artery without angina pectoris; Z79.899 Other long term (current) drug therapy; Z87.891 Personal history of nicotine dependence; Z87.01 Personal history of pneumonia (recurrent); Z95.5 Presence of coronary angioplasty implant and graft
CPT/HCPCS: 93005; 94640; 99285; 36415; 85025; 80053; 84484; 83880; 71045; 93010; A9270 ×3; J7512

== ENCOUNTER → 2018-03-15 | Outpatient (CLI) | payer MEDICARE, OTHER ==
[2018-03-15 12:05] LABS: HEMATOCRIT 37.8 % (37.9-51.0); HEMOGLOBIN 12.6 g/dL (13.5-17.0); MEAN CORPUSCULAR HGB CONC 33.4 g/dL (32.0-36.0); MEAN CORPUSCULAR VOLUME 87 fl (80-97); PLATELET COUNT 297 10^3/uL (150-450); RED BLOOD COUNT 4.34 10^6/uL (4.35-5.55); RED CELL DISTRIBUTION WIDTH 15.5 % (11.5-14.0); WHITE BLOOD COUNT 6.3 10^3/uL (4.0-10.5)
--- NOTE | 2018-03-15 12:20 | RADIOLOGY REPORT (SQ) ---
EXAM DESCRIPTION: CHEST PA/LATERAL COMPLETED DATE/TIME: 03/15/2018 11:46 am REASON FOR STUDY: CAD S/P GA,CHF,SOB COMPARISON: 01/27/2018. EXAM PARAMETERS: NUMBER OF VIEWS: two views TECHNIQUE: Digital Frontal and Lateral radiographic views of the chest acquired. RADIATION DOSE: NA LIMITATIONS: none FINDINGS: LUNGS AND PLEURA: Scattered linear densities in the lung bases. No focal infiltrates, mas ses or pneumothorax. No pleural effusion. MEDIASTINUM AND HILAR STRUCTURES: No masses or contour abnormalities. HEART AND VASCULAR STRUCTURES: Heart normal size. No evidence for failure. BONES: No acute findings. HARDWARE: None in the chest. OTHER: No other significant finding. IMPRESSION: BASILAR ATELECTASIS/ SCARRING. NO ACUTE FINDINGS. TECHNICAL DOCUMENTATION: JOB ID: [id number] [employer]- All Rights Reserved Reading location - IP/workstation name: [email or web address]
[2018-03-15 13:29] LABS: CHOLESTEROL 138.78 mg/dL (0-200); DIRECT LDL 69 mg/dL (<100); TRIGLYCERIDES 116 mg/dL (<150); VLDL CHOLESTEROL 23.2 mg/dL (10-31)
[2018-03-16 09:33] LABS: ALANINE AMINOTRANSFERASE 24 U/L (21-72); ALBUMIN 3.6 g/dL (3.5-5.0); ALKALINE PHOSPHATASE 102 U/L (38-126); ANION GAP 11 (5-19); ASPARTATE AMINO TRANSFERASE 22 U/L (17-59); BILIRUBIN,DIRECT 0.3 mg/dL (0.0-0.4); BILIRUBIN,TOTAL 0.3 mg/dL (0.2-1.3); BLOOD UREA NITROGEN 8 mg/dL (7-20); CALCIUM 8.6 mg/dL (8.4-10.2); CARBON DIOXIDE 32 mmol/L (22-30); CHLORIDE 101 mmol/L (98-107); CREATINE KINASE 85 U/L (55-170); GLUCOSE 86 mg/dL (75-110); SODIUM 143.5 mmol/L (137-145); TOTAL PROTEIN 6.5 g/dL (6.3-8.2)
== END ==
LOC: OD 11:14
PROVIDERS: ATTEND Obstetrics & Gynecology
DX: I11.0 Hypertensive heart disease with heart failure (principal); I25.10 Atherosclerotic heart disease of native coronary artery without angina pectoris; I50.9 Heart failure, unspecified; R06.02 Shortness of breath; E78.5 Hyperlipidemia, unspecified; I25.2 Old myocardial infarction; Z79.899 Other long term (current) drug therapy
CPT/HCPCS: 36415; 71046; 80053; 80061; 82550; 83880; 85027

== ENCOUNTER 2018-04-20 15:51 | Inpatient (IN) | payer MEDICARE, OTHER ==
[2018-04-20] MEDS ORDERED: IPRATROPIUM/ALBUTEROL 0.5-2.5 MG/3 ML AMPUL NEB ONE (16:18)
[2018-04-20] MEDS ORDERED: LEVOFLOXACIN 750 MG/D5W RTU 750 MG/150 ML RTUPB IV ONE (16:19)
--- NOTE | 2018-04-20 16:44 | ER Document Report ---
ED Respiratory Problem - General Mode of Arrival: Medic Information source: Patient TRAVEL OUTSIDE OF THE [place] IN LAST 30 DAYS: No <PALOMA MCNEAL - Last Filed: 04/20/18 17:08> <TRE SHRESTHA - Last Filed: 04/21/18 01:19> - General Stated Complaint: RESPIRATORY DISTRESS Time Seen by Provider: 04/20/18 16:12 Notes: 62-year-old male who presents to the emergency department today with complaints of shortness of breath. Patient states this afternoon at [id number] he was attempting to go to the restroom and he could not get there without losing his breath. Patient states he has also had a cough with yellow sputum which has been going on for quite some time. Patient has a history of COPD and he still smokes 1/2 pack per day. Patient states his Lasix was recently increased to 80 mg once a day. (PALOMA MCNEAL) The patient's blood pressure is low. Review of records shows that it is frequently quite low. He does have a history of congestive heart failure and takes large dose of Lasix for this. For these reasons I will not be giving him the 30 mL's per kilogram bolus of normal saline. (TRE SHRESTHA) - Related Data Allergies/Adverse Reactions: No Known Allergies Allergy (Verified 01/27/18 08:19) Past Medical History - General Information source: Patient - Social History Smoking Status: Current Every Day Smoker Cigarette use (# per day): Yes - 1/2 ppd Frequency of alcohol use: None Drug Abuse: None Lives with: Family Family History: Reviewed & Not Pertinent, Hypertension - Past Medical History Cardiac Medical History: Reports: Hx Congestive Heart Failure, Hx Coronary Artery Disease, Hx Heart Attack Pulmonary Medical History: Reports: Hx COPD, Hx Pneumonia Renal/ Medical History: Reports: Hx Kidney Stones GI Medical History: Reports: Hx Gastroesophageal Reflux Disease, Hx Ulcer Psychiatric Medical History: Reports: Hx Post Traumatic Stress Disorder Past Surgical History: Reports: Hx Abdominal Surgery - surgery to repair gastric bypass x2, Hx Appendectomy - 2002, Hx Cardiac Catheterization, Hx Cholecystectomy - 2008, Hx Coronary Stent - x2, Hx Gastric Bypass Surgery - Immunizations Hx Diphtheria, Pertussis, Tetanus Vaccination: Yes Hx Pneumococcal Vaccination: 12/13/11 <PALOMA MCNEAL - Last Filed: 04/20/18 17:08> Review of Systems - Review of Systems Constitutional: See HPI, Fever EENT: No symptoms reported Cardiovascular: No symptoms reported Respiratory: See HPI, Cough, Short of breath Gastrointestinal: No symptoms reported Genitourinary: No symptoms reported Male Genitourinary: No symptoms reported Musculoskeletal: No symptoms reported Skin: No symptoms reported Hematologic/Lymphatic: No symptoms reported Neurological/Psychological: No symptoms reported -: Yes All other systems reviewed and negative <PALOMA MCNEAL - Last Filed: 04/20/18 17:08> - Vital signs Vitals: Resp Pulse Ox 17 91 L 04/20/18 16:03 04/20/18 16:03 Course - Laboratory Result Diagrams: 04/20/18 15:20 04/20/18 15:20 <PALOMA MCNEAL - Last Filed: 04/20/18 17:08> - Laboratory Result Diagrams: 04/20/18 15:20 04/20/18 15:20 - Diagnostic Test Radiology reviewed: Image reviewed, Reports reviewed - Left basilar infiltrate - EKG Interpretation by Sd EKG shows normal: Sinus rhythm, [place], Intervals, QRS Complexes. abnormal: ST-T Waves - Borderline inferior T abnormalities Rate: Tachycardia - 107 [place]/QRS: Left axis deviation - Consults Dr. Peralta Time consulted: 18:10 Consulted provider: will come to ER <TRE SHRESTHA - Last Filed: 04/21/18 01:19> - Vital Signs Vital signs: Temp Pulse Resp BP Pulse Ox 98.2 F 83 18 103/53 L 98 04/20/18 22:55 04/20/18 22:55 04/20/18 22:55 04/20/18 22:55 04/20/18 22:55 - Laboratory Laboratory results interpreted by me: 04/20/18 04/20/18 04/20/18 15:20 15:20 16:45 WBC 12.6 H RBC 3.86 L Hgb 11.1 L Hct 33.3 L RDW 15.9 H Seg Neutrophils % 89.5 H Lymphocytes % 7.0 L Monocytes % 2.8 L Absolute Neutrophils 11.3 H BUN 6 L Glucose 124 H Lactic Acid 3.0 H Calcium 8.2 L ALT 7 L Creatine Kinase 200 H Total Protein 6.2 L Albumin 3.4 L Critical Care Note - Critical Care Note Total time excluding time spent on procedures (mins): 35 <TRE SHRESTHA - Last Filed: 04/21/18 01:19> Discharge <PALOMA MCNEAL - Last Filed: 04/20/18 17:08> - Discharge Admitting Provider: Hospitalist Unit Admitted: IMCU <TRE SHRESTHA - Last Filed: 04/21/18 01:19> - Discharge Clinical Impression: COPD with exacerbation Pneumonia Qualifiers: Pneumonia type: due to unspecified organism Laterality: left Lung location: lower lobe of lung Qualified Code(s): J18.1 - Lobar pneumonia, unspecified organism Fever Qualifiers: Fever type: unspecified Qualified Code(s): R50.9 - Fever, unspecified Condition: Stable Disposition: ADMITTED INPATIENT Scribe Attestation: 04/20/18 17:53 I personally performed the services described in the documentation, reviewed and edited the documentation which was dictated to the scribe in my presence, and it accurately records my words and actions. (TRE SHRESTHA)
[2018-04-20 17:01] LABS: ABSOLUTE EOSINOPHILS # (AUTO) 0.1 10^3/uL (0.0-0.6); ABSOLUTE LYMPHOCYTES (AUTO) 0.9 10^3/uL (0.5-4.7); ABSOLUTE MONOCYTES (AUTO) 0.4 10^3/uL (0.1-1.4); ABSOLUTE NEUT (AUTO) 11.3 10^3/uL (1.7-8.2); BASOPHILS % (AUTO) 0.3 % (0-2); EOSINOPHILS % (AUTO) 0.4 % (0-6); HEMATOCRIT 33.3 % (37.9-51.0); HEMOGLOBIN 11.1 g/dL (13.5-17.0); MEAN CORPUSCULAR HEMOGLOBIN 28.7 pg (27.0-33.4); MEAN CORPUSCULAR HGB CONC 33.3 g/dL (32.0-36.0); MEAN CORPUSCULAR VOLUME 86 fl (80-97); MONOCYTES % (AUTO) 2.8 % (3-13); PLATELET COUNT 309 10^3/uL (150-450); RED BLOOD COUNT 3.86 10^6/uL (4.35-5.55); RED CELL DISTRIBUTION WIDTH 15.9 % (11.5-14.0); SEGMENTED NEUTROPHILS % (AUTO) 89.5 % (42-78); TOTAL CELLS COUNTED % (AUTO) 100 %; WHITE BLOOD COUNT 12.6 10^3/uL (4.0-10.5)
[2018-04-20 17:10] LABS: ALANINE AMINOTRANSFERASE 7 U/L (21-72); ALBUMIN 3.4 g/dL (3.5-5.0); ALKALINE PHOSPHATASE 120 U/L (38-126); ANION GAP 13 (5-19); ASPARTATE AMINO TRANSFERASE 19 U/L (17-59); BILIRUBIN,DIRECT 0.3 mg/dL (0.0-0.4); BILIRUBIN,TOTAL 0.6 mg/dL (0.2-1.3); BLOOD UREA NITROGEN 6 mg/dL (7-20); CALCIUM 8.2 mg/dL (8.4-10.2); CARBON DIOXIDE 25 mmol/L (22-30); CHLORIDE 100 mmol/L (98-107); CREATINE KINASE 200 U/L (55-170); GLUCOSE 124 mg/dL (75-110); POTASSIUM 4.5 mmol/L (3.6-5.0); SODIUM 137.8 mmol/L (137-145); TOTAL PROTEIN 6.2 g/dL (6.3-8.2)
--- NOTE | 2018-04-20 17:14 | RADIOLOGY REPORT (SQ) ---
EXAM DESCRIPTION: CHEST SINGLE VIEW COMPLETED DATE/TIME: 04/20/2018 4:55 pm REASON FOR STUDY: COPD exacerbation, fever, short of breath COMPARISON: 03/15/2018 TECHNIQUE: Single frontal radiographic view of the chest acquired. NUMBER OF VIEWS: One view. LIMITATIONS: None. FINDINGS: LUNGS AND PLEURA: No pneumothorax. Patchy left basilar consolidation. Mild increased int erstitial markings bilaterally. No significant pleural effusion. MEDIASTINUM AND HILAR STRUCTURES: Stable. HEART AND VASCULAR STRUCTURES: Stable. BONES: No acute findings. HARDWARE: None in the chest. OTHER: No other significant finding. IMPRESSION: Patchy left basilar consolidation. Mild increased interstitial markings bilaterally. N o significant pleural effusion. TECHNICAL DOCUMENTATION: JOB ID: [id number] [id number] [employer]- All Rights Reserved Reading location - IP/workstation name: [email or web address]
[2018-04-20 17:22] LABS: CREATINE KINASE MB 2.24 ng/mL (<4.55)
[2018-04-20 17:23] LABS: TROPONIN I < 0.012 ng/mL
[2018-04-20] MEDS ORDERED: VANCOMYCIN HCL 0 MG in DEXTROSE 5%-WATER 250 ML IV NR (19:00)
--- NOTE | 2018-04-20 19:08 | PDOC H&P ---
History of Present Illness Admission Date/PCP: 04/20/18 18:42 TOÑO RICE MD Patient complains of: cough, SOB, wheezing History of Present Illness: WILLIE RUBI is a 62 year old male with a past medical history of COPD not on home oxygen, history of congestive heart failure with recovered ejection fraction, history of CAD with prior stenting x2, hyperlipidemia, and chronic back pain with neuropathy who presented with productive cough, wheezing and shortness of breath. Patient says that he has been having productive cough with yellowish sputum production in the past 2-3 days. He said that earlier this afternoon he developed wheezing and progressive shortness of breath at home. He does complain of subjective fever at home. He denies chills. He denies recent sick contacts or travel. He denies chest pain, dizziness, or palpitations. Upon arrival in the ER, patient was noted to have bilateral wheezing. He as hypoxic at 88% on room air. He is not O2 dependent at home. He was given breathing treatments and he did report improvement in breathing status after the breathing treatments. His chest x-ray showed pneumonia with left lower lobe consolidation. He also was noted to have lactic acidosis. Past Medical History Cardiac Medical History: Reports: Congestive Heart Failure, Coronary Artery Disease, Myocardial Infarction Denies: Atrial Fibrillation, Hyperlipidema, Hypertension Pulmonary Medical History: Reports: Chronic Obstructive Pulmonary Disease (COPD) , Pneumonia Denies: Asthma, Bronchitis, Tuberculosis Neurological Medical History: Denies: Seizures Endocrine Medical History: Denies: Diabetes Mellitus Type 1, Diabetes Mellitus Type 2 Renal/ Medical History: Denies: End Stage Renal Disease Malignancy Medical History: Denies: Breast Cancer, Cervical Cancer, Ovarian Cancer GI Medical History: Reports: Gastroesophageal Reflux Disease Denies: Hiatal Hernia Musculoskeltal Medical History: Denies: Arthritis Psychiatric Medical History: Reports: Post Traumatic Stress Disorder Denies: Bipolar Disorder, Depression Hematology: Reports: Anemia - currently Denies: Hemophilia, Sickle Cell Disease Past Surgical History Past Surgical History: Reports: Appendectomy - 2002, Cardiac Catheterization, Cholecystectomy - 2008, Coronary Stent - x2, Gastric Bypass Surgery Denies: Tonsillectomy Social History Lives with: Family Smoking Status: Current Every Day Smoker Frequency of Alcohol Use: None Hx Recreational Drug Use: No Drugs: None Hx Prescription Drug Abuse: No Family History Family History: Reviewed & Not Pertinent, Hypertension Parental Family History Reviewed: Yes - no premature CAD Children Family History Reviewed: No Sibling(s) Family History Reviewed.: No Medication/Allergy Home Medications: Atorvastatin Calcium [Lipitor 40 mg Tablet] 40 mg PO QHS 11/15/17 Fluoxetine HCl [Prozac] 40 mg PO DAILY 11/15/17 Fluticasone/Salmeterol [Advair 500-50 Diskus 14 Dose/Diskus] 1 puff IH Q12 11/15 Gabapentin [Neurontin 400 mg Capsule] 400 mg PO Q6 11/15/17 Iron Aspgly,Ps/C/B12/FA/Ca/Suc [Ferrex 150 Forte Plus Capsule] 1 cap PO DAILY Melatonin [Melatonin 5 mg Tablet] 5 mg PO QHS 11/15/17 Oxycodone HCl [Oxycodone HCl 10 MG Tablet] 10 mg PO Q6HP PRN 11/15/17 Oxycodone HCl [Oxycontin] 30 mg PO Q12 11/15/17 Pantoprazole Sodium [Protonix] 40 mg PO BID 11/15/17 Promethazine HCl [Phenergan 25 mg Tablet] 25 mg PO Q12HP PRN 11/15/17 Tiotropium [place] [Spiriva Handihaler 5 Cap/Kit (18 Mcg/Cap)] 1 puff IH DAILY 11/15/17 Venlafaxine HCl ER [Effexor Xr 37.5 mg Cap.sr] 37.5 mg PO DAILY 11/15/17 Acetaminophen [Tylenol 325 mg Tablet] 650 mg PO Q4HP PRN tablet 11/19/17 Albuterol Sulfate [Proair HFA] 1 - 2 puff IH Q4HP PRN #1 inhaler 11/19/17 Atorvastatin Calcium [Lipitor 40 mg Tablet] 40 mg PO QHS tablet 11/19/17 Ciprofloxacin HCl [Cipro 750 mg Tablet] 750 mg PO Q12 #14 tablet 11/19/17 Furosemide [Lasix] 20 mg PO BID@0800,1400 #90 tablet 11/19/17 Gabapentin [Neurontin 400 mg Capsule] 400 mg PO Q6 capsule 11/19/17 Guaifenesin [Mucinex Sr 600 mg Tablet.sa] 600 mg PO Q12 #30 tablet.sa 11/19/17 Lidocaine [Lidoderm 5% (700 mg) Transdermal Patch] 1 patch TP DAILY #30 adh..patch 11/19/17 Melatonin [Melatonin 5 mg Tablet] 5 mg PO QHS tablet 11/19/17 Oxycodone HCl [Oxy-Ir 5 mg Tablet] 10 mg PO Q6 tablet 11/19/17 Oxycodone HCl [Oxycontin Sr 10 mg Tablet] 30 mg PO Q12 tab.sr.12h 11/19/17 Prednisone [Deltasone 20 mg Tablet] 40 mg PO DAILY #10 tablet 11/19/17 Albuterol Sulfate [Proair HFA Inhalation Aerosol 8.5 gm MDI] 2 puff IH Q4H PRN # 1 mdi 01/27/18 Amoxicillin 1 tab PO TID #30 tab 01/27/18 Prednisone [Deltasone 20 mg Tablet] 3 tab PO DAILY 5 Days #15 tablet 01/27/18 Allergies/Adverse Reactions: No Known Allergies Allergy (Verified 01/27/18 08:19) Review of Systems All systems: reviewed and no additional remarkable complaints except as stated - except as mentiond in HPI Physical Exam Vital Signs: Temp Pulse Resp BP Pulse Ox 98.8 F 21 H 95/54 L 93 04/20/18 17:44 04/20/18 17:00 04/20/18 16:05 04/20/18 17:00 General appearance: PRESENT: no acute distress, well-developed, well-nourished Head exam: PRESENT: atraumatic, normocephalic Eye exam: PRESENT: conjunctiva pink, EOMI, PERRLA. ABSENT: scleral icterus Ear exam: PRESENT: normal external ear exam Mouth exam: PRESENT: moist, tongue midline Neck exam: ABSENT: carotid bruit, JVD, lymphadenopathy, thyromegaly Respiratory exam: PRESENT: crackles - on the left base, rhonchi, wheezes - bilateral wheezes. ABSENT: rales Cardiovascular exam: PRESENT: RRR. ABSENT: diastolic murmur, rubs, systolic murmur Pulses: PRESENT: normal dorsalis pedis pul GI/Abdominal exam: PRESENT: normal bowel sounds, soft. ABSENT: distended, guarding, mass, organolmegaly, rebound, tenderness Rectal exam: PRESENT: deferred Neurological exam: PRESENT: alert, awake, oriented to person, oriented to place , oriented to time, oriented to situation, CN II-XII grossly intact. ABSENT: motor sensory deficit Results Impressions: Chest X-Ray 04/20/18 16:17 IMPRESSION: Patchy left basilar consolidation. Mild increased interstitial markings bilaterally. No significant pleural effusion. Assessment & Plan - Diagnosis (1) Acute respiratory failure with hypoxia Is this a current diagnosis for this admission?: Yes Plan: Improved. This is secondary to COPD exacerbation and pneumonia. Patient is currently saturating well at 97% on 2 L of oxygen via nasal cannula. (2) Sepsis Is this a current diagnosis for this admission?: Yes Plan: Sepsis secondary to left lower lobe pneumonia. Patient presented with tachycardia, hypoxia, fever, leukocytosis and lactic acidosis. Blood cultures have been drawn. Will check sputum culture. We will continue to trend lactic acid. Antibiotics as mentioned. (3) Pneumonia Qualifiers: Pneumonia type: due to unspecified organism Laterality: left Lung location: lower lobe of lung Qualified Code(s): J18.1 - Lobar pneumonia, unspecified organism Is this a current diagnosis for this admission?: Yes Plan: Chest x-ray shows left lower lobe consolidation. Will start vancomycin and Zosyn. Will de-escalate tomorrow morning on patient's clinical course. (4) COPD with acute exacerbation Is this a current diagnosis for this admission?: Yes Plan: Patient will be started on IV steroids. Will also be started on scheduled breathing treatments with DuoNeb. Antibiotics as mentioned for pneumonia. (5) CHF (congestive heart failure) Qualifiers: Heart failure type: diastolic Heart failure chronicity: acute on chronic Qualified Code(s): I50.33 - Acute on chronic diastolic (congestive) heart failure Is this a current diagnosis for this admission?: Yes Plan: Patient has history of congestive heart failure but has recovered ejection fraction with last echo showing a normal ejection fraction in October 2017. He does take Lasix at home. He does have chronic bipedal edema. We will hold off on Lasix for now due to his sepsis and lactic acidosis. - Time Time Spent: 30 to 50 Minutes
[2018-04-20] MEDS ORDERED: NORMAL SALINE 1000 ML 1,000 ML IV PRN (19:09)
[2018-04-20] MEDS ORDERED: VANCOMYCIN HCL 1,000 MG in DEXTROSE 5%-WATER 250 ML IV ONE (20:00)
[2018-04-20] MEDS ORDERED: VANCOMYCIN HCL INJ 1000 MG VIAL ONE (20:32)
[2018-04-20] MEDS: METHYLPREDNISOLONE INJ 40 MG/1 ML SDV IV SCH ×2 (20:43→23:53)
[2018-04-20] MEDS: IPRATROPIUM/ALBUTEROL 0.5-2.5 MG/3 ML AMPUL NEB SCH (20:44)
--- NOTE | 2018-04-20 20:49 | EKG REPORT ---
SEVERITY:- BORDERLINE ECG - SINUS TACHYCARDIA LEFT AXIS DEVIATION BORDERLINE T ABNORMALITIES, ANTERIOR LEADS : Confirmed by: Qiana Prieto MD 20-Apr-2018 20:48:40
[2018-04-20] MEDS: OXYCODONE HCL IR 5 MG TABLET PO PRN (23:43)
[2018-04-20] MEDS: HEPARIN SOD (PORCINE) 5,000 UNIT/ML 1 ML SYRINGE SUBCUT SCH (23:53)
[2018-04-21 01:38] LABS: APPEARANCE,URINE CLEAR; BILIRUBIN,URINE NEGATIVE (NEGATIVE); COLOR,URINE STRAW; GLUCOSE, URINE NEGATIVE (NEGATIVE); KETONES,URINE NEGATIVE (NEGATIVE); LEUKOCYTE ESTERASE,URINE NEGATIVE (NEGATIVE); NITRITE,URINE NEGATIVE (NEGATIVE); PROTEIN,URINE NEGATIVE (NEGATIVE); URINE SPECIFIC GRAVITY 1.005; UROBILINOGEN,URINE NEGATIVE mg/dL (<2.0)
[2018-04-21] MEDS: IPRATROPIUM/ALBUTEROL 0.5-2.5 MG/3 ML AMPUL NEB SCH ×4 (02:11→19:57)
[2018-04-21] MEDS ORDERED: PIPERACILLIN/TAZOBACTAM 3.375 GM VIAL IV ONE (02:34)
[2018-04-21] MEDS: PIPERACILLIN SODIUM/TAZOBACTAM 3.375 GM in NORMAL SALINE 100 ML IV SCH (04:16)
[2018-04-21] MEDS: OXYCODONE HCL IR 5 MG TABLET PO PRN ×4 (05:31→19:22)
[2018-04-21] MEDS: METHYLPREDNISOLONE INJ 40 MG/1 ML SDV IV SCH ×2 (05:33→13:03)
[2018-04-21] MEDS ORDERED: PIPERACILLIN SODIUM/TAZOBACTAM 3.375 GM in NORMAL SALINE 100 ML IV SCH (10:00)
[2018-04-21] MEDS ORDERED: AZITHROMYCIN 250 MG TABLET PO SCH (10:00)
[2018-04-21] MEDS ORDERED: PROMETHAZINE HCL 25 MG TABLET PO PRN (10:36)
[2018-04-21] MEDS: GABAPENTIN 300 MG CAPSULE PO SCH ×3 (11:05→17:18)
[2018-04-21] MEDS: FLUOXETINE HCL 20 MG CAPSULE PO SCH (11:06)
[2018-04-21] MEDS: HEPARIN SOD (PORCINE) 5,000 UNIT/ML 1 ML SYRINGE SUBCUT SCH ×2 (11:06→21:32)
[2018-04-21] MEDS: FUROSEMIDE 20 MG TABLET PO SCH (11:06)
[2018-04-21] MEDS ORDERED: VANCOMYCIN HCL 1,500 MG in DEXTROSE 5%-WATER 250 ML IV SCH (12:00)
--- NOTE | 2018-04-21 14:29 | PDOC PROGRESS REPORT ---
Subjective Progress Note for:: 04/21/18 Subjective:: Mr. Vega is a 62 year old male with a past medical history of COPD not on home oxygen, history of congestive heart failure with recovered ejection fraction, history of CAD with prior stenting x2, hyperlipidemia, and chronic back pain with neuropathy who presented with productive cough, wheezing and shortness of breath. He was admitted for acute COPD exacerbation. No acute event overnight. Patient says that he feels much better today. He has been having productive cough. Denies chest pain or shortness of breath at the moment. He is currently saturating well on 2 L of nasal cannula. Reason For Visit: PNEUMONIA,COPD EXAC Physical Exam Vital Signs: Temp Pulse Resp BP Pulse Ox 98.1 F 77 20 102/58 L 83 L 04/21/18 12:11 04/21/18 13:41 04/21/18 13:41 04/21/18 12:11 04/21/18 13:41 Intake & Output 04/20/18 04/21/18 04/22/18 06:59 06:59 06:59 Intake Total 497 465 Balance 497 465 Weight 271 lb 2.697 oz General appearance: PRESENT: no acute distress, well-developed, well-nourished Head exam: PRESENT: atraumatic, normocephalic Eye exam: PRESENT: conjunctiva pink, EOMI, PERRLA. ABSENT: scleral icterus Ear exam: PRESENT: normal external ear exam Mouth exam: PRESENT: moist, tongue midline Neck exam: ABSENT: carotid bruit, JVD, lymphadenopathy, thyromegaly Respiratory exam: PRESENT: clear to auscultation jw. ABSENT: rales, rhonchi, wheezes Cardiovascular exam: PRESENT: RRR. ABSENT: diastolic murmur, rubs, systolic murmur Pulses: PRESENT: normal dorsalis pedis pul GI/Abdominal exam: PRESENT: normal bowel sounds, soft. ABSENT: distended, guarding, mass, organolmegaly, rebound, tenderness Rectal exam: PRESENT: deferred Neurological exam: PRESENT: alert, awake, oriented to person, oriented to place , oriented to time, oriented to situation, CN II-XII grossly intact. ABSENT: motor sensory deficit Results Laboratory Results: 04/20/18 04/21/18 04/21/18 20:50 00:45 03:00 Lactic Acid 5.0 H 2.2 H Urine Color STRAW Urine Appearance CLEAR Urine pH 5.0 Ur Specific [place] 1.005 Urine Protein NEGATIVE Urine Glucose (UA) NEGATIVE Urine Ketones NEGATIVE Urine Blood NEGATIVE Urine Nitrite NEGATIVE Ur Leukocyte Esterase NEGATIVE Urine WBC (Auto) 0 Urine RBC (Auto) 2 04/21/18 09:17 Lactic Acid 1.6 Urine Color Urine Appearance Urine pH Ur Specific [place] Urine Protein Urine Glucose (UA) Urine Ketones Urine Blood Urine Nitrite Ur Leukocyte Esterase Urine WBC (Auto) Urine RBC (Auto) 04/21/18 03:00 NT-Pro-B Natriuret Pep 1730 H Impressions: Chest X-Ray 04/20/18 16:17 IMPRESSION: Patchy left basilar consolidation. Mild increased interstitial markings bilaterally. No significant pleural effusion. Assessment & Plan - Diagnosis (1) Acute respiratory failure with hypoxia Is this a current diagnosis for this admission?: Yes Plan: Improved. This is secondary to COPD exacerbation and pneumonia. Patient is currently saturating well at 97% on 2 L of oxygen via nasal cannula. Will wean off from O2 today. (2) Sepsis Is this a current diagnosis for this admission?: Yes Plan: Sepsis secondary to left lower lobe pneumonia. Patient presented with tachycardia, hypoxia, fever, leukocytosis and lactic acidosis. Lactic acid has normalized. Cultures are pending. Will switch antibiotics to Levaquin. (3) Pneumonia Qualifiers: Pneumonia type: due to unspecified organism Laterality: left Lung location: lower lobe of lung Qualified Code(s): J18.1 - Lobar pneumonia, unspecified organism Is this a current diagnosis for this admission?: Yes Plan: Chest x-ray shows left lower lobe consolidation. Switch antibiotics to Levaquin. (4) COPD with acute exacerbation Is this a current diagnosis for this admission?: Yes Plan: Switch IV steroids to PO. Continue breathing treatments with DuoNeb. Antibiotics as mentioned for pneumonia. (5) CHF (congestive heart failure) Qualifiers: Heart failure type: diastolic Heart failure chronicity: acute on chronic Qualified Code(s): I50.33 - Acute on chronic diastolic (congestive) heart failure Is this a current diagnosis for this admission?: Yes Plan: Patient has history of congestive heart failure but has recovered ejection fraction with last echo showing a normal ejection fraction in October 2017. He does take Lasix at home. He does have chronic bipedal edema. Lactic acidosis has resolved. Resume Lasix at a lower dose. - Time Time Spent with patient: 15-24 minutes
[2018-04-21] MEDS: NICOTINE 14 MG/24 HR PATCH.TD24 TD PRN (16:06)
[2018-04-21] MEDS: PREDNISONE 20 MG TABLET PO SCH (17:17)
[2018-04-22] MEDS: OXYCODONE HCL IR 5 MG TABLET PO PRN ×4 (00:20→13:00)
[2018-04-22] MEDS: ALBUTEROL SULFATE HFA (90 MCG/PUFF) 200 PUFF/8.5 GM MDI IH PRN ×2 (01:43→05:58)
[2018-04-22] MEDS: IPRATROPIUM/ALBUTEROL 0.5-2.5 MG/3 ML AMPUL NEB SCH ×3 (01:50→13:47)
[2018-04-22] MEDS: PIPERACILLIN SODIUM/TAZOBACTAM 3.375 GM in NORMAL SALINE 100 ML IV SCH (02:57)
[2018-04-22] MEDS ORDERED: TRAZODONE HCL 50 MG TABLET PO PRN (05:34)
[2018-04-22] MEDS ORDERED: LEVOFLOXACIN 750 MG TABLET PO SCH (10:00)
[2018-04-22] MEDS: FLUOXETINE HCL 20 MG CAPSULE PO SCH (10:18)
[2018-04-22] MEDS: FUROSEMIDE 20 MG TABLET PO SCH (10:19)
[2018-04-22] MEDS: GABAPENTIN 300 MG CAPSULE PO SCH ×2 (10:19→14:28)
[2018-04-22] MEDS: PREDNISONE 20 MG TABLET PO SCH (10:19)
[2018-04-22] MEDS: HEPARIN SOD (PORCINE) 5,000 UNIT/ML 1 ML SYRINGE SUBCUT SCH (10:19)
[2018-04-22] MEDS: NICOTINE 14 MG/24 HR PATCH.TD24 TD PRN (10:35)
--- NOTE | 2018-04-22 11:46 | RADIOLOGY REPORT (SQ) ---
EXAM DESCRIPTION: CHEST SINGLE VIEW COMPLETED DATE/TIME: 04/22/2018 11:33 am REASON FOR STUDY: reassess LL pneumonia COMPARISON: CT angio chest 11/15/2017 Chest films 11/16/2017, 01/27/2018, 03/15/2018, 04/20/2018 EXAM PARAMETERS: NUMBER OF VIEWS: One view. TECHNIQUE: Single frontal radiographic view of the chest acquired. RADIATION DOSE: NA LIMITATIONS: None. FINDINGS: LUNGS AND PLEURA: No dense consolidation worrisome for pneumonia. Minimal increased interstitial markings at both lung bases left greater than right No pleural effusions. No pneumothorax. MEDIASTINUM AND HILAR STRUCTURES: No masses. Contour normal. HEART AND VASCULAR STRUCTURES: Stable mild cardiomegaly BONES: No acute findings. HARDWARE: None in the chest. OTHER: No other significant finding. IMPRESSION: Minimal chronic scarring at both lung bases. No acute finding TECHNICAL DOCUMENTATION: JOB ID: [id number] [employer]- All Rights Reserved Reading location - IP/workstation name: [email or web address]
--- NOTE | 2018-04-22 13:48 | PDOC DISCHARGE SUMMARY ---
General - Admit/Disc Date/PCP Admission Date/Primary Care Provider: 04/20/18 18:42 TOÑO RICE MD Discharge Date: 04/22/18 - Discharge Diagnosis (1) Acute respiratory failure with hypoxia Is this a current diagnosis for this admission?: Yes (2) Sepsis Is this a current diagnosis for this admission?: Yes (3) Pneumonia Is this a current diagnosis for this admission?: Yes (4) COPD with acute exacerbation Is this a current diagnosis for this admission?: Yes (5) CHF (congestive heart failure) Is this a current diagnosis for this admission?: Yes - Additional Information Prescriptions: Fluticasone/Salmeterol [Fluticasone-Salmeterol 113-14] 1 each IH Q12 #1 aer.pow.ba Furosemide [Lasix 80 mg Tablet] 80 mg PO DAILY #30 tablet Ipratropium/Albuterol Sulfate [Duoneb 3 ml Ampul] 3 ml NEB RTQ6HP PRN #30 vial.neb PRN Reason: For Wheezing Ipratropium/Albuterol Sulfate [Duoneb 3 ml Ampul] 3 ml NEB RTQ6 #30 vial.neb Levofloxacin [Levaquin 750 mg Tablet] 750 mg PO DAILY 6 Days #6 tablet Nicotine [Nicoderm 14 mg/24 Hr Transdermal Patch] 1 each TD DAILYP PRN #30 patch.td24 PRN Reason: Prednisone [Deltasone 20 mg Tablet] 40 mg PO BID 5 Days #10 tablet Tiotropium [place] [Spiriva Handihaler 5 Cap/Kit (18 Mcg/Cap)] 1 cap IH DAILY # 5 capsule Home Medications: Albuterol Sulfate [Proair HFA Inhalation Aerosol 8.5 gm MDI] 2 puff IH Q4HP PRN 04/21/18 Fluoxetine HCl [Prozac] 40 mg PO DAILY 04/21/18 Gabapentin [Neurontin] 600 mg PO TID 04/21/18 Iron Polysaccharide Complex [Ferrex 150] 150 mg PO DAILY 04/21/18 Oxycodone HCl [Oxycodone HCl 10 MG Tablet] 10 mg PO Q4HP PRN 04/21/18 Promethazine HCl [Phenergan 25 mg Tablet] 25 mg PO TIDP PRN 04/21/18 Fluticasone/Salmeterol [Fluticasone-Salmeterol 113-14] 1 each IH Q12 #1 aer.pow.ba 04/22/18 Furosemide [Lasix 80 mg Tablet] 80 mg PO DAILY #30 tablet 04/22/18 Ipratropium/Albuterol Sulfate [Duoneb 3 ml Ampul] 3 ml NEB RTQ6 #30 vial.neb Ipratropium/Albuterol Sulfate [Duoneb 3 ml Ampul] 3 ml NEB RTQ6HP PRN #30 vial.neb 04/22/18 Levofloxacin [Levaquin 750 mg Tablet] 750 mg PO DAILY 6 Days #6 tablet 04/22/18 Nicotine [Nicoderm 14 mg/24 Hr Transdermal Patch] 1 each TD DAILYP PRN #30 patch.td24 04/22/18 Prednisone [Deltasone 20 mg Tablet] 40 mg PO BID 5 Days #10 tablet 04/22/18 Tiotropium [place] [Spiriva Handihaler 5 Cap/Kit (18 Mcg/Cap)] 1 cap IH DAILY # 5 capsule 04/22/18 History of Present Illness History of Present Illness: WILLIE RUBI is a 62 year old male with a past medical history of COPD not on home oxygen, history of congestive heart failure with recovered ejection fraction, history of CAD with prior stenting x2, hyperlipidemia, and chronic back pain with neuropathy who presented with productive cough, wheezing and shortness of breath. Patient says that he has been having productive cough with yellowish sputum production in the past 2-3 days. He said that earlier this afternoon he developed wheezing and progressive shortness of breath at home. He does complain of subjective fever at home. He denies chills. He denies recent sick contacts or travel. He denies chest pain, dizziness, or palpitations. Upon arrival in the ER, patient was noted to have bilateral wheezing. He was hypoxic at 88% on room air. He is not on home O2 yet. He was given breathing treatments and he did report improvement in breathing status after the breathing treatments. His chest x-ray showed pneumonia with left lower lobe consolidation. He also was noted to have lactic acidosis. Hospital Course Hospital Course: Mr. Rubi is a 62 year old male with a past medical history of COPD not on home oxygen, history of congestive heart failure with recovered ejection fraction, history of CAD with prior stenting x2, hyperlipidemia, and chronic back pain with neuropathy who presented with productive cough, wheezing and shortness of breath. Patient has history of congestive heart failure but has recovered ejection fraction with last echo showing a normal ejection fraction in October 2017. He does take Lasix at home. He was admitted for pneumonia and acute COPD exacerbation. Patient presented with tachycardia, hypoxia, fever, leukocytosis and lactic acidosis. He as initially placed on 6L of nasal cannula. He did have relief from the breathing treatments in the ER. Chest x-ray shows left lower lobe consolidation. He was initially started on IV broad spectrum antibiotics and IV steroids. Patient did clinically improve and felt better. Repat chest x-ray did show resolution of the left lower lobe infiltrates. He qualified for home oxygen and this will be set up with caser up's assistance. He will be sent home on 6 more days of Levaquin and oral steroids. He will also be started on Spiriva and Advair as he only has albuterol prn inhaler at home. He says he missed a new appt with a recorder helper seismograph and will reschedule it when he gets home. Physical Exam Vital Signs: Temp Pulse Resp BP Pulse Ox 98.7 F 83 16 104/71 99 04/22/18 11:20 04/22/18 11:20 04/22/18 11:20 04/22/18 11:20 04/22/18 11:20 Intake & Output 04/21/18 04/22/18 04/23/18 06:59 06:59 06:59 Intake Total 497 1368 237 Balance 497 1368 237 Weight 271 lb 2.697 oz General appearance: PRESENT: no acute distress, well-developed, well-nourished Head exam: PRESENT: atraumatic, normocephalic Eye exam: PRESENT: conjunctiva pink, EOMI, PERRLA. ABSENT: scleral icterus Ear exam: PRESENT: normal external ear exam Mouth exam: PRESENT: moist, tongue midline Neck exam: ABSENT: carotid bruit, JVD, lymphadenopathy, thyromegaly Respiratory exam: PRESENT: clear to auscultation jw, rhonchi - occasional rhonchi on the right base. ABSENT: rales, wheezes Cardiovascular exam: PRESENT: RRR. ABSENT: diastolic murmur, rubs, systolic murmur Pulses: PRESENT: normal dorsalis pedis pul GI/Abdominal exam: PRESENT: normal bowel sounds, soft. ABSENT: distended, guarding, mass, organolmegaly, rebound, tenderness Rectal exam: PRESENT: deferred Neurological exam: PRESENT: alert, awake, oriented to person, oriented to place , oriented to time, oriented to situation, CN II-XII grossly intact. ABSENT: motor sensory deficit Results Laboratory Results: 04/21/18 07:35 Sputum Gram Stain - Final 04/21/18 07:35 Sputum Sputum Culture - Final 04/21/18 03:00 NT-Pro-B Natriuret Pep 1730 H Impressions: Chest X-Ray 04/22/18 00:00 IMPRESSION: Minimal chronic scarring at both lung bases. No acute finding Qualifiers - * PATIENT BEING DISCHARGED WITH ANY OF THE FOLLOWING DIAGNOSIS: No
[2018-04-22 14:10] VITALS: BP 103/53
== END 2018-04-22 15:00 | disposition home or self-care (01) | DRG 871 ==
LOC: ER 15:51 → EH 18:42 → 3W 21:17
PROVIDERS: ADMIT Internal Medicine; ATTEND Internal Medicine
DX: A41.9 Sepsis, unspecified organism (principal); J18.9 Pneumonia, unspecified organism; J96.01 Acute respiratory failure with hypoxia; I50.33 Acute on chronic diastolic (congestive) heart failure; J44.1 Chronic obstructive pulmonary disease with (acute) exacerbation; I11.0 Hypertensive heart disease with heart failure; I25.10 Atherosclerotic heart disease of native coronary artery without angina pectoris; E78.5 Hyperlipidemia, unspecified; E11.40 Type 2 diabetes mellitus with diabetic neuropathy, unspecified; M54.9 Dorsalgia, unspecified; G89.29 Other chronic pain; F17.210 Nicotine dependence, cigarettes, uncomplicated; K21.9 Gastro-esophageal reflux disease without esophagitis; F43.10 Post-traumatic stress disorder, unspecified; Z95.5 Presence of coronary angioplasty implant and graft; Z90.49 Acquired absence of other specified parts of digestive tract; Z98.84 Bariatric surgery status; Z79.899 Other long term (current) drug therapy; Z82.49 Family history of ischemic heart disease and other diseases of the circulatory system; Z23 Encounter for immunization
CPT/HCPCS: 36415; 71045; 80053; 81001; 82550; 82553; 83605; 83880; 84484; 85025; 87040; 87070; 87205; 90686; 93005; 93010; 94799; 99291; J1644; J1956; J2543; J2920; J3370; J3490; J7030; J7060; J7512; J7620

== ENCOUNTER 2019-05-20 15:18 | Inpatient (IN) | payer MEDICARE, OTHER ==
--- NOTE | 2019-05-20 15:50 | ER Document Report ---
ED Medical Screen (RME) - General Chief Complaint: Abnormal Lab Results Stated Complaint: ABNORMAL LABS Time Seen by Provider: 05/20/19 15:25 Primary Care Provider: TOÑO RICE MD [Primary Care Provider] - Follow up as needed TRAVEL OUTSIDE OF THE [place] IN LAST 30 DAYS: No - HPI Notes: 05/20/19 15:50 63-year-old male to the emergency department with complaints of abnormal lab results. He was sent from his primary care physician for complaints of potassium of 2.0, sodium of 122, chloride is 61, CO2 of 48. He is a patient he continues to smoke is on 3 L of oxygen continuously. For the past week he has been feeling progressively worse. He states that he feels weak and confused. He states that he feels dizzy. He denies any chest pain or shortness of breath. He states that he is in a water pill but not any potassium supplements. He is also in pain management and has a nerve stimulator. He states that he forgot to bring his remote to turn his stimulator off. I performed a brief medical screening exam on this patient and determined that this patient needs further evaluation and management from [facility] ER provider. I have ordered labs and imaging studies as indicated to aid in expediting the patient's care. - Related Data Allergies/Adverse Reactions: No Known Allergies Allergy (Verified 01/27/18 08:19) Past Medical History - Social History Chew tobacco use (# tins/day): No Frequency of alcohol use: None Drug Abuse: None - Past Medical History Cardiac Medical History: Reports: Hx Congestive Heart Failure, Hx Coronary Artery Disease, Hx Heart Attack Denies: Hx Atrial Fibrillation, Hx Hypercholesterolemia, Hx Hypertension Pulmonary Medical History: Reports: Hx COPD, Hx Pneumonia Denies: Hx Asthma, Hx Bronchitis, Hx Tuberculosis Neurological Medical History: Denies: Hx Seizures, Hx Parkinson's Disease Endocrine Medical History: Denies: Hx Diabetes Mellitus Type 1, Hx Diabetes Mellitus Type 2 Renal/ Medical History: Reports: Hx Kidney Stones. Denies: Hx End Stage Renal Disease, Hx Peritoneal Dialysis GI Medical History: Reports: Hx Gastroesophageal Reflux Disease, Hx Ulcer. Denies: Hx Hiatal Hernia Musculoskeltal Medical History: Denies Hx Arthritis, Denies Hx Systemic Lupus Erythematosus Psychiatric Medical History: Reports: Hx Post Traumatic Stress Disorder Denies: Hx Bipolar Disorder, Hx Depression, Hx Schizophrenia Past Surgical History: Reports: Hx Abdominal Surgery - surgery to repair gastric bypass x2, Hx Appendectomy - 2002, Hx Cardiac Catheterization, Hx Cardiac Surgery - two stents, Hx Cholecystectomy - 2008, Hx Coronary Stent - x2, Hx Gastric Bypass Surgery. Denies: Hx Bowel Surgery, Hx Tonsillectomy - Immunizations Hx Diphtheria, Pertussis, Tetanus Vaccination: Yes Physical Exam - Vital signs Vitals: Temp Pulse Resp BP Pulse Ox 98.2 F 70 18 99/67 L 93 05/20/19 15:24 05/20/19 15:24 05/20/19 15:24 05/20/19 15:24 05/20/19 15:24 Course - Vital Signs Vital signs: Temp Pulse Resp BP Pulse Ox 98.2 F 70 18 99/67 L 93 05/20/19 15:24 05/20/19 15:24 05/20/19 15:24 05/20/19 15:24 05/20/19 15:24 Doctor's Discharge - Discharge Referrals: TOÑO RICE MD [Primary Care Provider] - Follow up as needed
--- NOTE | 2019-05-20 16:36 | RADIOLOGY REPORT (SQ) ---
EXAM DESCRIPTION: CHEST SINGLE VIEW COMPLETED DATE/TIME: 05/20/2019 4:04 pm REASON FOR STUDY: confusion/weakness COMPARISON: PA and lateral views of the chest from 05/20/2019. EXAM PARAMETERS: NUMBER OF VIEWS: One view. TECHNIQUE: Single frontal radiographic view of the chest acquired. RADIATION DOSE: NA LIMITATIONS: None. FINDINGS: LUNGS AND PLEURA: Patchy opacities in the left retrocardiac space. The left lateral costo phrenic sulcus is blunted. There is no pneumothorax. MEDIASTINUM AND HILAR STRUCTURES: Stable mediastinal and hilar contours. HEART AND VASCULAR STRUCTURES: The cardiac silhouette is enlarged. The pulmonary vasculature is with in normal limits. BONES: No acute findings. HARDWARE: Spinal stimulator in place. OTHER: No other finding. IMPRESSION: Patchy opacities in the left retrocardiac space that could represent atelectasis or pneu monia. TECHNICAL DOCUMENTATION: JOB ID: [id number] [employer]- All Rights Reserved Reading location - IP/workstation name: [email or web address]
--- NOTE | 2019-05-20 16:46 | ER Document Report ---
ED General - General Chief Complaint: Abnormal Lab Results Stated Complaint: ABNORMAL LABS Time Seen by Provider: 05/20/19 15:25 Primary Care Provider: TOÑO RICE MD [Primary Care Provider] - Follow up as needed Notes: HPI: 63-year-old male with past medical history as recorded who went to see his primary care physician yesterday secondary to some body aches and cramping for around 10 days and he was called today to state that his potassium and his sodium were very low. Patient does take Lasix. He denies any potassium supplementation. Patient denies any headache, neck pain, cough, chest pain, shortness of breath above baseline. No calf pain, leg swelling, or fevers. Patient is on nasal cannula at baseline at home. ROS: See HPI All other review of systems reviewed and otherwise negative Reviewed vital signs and nursing note as charted by RN. PHYSICAL EXAM: CONSTITUTIONAL: Alert and oriented and responds appropriately to questions. Well-appearing; well-nourished HEAD: Normocephalic; atraumatic EYES: PERRL; Conjunctivae clear, sclerae non-icteric CARD: Regular rate and rhythm; no murmurs; symmetric distal pulses RESP: Normal chest excursion without splinting or tachypnea; breath sounds clear and equal bilaterally; no wheezes, no rhonchi, no rales ABD/GI: Normal bowel sounds; non-distended; soft, non-tender; no palpable organomegaly or masses BACK: The back appears normal and is non-tender to palpation EXT: Normal ROM in all joints; non-tender to palpation; no edema SKIN: No acute lesions noted NEURO: CN 2-12 intact; 5/5 bilateral upper and lower extremity strength with se nsation intact to light touch PSYCH: The patient's mood and manner are appropriate. Grooming and personal hygiene are appropriate. TRAVEL OUTSIDE OF THE [place] IN LAST 30 DAYS: No - Related Data Allergies/Adverse Reactions: No Known Allergies Allergy (Verified 01/27/18 08:19) Past Medical History - Social History Smoking Status: Current Every Day Smoker Chew tobacco use (# tins/day): No Frequency of alcohol use: None Drug Abuse: None Family History: Reviewed & Not Pertinent, Hypertension Patient has suicidal ideation: No Patient has homicidal ideation: No - Past Medical History Cardiac Medical History: Reports: Hx Congestive Heart Failure, Hx Coronary Artery Disease, Hx Heart Attack Denies: Hx Atrial Fibrillation, Hx Hypercholesterolemia, Hx Hypertension Pulmonary Medical History: Reports: Hx COPD, Hx Pneumonia Denies: Hx Asthma, Hx Bronchitis, Hx Tuberculosis Neurological Medical History: Denies: Hx Seizures, Hx Parkinson's Disease Endocrine Medical History: Denies: Hx Diabetes Mellitus Type 1, Hx Diabetes Mellitus Type 2 Renal/ Medical History: Reports: Hx Kidney Stones. Denies: Hx End Stage Renal Disease, Hx Peritoneal Dialysis GI Medical History: Reports: Hx Gastroesophageal Reflux Disease, Hx Ulcer. Denies: Hx Hiatal Hernia Musculoskeletal Medical History: Denies Hx Arthritis, Denies Hx Systemic Lupus Erythematosus Psychiatric Medical History: Reports: Hx Post Traumatic Stress Disorder Denies: Hx Bipolar Disorder, Hx Depression, Hx Schizophrenia Past Surgical History: Reports: Hx Abdominal Surgery - surgery to repair gastric bypass x2, Hx Appendectomy - 2002, Hx Cardiac Catheterization, Hx Cardiac Surgery - two stents, Hx Cholecystectomy - 2008, Hx Coronary Stent - x2, Hx Gastric Bypass Surgery. Denies: Hx Bowel Surgery, Hx Tonsillectomy - Immunizations Hx Diphtheria, Pertussis, Tetanus Vaccination: Yes Hx Pneumococcal Vaccination: 12/13/11 Physical Exam - Vital signs Vitals: Temp Pulse Resp BP Pulse Ox 98.2 F 70 18 99/67 L 93 05/20/19 15:24 05/20/19 15:24 05/20/19 15:24 05/20/19 15:24 05/20/19 15:24 Course - Re-evaluation Re-evalutation: 05/20/19 16:46 Given the history and physical we will place the patient on the monitor and obtain electrolytes including sodium, potassium, magnesium levels. Anticipate replacement. Patient does take Lasix without with supplementation. No fevers, vomiting, or diarrhea. 05/20/19 16:52 EKG shows heart of 67, normal sinus rhythm, left anterior fascicular block, no obvious ST elevation or depression. Slightly prolonged QT interval 05/20/19 17:54 Patient's electrolyte as recorded. Possible U waves on EKG. We will replace the magnesium, potassium, and provide normal saline for sodium replacement. I will initially add a urine osmolality and a urine sodium level. - Vital Signs Vital signs: Temp Pulse Resp BP Pulse Ox 98.2 F 70 18 99/67 L 93 05/20/19 15:24 05/20/19 15:24 05/20/19 15:24 05/20/19 15:24 05/20/19 15:24 - Laboratory Result Diagrams: 05/20/19 16:50 05/20/19 16:50 Laboratory results interpreted by me: 05/20/19 16:50 Sodium 122.5 L Potassium 1.8 L* Chloride 61 L Carbon Dioxide 47 H* Magnesium 2.4 H Alkaline Phosphatase 167 H Critical Care Note - Critical Care Note Total time excluding time spent on procedures (mins): 35 Discharge - Discharge Clinical Impression: Hypokalemia, Hypomagnesemia, Hyponatremia Condition: Serious Disposition: ADMITTED INPATIENT Admitting Provider: Jacob (Hospitalist) Unit Admitted: IMCU Referrals: TOÑO RICE MD [Primary Care Provider] - Follow up as needed
[2019-05-20 17:12] LABS: ABSOLUTE BASOPHILS # (AUTO) 0.1 10^3/uL (0.0-0.2); ABSOLUTE EOSINOPHILS # (AUTO) 0.2 10^3/uL (0.0-0.6); ABSOLUTE LYMPHOCYTES (AUTO) 3.3 10^3/uL (0.5-4.7); ABSOLUTE MONOCYTES (AUTO) 0.6 10^3/uL (0.1-1.4); ABSOLUTE NEUT (AUTO) 3.9 10^3/uL (1.7-8.2); BASOPHILS % (AUTO) 1.2 % (0-2); EOSINOPHILS % (AUTO) 2.6 % (0-6); HEMATOCRIT 40.2 % (37.9-51.0); LYMPHOCYTES % (AUTO) 40.5 % (13-45); MEAN CORPUSCULAR HEMOGLOBIN 29.6 pg (27.0-33.4); MEAN CORPUSCULAR HGB CONC 34.9 g/dL (32.0-36.0); MEAN CORPUSCULAR VOLUME 85 fl (80-97); MONOCYTES % (AUTO) 7.9 % (3-13); PLATELET COUNT 214 10^3/uL (150-450); RED BLOOD COUNT 4.74 10^6/uL (4.35-5.55); RED CELL DISTRIBUTION WIDTH 13.7 % (11.5-14.0); SEGMENTED NEUTROPHILS % (AUTO) 47.8 % (42-78); TOTAL CELLS COUNTED % (AUTO) 100 %; WHITE BLOOD COUNT 8.2 10^3/uL (4.0-10.5)
[2019-05-20 17:15] LABS: INTERNATIONAL RATION (INR) 1.16; PROTHROMBIN TIME 14.9 SEC (11.4-15.4)
[2019-05-20 17:16] LABS: PARTIAL THROMBOPLASTIN TIME 29.2 SEC (23.5-35.8)
[2019-05-20 17:29] LABS: ALBUMIN 4.4 g/dL (3.5-5.0); ALKALINE PHOSPHATASE 167 U/L (38-126); ASPARTATE AMINO TRANSFERASE 35 U/L (17-59); BILIRUBIN,DIRECT 0.1 mg/dL (0.0-0.4); BLOOD UREA NITROGEN 14 mg/dL (7-20); CHLORIDE 61 mmol/L (98-107); GLUCOSE 104 mg/dL (75-110); TOTAL PROTEIN 8.2 g/dL (6.3-8.2)
[2019-05-20 17:46] LABS: ANION GAP 15 (5-19)
[2019-05-20 17:48] LABS: CARBON DIOXIDE 47 mmol/L (22-30); POTASSIUM 1.8 mmol/L (3.6-5.0)
[2019-05-20] MEDS ORDERED: NORMAL SALINE 1000 ML 1,000 ML IV ONE (17:50)
[2019-05-20] MEDS ORDERED: POTASSI CL 20 MEQ/50 ML RIDER 20 MEQ/50 ML RTUPB IV SCH (18:00)
[2019-05-20 18:06] LABS: ARTERIAL BLOOD H2CO3 1.45 mmol/L (1.05-1.35); ARTERIAL BLOOD HCO3 48.7 mmol/L (20-24); ARTERIAL BLOOD O2 SATURATION 94.9 % (94-98); ARTERIAL BLOOD PCO2 48.3 mmHg (35-45); ARTERIAL BLOOD PO2 62.5 mmHg (80-100); ARTERIAL BLOOD TOTAL CO2 50.1 mmol/L (23-27)
[2019-05-20 18:07] LABS: ARTERIAL BLOOD FIO2 2 L
[2019-05-20 18:09] LABS: ARTERIAL BLOOD PH 7.62 (7.35-7.45)
[2019-05-20] MEDS: MAGNESIUM SULFATE/D5W 1 GM/100 ML RTUPB IV SCH ×2 (18:26→19:51)
[2019-05-20] MEDS ORDERED: MAG HYDROX/AL HYDROX/SIMETH SUSP 30 ML UDCUP PO PRN (18:44)
[2019-05-20] MEDS ORDERED: ACETAMINOPHEN 325 MG TABLET PO PRN (18:44)
[2019-05-20] MEDS ORDERED: MAGNESIUM HYDROXIDE SUSP 30 ML UDCUP PO PRN (18:44)
[2019-05-20] MEDS ORDERED: ALBUTEROL SULFATE 0.083% NEB 2.5 MG/3 ML AMPUL NEB PRN (18:44)
[2019-05-20] MEDS ORDERED: OXYCODONE HCL IR 5 MG TABLET PO ONE (19:00)
[2019-05-20] MEDS ORDERED: NITROGLYCERIN 0.4 MG/TAB 25 TAB/BOTTLE SL PRN (19:03)
--- NOTE | 2019-05-20 19:31 | PDOC H&P ---
History of Present Illness Admission Date/PCP: 05/20/19 18:18 TOÑO RICE MD Patient complains of: Patient has been feeling weak, achy and of late having muscle cramps. History of Present Illness: WILLIE RUBI is a 63 year old male who was instructed to proceed to the emergency room by his primary care physician Dr. Rice for electrolyte abnormalities. The patient had been feeling achy and weak since May 08. He was in his primary care provider's office to get a flu shot at that time. At first he thought it was the flu shot. Unfortunately he continued to get weaker and then several days ago started having crampy pain in his muscles. It was diffuse/systemic. He had been on diuretics for lower extremity edema and his history of congestive heart failure. He does have underlying oxygen dependent chronic obstructive pulmonary disease. He also has chronic back pain and is on a regimen of oxycodone, levorphanol and gabapentin. With the severe electrolyte abnormalities the patient was initiated on electrolyte replacement and referred to the hospitalist for admission. Past Medical History Cardiac Medical History: Reports: Congestive Heart Failure, Coronary Artery Disease, Myocardial Infarction Denies: Atrial Fibrillation, Hyperlipidema, Hypertension Pulmonary Medical History: Reports: Chronic Obstructive Pulmonary Disease (COPD), Pneumonia Denies: Asthma, Bronchitis, Tuberculosis Neurological Medical History: Denies: Seizures Endocrine Medical History: Denies: Diabetes Mellitus Type 1, Diabetes Mellitus Type 2 Renal/ Medical History: Denies: End Stage Renal Disease Malignancy Medical History: Denies: Breast Cancer, Cervical Cancer, Ovarian Cancer GI Medical History: Reports: Gastroesophageal Reflux Disease Denies: Hiatal Hernia Musculoskeltal Medical History: Denies: Arthritis Psychiatric Medical History: Reports: Post Traumatic Stress Disorder Denies: Bipolar Disorder, Depression Hematology: Reports: Anemia - currently Denies: Hemophilia, Sickle Cell Disease Past Surgical History Past Surgical History: Reports: Appendectomy - 2003, Cardiac Catheterization, Cholecystectomy - 2009, Coronary Stent - x2, Gastric Bypass Surgery Denies: Tonsillectomy Social History Information Source: Patient, [facility] Records Lives with: Family Smoking Status: Current Every Day Smoker Cigarettes Packs Per Day: 1 Electronic Cigarette use?: No Frequency of Alcohol Use: None Hx Recreational Drug Use: No Drugs: None Hx Prescription Drug Abuse: No - Advance Directive Resuscitation Status: Do Not Resuscitate Family History Family History: CAD, Hypertension, Other - Seizure disorder Parental Family History Reviewed: Yes Children Family History Reviewed: Yes Sibling(s) Family History Reviewed.: Yes Medication/Allergy Home Medications: Gabapentin [Neurontin] mg PO 04/21/18 Oxycodone HCl [Oxycodone HCl 10 MG Tablet] 10 mg PO Q4HP PRN 04/21/18 Promethazine HCl [Phenergan 25 mg Tablet] 25 mg PO TIDP PRN 04/21/18 Furosemide [Lasix 80 mg Tablet] 80 mg PO DAILY #30 tablet 04/22/18 Atorvastatin Calcium [Lipitor 40 mg Tablet] 40 mg PO QHS 05/20/19 Levorphanol Tartrate 2 mg PO Q8HP PRN 05/20/19 Metolazone [Zaroxolyn 5 mg Tablet] 5 mg PO DAILY 05/20/19 Nitroglycerin 1 tab PO Q5MP PRN 05/20/19 Pantoprazole Sodium [Protonix [address] Tablet] 40 mg PO QAM 05/20/19 Thiamine HCl [Vitamin B-1] 250 mg PO DAILY 05/20/19 Zolpidem Tartrate [Ambien] 10 mg PO QHS 05/20/19 Allergies/Adverse Reactions: No Known Allergies Allergy (Verified 01/27/18 08:19) Review of Systems Constitutional: PRESENT: anorexia, fatigue, weakness - Systemic. ABSENT: fever(s), headache(s), night sweats Eyes: ABSENT: visual disturbances Ears: ABSENT: hearing changes Nose, Mouth, and Throat: ABSENT: headache(s), mouth pain, sore throat Cardiovascular: PRESENT: edema - Bilateral lower extremities. ABSENT: chest pain, palpitations Respiratory: ABSENT: cough, dyspnea, sputum Gastrointestinal: PRESENT: constipation. ABSENT: abdominal pain, coffee ground emesis, diarrhea, hematemesis, nausea, vomiting Genitourinary: ABSENT: dysuria, hematuria Musculoskeletal: PRESENT: back pain, muscle weakness. ABSENT: joint swelling Integumentary: ABSENT: erythema, pruritus, rash, wounds Neurological: PRESENT: weakness. ABSENT: abnormal speech, confusion, convulsions, memory loss, syncope Psychiatric: PRESENT: other - Posttraumatic stress syndrome. ABSENT: anxiety, depression Endocrine: ABSENT: cold intolerance, heat intolerance, polydipsia, polyphagia, polyuria Hematologic/Lymphatic: ABSENT: easy bleeding, easy bruising, lymphadenopathy Allergic/Immunologic: ABSENT: seasonal rhinorrhea Physical Exam Vital Signs: Temp Pulse Resp BP Pulse Ox 98.2 F 70 15 142/94 H 95 05/20/19 15:24 05/20/19 15:24 05/20/19 18:31 05/20/19 18:31 05/20/19 18:31 Intake & Output 05/19/19 05/20/19 05/21/19 06:59 06:59 06:59 Weight 90.91 kg General appearance: PRESENT: cooperative, mild distress - Mild to moderate distress secondary to pain, well-developed Head exam: PRESENT: atraumatic, normocephalic Eye exam: PRESENT: conjunctival injection, conjunctiva pink. ABSENT: scleral icterus Ear exam: PRESENT: normal external ear exam. ABSENT: bleeding, drainage Mouth exam: PRESENT: moist, tongue midline Teeth exam: ABSENT: poor dentation Neck exam: ABSENT: carotid bruit, JVD, lymphadenopathy, thyromegaly Respiratory exam: PRESENT: clear to auscultation jw - With congested breath sounds, symmetrical, unlabored. ABSENT: accessory muscle use, rales, rhonchi, tachypnea, wheezes Cardiovascular exam: PRESENT: RRR, +S1, +S2 GI/Abdominal exam: PRESENT: soft. ABSENT: distended, guarding, tenderness Rectal exam: PRESENT: deferred Gentrourinary exam: ABSENT: indwelling catheter Extremities exam: PRESENT: +1 edema, other - Generalized muscle tenderness Musculoskeletal exam: PRESENT: ambulatory, normal inspection - Except the edema Neurological exam: PRESENT: alert, awake, oriented to person, oriented to place, oriented to time, oriented to situation, CN II-XII grossly intact. ABSENT: motor sensory deficit Psychiatric exam: PRESENT: flat affect. ABSENT: agitated, anxious Focused psych exam: ABSENT: delusional, restlessness Skin exam: PRESENT: dry, warm. ABSENT: rash Results Laboratory Results: 05/20/19 16:50 05/20/19 16:50 05/20/19 05/20/19 05/20/19 16:50 16:50 17:35 WBC 8.2 RBC 4.74 Hgb 14.0 Hct 40.2 MCV 85 MCH 29.6 MCHC 34.9 RDW 13.7 Plt Count 214 Seg Neutrophils % 47.8 Carbonic Acid 1.45 H HCO3/H2CO3 Ratio 33:1 ABG pH 7.62 H* ABG pCO2 48.3 H ABG pO2 62.5 L ABG HCO3 48.7 H ABG O2 Saturation 94.9 ABG Base Excess 24.0 FiO2 2 L Sodium 122.5 L Potassium 1.8 L* Chloride 61 L Carbon Dioxide 47 H* Anion Gap 15 BUN 14 Creatinine 0.78 Est GFR ( Amer) > 60 Glucose 104 Calcium 9.0 Magnesium 2.4 H Total Bilirubin 1.0 AST 35 Alkaline Phosphatase 167 H Total Protein 8.2 Albumin 4.4 05/20/19 16:50 Troponin I < 0.012 Impressions: Chest X-Ray 05/20/19 15:43 IMPRESSION: Patchy opacities in the left retrocardiac space that could rep resent atelectasis or pneumonia. Assessment and Plan - Diagnosis (1) Hypokalemia Is this a current diagnosis for this admission?: Yes Plan: 05/20/2019-likely secondary to diuretic therapy. We will replete the potassium. This will also help the metabolic alkalosis. Serial chemistries to monitor correction. (2) Hyponatremia Is this a current diagnosis for this admission?: Yes Plan: 05/20/2019-likely secondary to diuretic use. Will infuse normal saline and monitor the correction. We will adjust IV fluids accordingly. He will be on a 1 L oral fluid restriction and I will hold his diuretics today. With his hi story of diastolic heart failure I will monitor his intake and output and likely start low-dose diuretics tomorrow. If necessary we can decrease the IV fluid and enforce a stricter fluid restriction. (3) Metabolic alkalosis Is this a current diagnosis for this admission?: Yes Plan: 05/20/2019-secondary to diuretic use. Will monitor as we correct the electrolytes. Will recheck a blood gas tomorrow. Will consider Aceta Sulamyd based on tomorrow's blood gas and serum chemistry results. (4) CHF (congestive heart failure) Qualifiers: Heart failure type: diastolic Heart failure chronicity: chronic Qualified Code(s): I50.32 - Chronic diastolic (congestive) heart failure Is this a current diagnosis for this admission?: Yes Plan: 05/20/2019-the patient has a history of chronic diastolic heart failure. We will need to monitor his intake and output. I am going to hold his furosemide and metolazone for today and reassess tomorrow. As noted above we must be mindful of the saline infusion to correct the hyponatremia. We may have to decrease the IV fluids and enforce a stricter fluid restriction. (5) Coronary artery disease Qualifiers: Coronary Disease-Associated Artery/Lesion type: [place] artery Is this a current diagnosis for this admission?: Yes Plan: 05/20/2019-the patient has a history of coronary disease. Unfortunately he still smokes. We will continue his statin therapy. We are holding the diuretics as noted above. Consider initiating an CRISTA inhibitor or angiotensin receptor elidia as well as low-dose beta-elidia. Also consider initiating enteric-coated aspirin 81 mg daily keeping in mind his history of reflux and gastritis. (6) GERD (gastroesophageal reflux disease) Qualifiers: Esophagitis presence: without esophagitis Qualified Code(s): K21.9 - Gastro-esophageal reflux disease without esophagitis Is this a current diagnosis for this admission?: Yes Plan: 05/20/2019-continue Protonix 30 mg daily. (7) Tobacco dependence Is this a current diagnosis for this admission?: Yes Plan: 05/20/2019-I have ordered a nicotine patch daily. We discussed the patient's absolute need to stop smoking. His family is supportive of this. (8) Chronic narcotic dependence Is this a current diagnosis for this admission?: Yes Plan: 05/20/2019-the patient is on oxycodone and levorphanol. He actually breaks his oxycodone tablets in half and takes 5 mg every 4 hours instead of 10 mg every 6 hours. His total dose is 30 mg instead of 40 mg. He also takes the levorphanol twice daily. This is not on formulary and we may need to use his supply. (9) Chronic back pain Qualifiers: Back pain location: low back pain Back pain laterality: midline Sciatica presence: with sciatica Sciatica laterality: bilateral sciatica Qualified Code(s): M54.41 - Lumbago with sciatica, right side; M54.42 - Lumbago with sciatica, left side; G89.29 - Other chronic pain Is this a current diagnosis for this admission?: Yes Plan: 05/20/2019-as noted above we will continue the oxycodone as well as his gabapentin. Despite the 600 mg tablets the patient takes 300 mg 4 times a day. - Time Time Spent with patient: 35 or more minutes Smoking Cessation Education: 3 to 10 minutes Medications reviewed and adjusted accordingly: Yes Anticipated discharge: Home with Homehealth - Inpatient Certification Based on my medical assessment, after consideration of the patient's comorbidities, presenting symptoms, or acuity I expect that the services needed warrant INPATIENT care.: Yes I certify that my determination is in accordance with my understanding of Medicare's requirements for reasonable and necessary INPATIENT services [42 CFR 412.3e].: Yes Medical Necessity: Need For IV Fluids, Need For Continuous Telemetry Monitoring, Need for Nebulizer Therapy and Monitoring of Response, Need for Pain Control Post Hospital Care: D/C Clicker Operator Documentation
--- NOTE | 2019-05-20 19:34 | ADVANCED CARE ---
- Diagnosis (1) Hypokalemia Diagnosis Current: Yes (2) Hyponatremia Diagnosis Current: Yes (3) Metabolic alkalosis Diagnosis Current: Yes (4) CHF (congestive heart failure) Diagnosis Current: Yes (5) Coronary artery disease Diagnosis Current: Yes (6) GERD (gastroesophageal reflux disease) Diagnosis Current: Yes (7) Tobacco dependence Diagnosis Current: Yes (8) Chronic narcotic dependence Diagnosis Current: Yes (9) Chronic back pain Diagnosis Current: Yes Attendance: Discussion was held at the bedside with the patient and his daughter. Resuscitation Status: Do Not Resuscitate Discussion: When we reviewed the resuscitation status the patient was clear that he did not want resuscitative efforts. I could tell by the daughter's expression that she was shocked by this. Because of this we spent some time going over the difference between comfort measures, DNR and full code. I explained that the DO NOT RESUSCITATE only comes into effect in the event of a catastrophic issue. With his history of heart disease and lung disease it would be very difficult for him to survive a cardiac arrest and he would be subject to the brutality of CPR, intubation and possibly defibrillation. This did seem to ease her mind somewhat but not completely. The patient however was clear about his wishes. Care Planning Goals: Because of the daughter's reaction I would be beneficial for the patient to complete a so that he can make his wishes known specifically and at a time when he is not critically ill. Document(s) Completed: None Time Spent: 18 minutes
[2019-05-20] MEDS: POTASSIUM CHLORIDE 20 MEQ/50 ML RTU IV SCH ×2 (21:03→23:15)
[2019-05-20] MEDS: HEPARIN SOD (PORCINE) 5,000 UNIT/ML 1 ML VIAL SUBCUT SCH (22:22)
[2019-05-20] MEDS: ATORVASTATIN CALCIUM 80 MG TABLET PO SCH (22:22)
[2019-05-20] MEDS: PROMETHAZINE HCL 25 MG TABLET PO PRN (23:17)
[2019-05-20] MEDS: GABAPENTIN 300 MG CAPSULE PO SCH (23:21)
[2019-05-20] MEDS: TRAZODONE HCL 50 MG TABLET PO PRN (23:21)
[2019-05-21] MEDS: IPRATROPIUM/ALBUTEROL 0.5-2.5 MG/3 ML AMPUL NEB SCH ×4 (00:03→23:59)
[2019-05-21] MEDS: OXYCODONE HCL IR 5 MG TABLET PO PRN ×2 (00:17→10:04)
--- NOTE | 2019-05-21 00:30 | EKG REPORT ---
SEVERITY:- ABNORMAL ECG - SINUS RHYTHM LEFT ANTERIOR FASCICULAR BLOCK : Confirmed by: Qiana Prieto MD 21-May-2019 00:29:34
[2019-05-21] MEDS ORDERED: OXYCODONE HCL IR 5 MG TABLET PO ONE (01:15)
[2019-05-21] MEDS: POTASSIUM CHLORIDE 20 MEQ/50 ML RTU IV SCH ×5 (01:18→14:26)
[2019-05-21] MEDS: PANTOPRAZOLE SODIUM 40 MG TABLET.DR PO SCH (05:00)
[2019-05-21] MEDS: GABAPENTIN 300 MG CAPSULE PO SCH ×4 (05:00→23:17)
[2019-05-21] MEDS: OXYCODONE HCL IR 5 MG TABLET PO SCH ×6 (05:00→23:18)
[2019-05-21] MEDS: HEPARIN SOD (PORCINE) 5,000 UNIT/ML 1 ML VIAL SUBCUT SCH ×3 (05:00→21:48)
[2019-05-21 07:12] LABS: VENOUS BLOOD BASE EXCESS 23.2 mmol/L; VENOUS BLOOD HCO3 50.4 mmol/L (20-32); VENOUS BLOOD PCO2 64.9 mmHg (35-63); VENOUS BLOOD PH 7.51 (7.30-7.42)
[2019-05-21 07:51] LABS: ARTERIAL BLOOD BASE EXCESS 18.4 mmol/L; ARTERIAL BLOOD H2CO3 1.57 mmol/L (1.05-1.35); ARTERIAL BLOOD HCO3 43.6 mmol/L (20-24); ARTERIAL BLOOD O2 SATURATION 97.7 % (94-98); ARTERIAL BLOOD PCO2 52.2 mmHg (35-45); ARTERIAL BLOOD PH 7.54 (7.35-7.45); ARTERIAL BLOOD PO2 93.1 mmHg (80-100); ARTERIAL BLOOD TOTAL CO2 45.2 mmol/L (23-27)
[2019-05-21 07:52] LABS: ARTERIAL BLOOD FIO2 3L
[2019-05-21] MEDS: POTASSIUM CHLORIDE 10 MEQ CAPSULE.ER PO SCH ×3 (07:56→16:07)
[2019-05-21 08:12] LABS: BLOOD UREA NITROGEN 10 mg/dL (7-20); CALCIUM 8.4 mg/dL (8.4-10.2); CHLORIDE 73 mmol/L (98-107); GLUCOSE 100 mg/dL (75-110)
[2019-05-21 08:13] LABS: ANION GAP 8 (5-19); CARBON DIOXIDE 45 mmol/L (22-30)
[2019-05-21 08:21] LABS: ABSOLUTE EOSINOPHILS # (AUTO) 0.2 10^3/uL (0.0-0.6); ABSOLUTE LYMPHOCYTES (AUTO) 2.6 10^3/uL (0.5-4.7); ABSOLUTE MONOCYTES (AUTO) 0.4 10^3/uL (0.1-1.4); ABSOLUTE NEUT (AUTO) 2.4 10^3/uL (1.7-8.2); BASOPHILS % (AUTO) 0.5 % (0-2); EOSINOPHILS % (AUTO) 3.7 % (0-6); HEMATOCRIT 35.7 % (37.9-51.0); HEMOGLOBIN 12.9 g/dL (13.5-17.0); LYMPHOCYTES % (AUTO) 46.6 % (13-45); MEAN CORPUSCULAR HEMOGLOBIN 30.2 pg (27.0-33.4); MEAN CORPUSCULAR VOLUME 84 fl (80-97); MONOCYTES % (AUTO) 7.6 % (3-13); PLATELET COUNT 181 10^3/uL (150-450); RED BLOOD COUNT 4.27 10^6/uL (4.35-5.55); RED CELL DISTRIBUTION WIDTH 13.8 % (11.5-14.0); SEGMENTED NEUTROPHILS % (AUTO) 41.6 % (42-78); TOTAL CELLS COUNTED % (AUTO) 100 %; WHITE BLOOD COUNT 5.7 10^3/uL (4.0-10.5)
[2019-05-21] MEDS: FLUTICASONE/UMECLIDIN/VILANTER 100-62.5-25 MCG/DOSE IH SCH (10:04)
[2019-05-21] MEDS: DOCUSATE SODIUM 100 MG CAPSULE PO SCH ×2 (10:04→17:07)
[2019-05-21] MEDS: NICOTINE 14 MG/24 HR PATCH.TD24 TD SCH (10:04)
--- NOTE | 2019-05-21 11:09 | EKG REPORT ---
SEVERITY:- ABNORMAL ECG - SINUS RHYTHM INCOMPLETE RBBB AND LAFB : Confirmed by: Qiana Prieto MD 21-May-2019 11:08:27
[2019-05-21 11:42] LABS: BLOOD UREA NITROGEN 10 mg/dL (7-20); CALCIUM 8.8 mg/dL (8.4-10.2); CHLORIDE 78 mmol/L (98-107); GLUCOSE 105 mg/dL (75-110)
[2019-05-21 12:14] LABS: ANION GAP 9 (5-19); CARBON DIOXIDE 44 mmol/L (22-30); POTASSIUM 2.6 mmol/L (3.6-5.0)
[2019-05-21] MEDS: PROMETHAZINE HCL 25 MG TABLET PO PRN ×2 (12:30→20:30)
--- NOTE | 2019-05-21 15:58 | PDOC PROGRESS REPORT ---
Subjective Progress Note for:: 05/21/19 Subjective:: The patient is resting in bed. He states that his overall achiness and cramping is feeling slightly better. He complains of a funny feeling in his ankles that he describes as "numb". After further discussion he states that it is more like [id number]. He still remains fatigued. Reason For Visit: HYPOKALEMIA,HYPONATREMIA,METABOLIC ALKALOSIS Physical Exam Vital Signs: Temp Pulse Resp BP Pulse Ox 98.3 F 68 18 112/57 L 92 05/21/19 11:37 05/21/19 14:00 05/21/19 11:37 05/21/19 11:37 05/21/19 11:37 Intake & Output 05/20/19 05/21/19 05/22/19 06:59 06:59 06:59 Intake Total 1300 200 Output Total 400 Balance 900 200 Weight 89 kg General appearance: PRESENT: no acute distress, cooperative, well-developed Head exam: PRESENT: atraumatic, normocephalic Eye exam: PRESENT: conjunctiva pink. ABSENT: scleral icterus Ear exam: PRESENT: normal external ear exam. ABSENT: bleeding, drainage Mouth exam: PRESENT: moist Respiratory exam: PRESENT: clear to auscultation jw, symmetrical, unlabored. ABSENT: rales, rhonchi, tachypnea, wheezes Cardiovascular exam: PRESENT: RRR, +S1, +S2 GI/Abdominal exam: PRESENT: normal bowel sounds, soft. ABSENT: distended, tenderness Rectal exam: PRESENT: deferred Extremities exam: PRESENT: pedal edema, tenderness, +1 edema Musculoskeletal exam: PRESENT: ambulatory, tenderness - Ankles and feet. ABSENT: deformity Neurological exam: PRESENT: alert, awake, oriented to person, oriented to place, oriented to time, oriented to situation, CN II-XII grossly intact, other - Gross sensation is intact bilateral lower extremities. Psychiatric exam: PRESENT: flat affect. ABSENT: agitated, anxious Focused psych exam: ABSENT: delusional, restlessness Results Laboratory Results: 05/21/19 04:59 05/21/19 10:50 05/20/19 05/20/19 05/20/19 16:50 16:50 17:35 WBC 8.2 RBC 4.74 Hgb 14.0 Hct 40.2 MCV 85 MCH 29.6 MCHC 34.9 RDW 13.7 Plt Count 214 Seg Neutrophils % 47.8 Carbonic Acid 1.45 H HCO3/H2CO3 Ratio 33:1 ABG pH 7.62 H* ABG pCO2 48.3 H ABG pO2 62.5 L ABG HCO3 48.7 H ABG O2 Saturation 94.9 ABG Base Excess 24.0 VBG pH VBG pCO2 VBG HCO3 VBG Base Excess FiO2 2 L Sodium 122.5 L Potassium 1.8 L* Chloride 61 L Carbon Dioxide 47 H* Anion Gap 15 BUN 14 Creatinine 0.78 Est GFR ( Amer) > 60 Glucose 104 Calcium 9.0 Magnesium 2.4 H Total Bilirubin 1.0 AST 35 Alkaline Phosphatase 167 H Total Protein 8.2 Albumin 4.4 Urine Osmolality 05/20/19 05/21/19 05/21/19 22:30 04:59 04:59 WBC 5.7 RBC 4.27 L Hgb 12.9 L Hct 35.7 L MCV 84 MCH 30.2 MCHC 36.0 RDW 13.8 Plt Count 181 Seg Neutrophils % 41.6 L Carbonic Acid HCO3/H2CO3 Ratio ABG pH ABG pCO2 ABG pO2 ABG HCO3 ABG O2 Saturation ABG Base Excess VBG pH VBG pCO2 VBG HCO3 VBG Base Excess FiO2 Sodium 125.8 L Potassium 2.0 L* Chloride 73 L Carbon Dioxide 45 H* Anion Gap 8 BUN 10 Creatinine 0.69 Est GFR ( Amer) > 60 Glucose 100 Calcium 8.4 Magnesium 2.5 H Total Bilirubin AST Alkaline Phosphatase Total Protein Albumin Urine Osmolality 144 L 05/21/19 05/21/19 05/21/19 05:00 06:30 10:50 WBC RBC Hgb Hct MCV MCH MCHC RDW Plt Count Seg Neutrophils % Carbonic Acid 1.57 H HCO3/H2CO3 Ratio 27:1 ABG pH 7.54 H ABG pCO2 52.2 H ABG pO2 93.1 ABG HCO3 43.6 H ABG O2 Saturation 97.7 ABG Base Excess 18.4 VBG pH 7.51 H VBG pCO2 64.9 H VBG HCO3 50.4 H VBG Base Excess 23.2 FiO2 3L Sodium 131.4 L Potassium 2.6 L* Chloride 78 L Carbon Dioxide 44 H* Anion Gap 9 BUN 10 Creatinine 0.74 Est GFR ( Amer) > 60 Glucose 105 Calcium 8.8 Magnesium 2.6 H Total Bilirubin AST Alkaline Phosphatase Total Protein Albumin Urine Osmolality 05/20/19 16:50 Troponin I < 0.012 Impressions: Chest X-Ray 05/20/19 15:43 IMPRESSION: Patchy opacities in the left retrocardiac space that could represent atelectasis or pneumonia. Assessment and Plan - Diagnosis (1) Hypokalemia Is this a current diagnosis for this admission?: Yes Plan: 05/20/2019-likely secondary to diuretic therapy. We will replete the potassium. This will also help the metabolic alkalosis. Serial chemistries to monitor correction. 05/21/2019-despite multiple K riders the patient's serum potassium was still only 2.6. The bid writer ordered for more doses and started the patient on 40 mEq of potassium twice daily by mouth. I have continued every 6 hour chemistries. (2) Hyponatremia Is this a current diagnosis for this admission?: Yes Plan: 05/20/2019-likely secondary to diuretic use. Will infuse normal saline and monitor the correction. We will adjust IV fluids accordingly. He will be on a 1 L oral fluid restriction and I will hold his diuretics today. With his history of diastolic heart failure I will monitor his intake and output and likely start low-dose diuretics tomorrow. If necessary we can decrease the IV fluid and enforce a stricter fluid restriction. 05/21/2019-the serum sodium is improving slowly. The patient is in a net positive fluid balance. He was not short of breath today but I will likely need to resume some of his furosemide tomorrow. (3) Metabolic alkalosis Is this a current diagnosis for this admission?: Yes Plan: 05/20/2019-secondary to diuretic use. Will monitor as we correct the electrolytes. Will recheck a blood gas tomorrow. Will consider Acetozolamide based on tomorrow's blood gas and serum chemistry results. 05/21/2019-continues to improve. pH was down to 7.54. Bicarb is slowly improving and is down to 41. We will recheck labs and consider utilizing Diamox if the patient does not continue to improve. (4) CHF (congestive heart failure) Qualifiers: Heart failure type: diastolic Heart failure chronicity: chronic Qualified Code(s): I50.32 - Chronic diastolic (congestive) heart failure Is this a current diagnosis for this admission?: Yes Plan: 05/20/2019-the patient has a history of chronic diastolic heart failure. We will need to monitor his intake and output. I am going to hold his furosemide and metolazone for today and reassess tomorrow. As noted above we must be mindful of the saline infusion to correct the hyponatremia. We may have to decrease the IV fluids and enforce a stricter fluid restriction. 05/21/2019-currently asymptomatic. Unfortunately he is getting significant IV fluid but we will continue the oral fluid restriction. I will likely decrease the IV fluids tomorrow based on the patient's respiratory status and electrolytes. (5) Coronary artery disease Qualifiers: Coronary Disease-Associated Artery/Lesion type: [place] artery Is this a current diagnosis for this admission?: Yes Plan: 05/20/2019-the patient has a history of coronary disease. Unfortunately he still smokes. We will continue his statin therapy. We are holding the diuretics as noted above. Consider initiating an CRISTA inhibitor or angiotensin receptor elidia as well as low-dose beta-elidia. Also consider initiating enteric-coated aspirin 81 mg daily keeping in mind his history of reflux and gastritis. 05/21/2019-no change at this time. (6) GERD (gastroesophageal reflux disease) Qualifiers: Esophagitis presence: without esophagitis Qualified Code(s): K21.9 - Gastro-esophageal reflux disease without esophagitis Is this a current diagnosis for this admission?: Yes Plan: 05/20/2019-continue Protonix 30 mg daily. 05/21/2019-no change in the treatment plan. (7) Tobacco dependence Is this a current diagnosis for this admission?: Yes Plan: 05/20/2019-I have ordered a nicotine patch daily. We discussed the patient's absolute need to stop smoking. His family is supportive of this. (8) Chronic narcotic dependence Is this a current diagnosis for this admission?: Yes Plan: 05/20/2019-the patient is on oxycodone and levorphanol. He actually breaks his oxycodone tablets in half and takes 5 mg every 4 hours instead of 10 mg every 6 hours. His total dose is 30 mg instead of 40 mg. He also takes the levorphanol twice daily. This is not on formulary and we may need to use his supply. 05/21/2019-the patient's will bring in the levorphanol up. I have asked pharmacy to utilize this. In the meantime his oxycodone dose was increased. I would like to work him back to his baseline dosing. (9) Chronic back pain Qualifiers: Back pain location: low back pain Back pain laterality: midline Sciatica presence: with sciatica Sciatica laterality: bilateral sciatica Qualified Code(s): M54.41 - Lumbago with sciatica, right side; M54.42 - Lumbago with sciatica, left side; G89.29 - Other chronic pain Is this a current diagnosis for this admission?: Yes Plan: 05/20/2019-as noted above we will continue the oxycodone as well as his gabapentin. Despite the 600 mg tablets the patient takes 300 mg 4 times a day. 05/21/2019-the patient required increased pain medications last night. This is because we do not have levorphanol on formulary. I have asked the patient to have his bring in his levorphanol. Pharmacy will check it and we will keep it locked up in the [facility] and distribute the medication twice daily as ordered. (10) Neuropathy Is this a current diagnosis for this admission?: Yes Plan: 05/21/2019-the patient is already on gabapentin. We reviewed his symptoms and the likelihood that the tingling/kayt-loh-wygakim he is feeling is the neuropathy that is exacerbated by his electrolyte abnormalities. We are going to increase the gabapentin to 400 mg every 6 hours to see if this is helpful. He states that when he took the 600 mg tablets they did not seem to be as effective as the lower doses. If this increase does not work we will return to the 300 mg every 6 hours. - Time Time Spent with patient: 15-24 minutes Medications reviewed and adjusted accordingly: Yes Anticipated discharge: Home Within: within 48 hours
[2019-05-21] MEDS ORDERED: PHARMACY COMMUNICATION ORDER MC NR (16:00)
[2019-05-21] MEDS: GABAPENTIN 100 MG CAPSULE PO SCH ×2 (17:07→23:17)
[2019-05-21] MEDS: ATORVASTATIN CALCIUM 80 MG TABLET PO SCH (21:48)
[2019-05-21] MEDS: TRAZODONE HCL 50 MG TABLET PO PRN (23:18)
[2019-05-22 00:04] LABS: BLOOD UREA NITROGEN 12 mg/dL (7-20); CALCIUM 8.8 mg/dL (8.4-10.2); CHLORIDE 86 mmol/L (98-107); GLUCOSE 99 mg/dL (75-110)
[2019-05-22 00:10] LABS: ANION GAP 11 (5-19)
[2019-05-22 00:11] LABS: CARBON DIOXIDE 39 mmol/L (22-30)
[2019-05-22] MEDS: OXYCODONE HCL IR 5 MG TABLET PO SCH ×6 (03:49→23:09)
[2019-05-22] MEDS: GABAPENTIN 100 MG CAPSULE PO SCH ×4 (05:16→23:09)
[2019-05-22] MEDS: GABAPENTIN 300 MG CAPSULE PO SCH ×4 (05:16→23:08)
[2019-05-22] MEDS: HEPARIN SOD (PORCINE) 5,000 UNIT/ML 1 ML VIAL SUBCUT SCH ×3 (05:16→21:37)
[2019-05-22] MEDS: PANTOPRAZOLE SODIUM 40 MG TABLET.DR PO SCH (05:17)
[2019-05-22 07:02] LABS: ANION GAP 9 (5-19); BLOOD UREA NITROGEN 11 mg/dL (7-20); CALCIUM 8.7 mg/dL (8.4-10.2); CARBON DIOXIDE 37 mmol/L (22-30); CHLORIDE 89 mmol/L (98-107); GLUCOSE 92 mg/dL (75-110)
[2019-05-22] MEDS: POTASSIUM CHLORIDE 10 MEQ CAPSULE.ER PO SCH ×3 (08:07→17:10)
[2019-05-22] MEDS: IPRATROPIUM/ALBUTEROL 0.5-2.5 MG/3 ML AMPUL NEB SCH ×3 (08:14→23:51)
[2019-05-22] MEDS: OXYCODONE HCL IR 5 MG TABLET PO PRN (08:29)
[2019-05-22] MEDS: POTASSIUM CHLORIDE 20 MEQ/50 ML RTU IV SCH ×2 (08:50→11:13)
[2019-05-22] MEDS: THIAMINE HCL 100 MG TABLET PO SCH (09:48)
[2019-05-22] MEDS: DOCUSATE SODIUM 100 MG CAPSULE PO SCH ×2 (09:48→17:10)
[2019-05-22] MEDS: PROMETHAZINE HCL 25 MG TABLET PO PRN ×3 (09:49→19:38)
[2019-05-22] MEDS: NICOTINE 14 MG/24 HR PATCH.TD24 TD SCH (09:50)
[2019-05-22] MEDS: FLUTICASONE/UMECLIDIN/VILANTER 100-62.5-25 MCG/DOSE IH SCH (09:57)
[2019-05-22] MEDS ORDERED: (PENDING PHARMACY ID) (Thiamine Hcl [Vitamin B-1] 250 MG) PO SCH (10:00)
[2019-05-22] MEDS ORDERED: ONDANSETRON HCL INJ/PF 4 MG/2 ML SDV IV ONE (12:00)
[2019-05-22] MEDS ORDERED: PROMETHAZINE HCL INJ 25 MG/1 ML VIAL IV ONE ×2 (13:00→17:45)
--- NOTE | 2019-05-22 17:34 | PDOC PROGRESS REPORT ---
Subjective Progress Note for:: 05/22/19 Subjective:: The patient is sitting in bed. He looks miserable. He has had refractory nausea and vomited several times. He is having increased abdominal pain. Reason For Visit: HYPOKALEMIA,HYPONATREMIA,METABOLIC ALKALOSIS Physical Exam Vital Signs: Temp Pulse Resp BP Pulse Ox 98.0 F 69 16 132/70 H 97 05/22/19 15:17 05/22/19 16:04 05/22/19 16:04 05/22/19 15:17 05/22/19 16:04 Intake & Output 05/21/19 05/22/19 05/23/19 06:59 06:59 06:59 Intake Total 1300 1792 562 Output Total 400 300 Balance 900 1492 562 Weight 89 kg 88.9 kg General appearance: PRESENT: cooperative, mild distress, well-developed Respiratory exam: PRESENT: clear to auscultation jw, symmetrical, unlabored. ABSENT: rales, rhonchi, tachypnea, wheezes Cardiovascular exam: PRESENT: RRR, +S1, +S2 GI/Abdominal exam: PRESENT: normal bowel sounds, soft, tenderness. ABSENT: distended Gentrourinary exam: ABSENT: indwelling catheter Extremities exam: PRESENT: pedal edema. ABSENT: joint swelling Musculoskeletal exam: PRESENT: ambulatory, full ROM Neurological exam: PRESENT: alert, awake, oriented to person, oriented to place, oriented to time, oriented to situation, CN II-XII grossly intact Psychiatric exam: PRESENT: appropriate affect - Affect reflects his abdominal pain. ABSENT: agitated, anxious Results Laboratory Results: 05/21/19 04:59 05/22/19 06:33 05/21/19 05/21/19 05/22/19 22:01 23:14 06:33 Sodium Cancelled 136.3 L 135.2 L Potassium Cancelled 3.0 L* 3.0 L* Chloride Cancelled 86 L 89 L Carbon Dioxide Cancelled 39 H 37 H Anion Gap Cancelled 11 9 BUN Cancelled 12 11 Creatinine Cancelled 0.88 0.76 Est GFR ( Amer) Cancelled > 60 > 60 Est GFR (Non-Af Amer) Cancelled Glucose Cancelled 99 92 Calcium Cancelled 8.8 8.7 Magnesium Cancelled 2.7 H 2.5 H 05/20/19 16:50 Troponin I < 0.012 Impressions: Chest X-Ray 05/20/19 15:43 IMPRESSION: Patchy opacities in the left retrocardiac space that could represent atelectasis or pneumonia. Assessment and Plan - Diagnosis (1) Hypokalemia Is this a current diagnosis for this admission?: Yes Plan: 05/20/2019-likely secondary to diuretic therapy. We will replete the potassium. This will also help the metabolic alkalosis. Serial chemistries to monitor correction. 05/21/2019-despite multiple K riders the patient's serum potassium was still only 2.6. The engine test cell technician ordered for more doses and started the patient on 40 mEq of potassium twice daily by mouth. I have continued every 6 hour ch emistries. 05/22/2019-we are close to catching up. The patient is having abdominal pain likely because of the large oral doses of potassium. I will decrease the oral doses to 40 mEq twice a day and give additional K riders today. (2) Hyponatremia Is this a current diagnosis for this admission?: Yes Plan: 05/20/2019-likely secondary to diuretic use. Will infuse normal saline and monitor the correction. We will adjust IV fluids accordingly. He will be on a 1 L oral fluid restriction and I will hold his diuretics today. With his history of diastolic heart failure I will monitor his intake and output and likely start low-dose diuretics tomorrow. If necessary we can decrease the IV fluid and enforce a stricter fluid restriction. 05/21/2019-the serum sodium is improving slowly. The patient is in a net positive fluid balance. He was not short of breath today but I will likely need to resume some of his furosemide tomorrow. 05/22/2019-sodium continues to close and on the normal range. (3) Metabolic alkalosis Is this a current diagnosis for this admission?: Yes Plan: 05/20/2019-secondary to diuretic use. Will monitor as we correct the electrol ytes. Will recheck a blood gas tomorrow. Will consider Acetozolamide based on tomorrow's blood gas and serum chemistry results. 05/21/2019-continues to improve. pH was down to 7.54. Bicarb is slowly improving and is down to 41. We will recheck labs and consider utilizing Diamox if the patient does not continue to improve. 05/22/2019-continues to slowly improve. (4) CHF (congestive heart failure) Qualifiers: Heart failure type: diastolic Heart failure chronicity: chronic Qualified Code(s): I50.32 - Chronic diastolic (congestive) heart failure Is this a current diagnosis for this admission?: Yes Plan: 05/20/2019-the patient has a history of chronic diastolic heart failure. We will need to monitor his intake and output. I am going to hold his furosemide and metolazone for today and reassess tomorrow. As noted above we must be mi ndful of the saline infusion to correct the hyponatremia. We may have to decrease the IV fluids and enforce a stricter fluid restriction. 05/21/2019-currently asymptomatic. Unfortunately he is getting significant IV fluid but we will continue the oral fluid restriction. I will likely decrease the IV fluids tomorrow based on the patient's respiratory status and electrolytes. 05/22/2019-still asymptomatic. Will slow IV fluids. He has been a positive fluid balance but I think he was markedly dehydrated. Continue to monitor closely. (5) Coronary artery disease Qualifiers: Coronary Disease-Associated Artery/Lesion type: [place] artery Is this a current diagnosis for this admission?: Yes Plan: 05/20/2019-the patient has a history of coronary disease. Unfortunately he still smokes. We will continue his statin therapy. We are holding the diuretics as noted above. Consider initiating an CRISTA inhibitor or angiotensin receptor elidia as well as low-dose beta-elidia. Also consider initiating enteric-coated aspirin 81 mg daily keeping in mind his history of reflux and gastritis. 05/21/2019-no change at this time. 05/22/2019-asymptomatic. Continue same regimen. (6) GERD (gastroesophageal reflux disease) Qualifiers: Esophagitis presence: without esophagitis Qualified Code(s): K21.9 - Gastro-esophageal reflux disease without esophagitis Is this a current diagnosis for this admission?: Yes Plan: 05/20/2019-continue Protonix 40 mg daily. 05/21/2019-no change in the treatment plan. 05/22/2019-continue Protonix 40 mg daily. (7) Tobacco dependence Is this a current diagnosis for this admission?: Yes Plan: 05/20/2019-I have ordered a nicotine patch daily. We discussed the patient's ab solute need to stop smoking. His family is supportive of this. (8) Chronic narcotic dependence Is this a current diagnosis for this admission?: Yes Plan: 05/20/2019-the patient is on oxycodone and levorphanol. He actually breaks his oxycodone tablets in half and takes 5 mg every 4 hours instead of 10 mg every 6 hours. His total dose is 30 mg instead of 40 mg. He also takes the levorphanol twice daily. This is not on formulary and we may need to use his supply. 05/21/2019-the patient's will bring in the levorphanol up. I have asked pharmacy to utilize this. In the meantime his oxycodone dose was increased. I would like to work him back to his baseline dosing. 05/22/2019-the patient is now back to his baseline regimen at home. He has better pain control. (9) Chronic back pain Qualifiers: Back pain location: low back pain Back pain laterality: midline Sciatica presence: with sciatica Sciatica laterality: bilateral sciatica Qualified Code(s): M54.41 - Lumbago with sciatica, right side; M54.42 - Lumbago with sciatica, left side; G89.29 - Other chronic pain Is this a current diagnosis for this admission?: Yes Plan: 05/20/2019-as noted above we will continue the oxycodone as well as his gabapent in. Despite the 600 mg tablets the patient takes 300 mg 4 times a day. 05/21/2019-the patient required increased pain medications last night. This is because we do not have levorphanol on formulary. I have asked the patient to have his bring in his levorphanol. Pharmacy will check it and we will keep it locked up in the [facility] and distribute the medication twice daily as ordered. 05/22/2019-as noted above the patient has better pain control now. Unfortunately the nausea and vomiting is not helping his back pain. (10) Neuropathy Is this a current diagnosis for this admission?: Yes Plan: 05/21/2019-the patient is already on gabapentin. We reviewed his symptoms and the likelihood that the tingling/iujk-rhv-ukbwiof he is feeling is the neuropathy that is exacerbated by his electrolyte abnormalities. We are going to increase the gabapentin to 400 mg every 6 hours to see if this is helpful. He states that when he took the 600 mg tablets they did not seem to be as effective as the lower doses. If this increase does not work we will return to the 300 mg every 6 hours. 05/22/2019-he is tolerating the increased dose of gabapentin. It is difficult to tell if it is helpful due to the nausea and vomiting. (11) Hypermagnesemia Is this a current diagnosis for this admission?: Yes Plan: 05/22/2019-serum magnesium was elevated but is beginning to improve. We will continue to monitor. - Time Time Spent with patient: 15-24 minutes Medications reviewed and adjusted accordingly: Yes Anticipated discharge: Home Within: within 48 hours
[2019-05-22] MEDS ORDERED: METOCLOPRAMIDE HCL INJ/PF 10 MG/2 ML SDV IV PRN (17:37)
[2019-05-22] MEDS: SUCRALFATE 1 GM TABLET PO SCH (21:38)
[2019-05-22] MEDS: ATORVASTATIN CALCIUM 80 MG TABLET PO SCH (21:38)
[2019-05-23 01:35] LABS: ANION GAP 9 (5-19); BLOOD UREA NITROGEN 11 mg/dL (7-20); CARBON DIOXIDE 37 mmol/L (22-30); CHLORIDE 91 mmol/L (98-107); GLUCOSE 122 mg/dL (75-110); POTASSIUM 3.7 mmol/L (3.6-5.0)
[2019-05-23 05:37] LABS: ANION GAP 9 (5-19); BLOOD UREA NITROGEN 11 mg/dL (7-20); CARBON DIOXIDE 35 mmol/L (22-30); CHLORIDE 94 mmol/L (98-107); GLUCOSE 90 mg/dL (75-110); POTASSIUM 3.6 mmol/L (3.6-5.0)
[2019-05-23] MEDS: PANTOPRAZOLE SODIUM 40 MG TABLET.DR PO SCH (05:40)
[2019-05-23] MEDS: OXYCODONE HCL IR 5 MG TABLET PO SCH ×6 (05:40→23:04)
[2019-05-23] MEDS: GABAPENTIN 300 MG CAPSULE PO SCH ×4 (05:40→23:04)
[2019-05-23] MEDS: GABAPENTIN 100 MG CAPSULE PO SCH ×4 (05:40→23:04)
[2019-05-23] MEDS: HEPARIN SOD (PORCINE) 5,000 UNIT/ML 1 ML VIAL SUBCUT SCH ×3 (05:56→22:57)
[2019-05-23] MEDS: SUCRALFATE 1 GM TABLET PO SCH ×4 (08:08→22:57)
[2019-05-23] MEDS: IPRATROPIUM/ALBUTEROL 0.5-2.5 MG/3 ML AMPUL NEB SCH ×2 (08:21→16:06)
[2019-05-23] MEDS: THIAMINE HCL 100 MG TABLET PO SCH (09:17)
[2019-05-23] MEDS: POTASSIUM CHLORIDE 10 MEQ CAPSULE.ER PO SCH ×2 (09:17→17:22)
[2019-05-23] MEDS: NICOTINE 14 MG/24 HR PATCH.TD24 TD SCH (09:18)
[2019-05-23] MEDS: FLUTICASONE/UMECLIDIN/VILANTER 100-62.5-25 MCG/DOSE IH SCH (09:18)
[2019-05-23] MEDS: DOCUSATE SODIUM 100 MG CAPSULE PO SCH ×2 (09:18→17:23)
--- NOTE | 2019-05-23 21:00 | PDOC PROGRESS REPORT ---
Subjective Progress Note for:: 05/23/19 Subjective:: The patient is sitting in the chair. He states he feels 100% better than yesterday. His serum potassium is just in the normal range. He has no more nausea or vomiting. Reason For Visit: HYPOKALEMIA,HYPONATREMIA,METABOLIC ALKALOSIS Physical Exam Vital Signs: Temp Pulse Resp BP Pulse Ox 98.7 F 70 20 93/62 L 98 05/23/19 20:41 05/23/19 20:41 05/23/19 20:41 05/23/19 20:41 05/23/19 20:41 Intake & Output 05/22/19 05/23/19 05/24/19 06:59 06:59 06:59 Intake Total 6756 445 9336 Output Total 300 275 Balance 0856 280 2019 Weight 88.9 kg 90 kg General appearance: PRESENT: no acute distress, cooperative, well-developed Head exam: PRESENT: atraumatic, normocephalic Ear exam: PRESENT: normal external ear exam. ABSENT: bleeding, drainage Respiratory exam: PRESENT: clear to auscultation jw, symmetrical, unlabored. ABSENT: rales, rhonchi, tachypnea, wheezes Cardiovascular exam: PRESENT: RRR, +S1, +S2 GI/Abdominal exam: PRESENT: normal bowel sounds, soft. ABSENT: distended, ten derness Extremities exam: PRESENT: pedal edema Musculoskeletal exam: PRESENT: ambulatory, full ROM. ABSENT: deformity Neurological exam: PRESENT: alert, awake, oriented to person, oriented to place, oriented to time, oriented to situation, CN II-XII grossly intact Psychiatric exam: PRESENT: appropriate affect, normal mood. ABSENT: agitated, anxious Focused psych exam: ABSENT: delusional, restlessness Results Laboratory Results: 05/21/19 04:59 05/23/19 04:22 05/23/19 05/23/19 00:28 04:22 Sodium 137.0 138.2 Potassium 3.7 3.6 Chloride 91 L 94 L Carbon Dioxide 37 H 35 H Anion Gap 9 9 BUN 11 11 Creatinine 0.81 0.83 Est GFR ( Amer) > 60 > 60 Glucose 122 H 90 Calcium 9.0 9.0 Magnesium 2.4 H 05/20/19 16:50 Troponin I < 0.012 Impressions: Chest X-Ray 05/20/19 15:43 IMPRESSION: Patchy opacities in the left retrocardiac space that could represent atelectasis or pneumonia. Assessment and Plan - Diagnosis (1) Hypokalemia Is this a current diagnosis for this admission?: Yes Plan: 05/20/2019-likely secondary to diuretic therapy. We will replete the potassium. This will also help the metabolic alkalosis. Serial chemistries to monitor correction. 05/21/2019-despite multiple K riders the patient's serum potassium was still only 2.6. The parks worker ordered for more doses and started the patient on 40 mEq of potassium twice daily by mouth. I have continued every 6 hour chemistries. 05/22/2019-we are close to catching up. The patient is having abdominal pain likely because of the large oral doses of potassium. I will decrease the oral doses to 40 mEq twice a day and give additional K riders today. 05/23/2019-potassium is normal this morning. I have ordered blood work for tomorrow and if his potassium is normal on his current regimen he will discharge to home. (2) Hyponatremia Is this a current diagnosis for this admission?: Yes Plan: 05/20/2019-likely secondary to diuretic use. Will infuse normal saline and monitor the correction. We will adjust IV fluids accordingly. He will be on a 1 L oral fluid restriction and I will hold his diuretics today. With his history of diastolic heart failure I will monitor his intake and output and likely start low-dose diuretics tomorrow. If necessary we can decrease the IV fluid and enforce a stricter fluid restriction. 05/21/2019-the serum sodium is improving slowly. The patient is in a net positive fluid balance. He was not short of breath today but I will likely need to resume some of his furosemide tomorrow. 05/22/2019-sodium continues to close and on the normal range. 05/23/2019-sodium is normal. (3) Metabolic alkalosis Is this a current diagnosis for this admission?: Yes Plan: 05/20/2019-secondary to diuretic use. Will monitor as we correct the electrolytes. Will recheck a blood gas tomorrow. Will consider Acetozolamide based on tomorrow's blood gas and serum chemistry results. 05/21/2019-continues to improve. pH was down to 7.54. Bicarb is slowly improving and is down to 41. We will recheck labs and consider utilizing Diamox if the patient does not continue to improve. 05/22/2019-continues to slowly improve. 05/23/2019-still slightly alkalotic. Consider Diamox if the bicarb is elevated tomorrow. (4) CHF (congestive heart failure) Qualifiers: Heart failure type: diastolic Heart failure chronicity: chronic Qualified Code(s): I50.32 - Chronic diastolic (congestive) heart failure Is this a current diagnosis for this admission?: Yes Plan: 05/20/2019-the patient has a history of chronic diastolic heart failure. We will need to monitor his intake and output. I am going to hold his furosemide and metolazone for today and reassess tomorrow. As noted above we must be mindful of the saline infusion to correct the hyponatremia. We may have to decrease the IV fluids and enforce a stricter fluid restriction. 05/21/2019-currently asymptomatic. Unfortunately he is getting significant IV fluid but we will continue the oral fluid restriction. I will likely decrease the IV fluids tomorrow based on the patient's respiratory status and electrolytes. 05/22/2019-still asymptomatic. Will slow IV fluids. He has been a positive fluid balance but I think he was markedly dehydrated. Continue to monitor closely. 05/23/2019-despite a positive fluid balance the patient is asymptomatic. I will resume Lasix at 20 mg daily. (5) Coronary artery disease Qualifiers: Coronary Disease-Associated Artery/Lesion type: [place] artery Is this a current diagnosis for this admission?: Yes Plan: 05/20/2019-the patient has a history of coronary disease. Unfortunately he still smokes. We will continue his statin therapy. We are holding the diuretics as noted above. Consider initiating an CRISTA inhibitor or angiotensin receptor elidia as well as low-dose beta-elidia. Also consider initiating enteric-coated aspirin 81 mg daily keeping in mind his history of reflux and gastritis. 05/21/2019-no change at this time. 05/22/2019-asymptomatic. Continue same regimen. 05/23/2019-continue same treatment plan (6) GERD (gastroesophageal reflux disease) Qualifiers: Esophagitis presence: without esophagitis Qualified Code(s): K21.9 - Gastro-esophageal reflux disease without esophagitis Is this a current diagnosis for this admission?: Yes Plan: 05/20/2019-continue Protonix 40 mg daily. 05/21/2019-no change in the treatment plan. 05/22/2019-continue Protonix 40 mg daily. 05/23/2019-asymptomatic. Continue Protonix. (7) Tobacco dependence Is this a current diagnosis for this admission?: Yes Plan: 05/20/2019-I have ordered a nicotine patch daily. We discussed the patient's absolute need to stop smoking. His family is supportive of this. 05/23/2019-the patient has not had a cigarette in 3 days. Hopefully he can maintain tobacco cessation. (8) Chronic narcotic dependence Is this a current diagnosis for this admission?: Yes Plan: 05/20/2019-the patient is on oxycodone and levorphanol. He actually breaks his oxycodone tablets in half and takes 5 mg every 4 hours instead of 10 mg every 6 hours. His total dose is 30 mg instead of 40 mg. He also takes the levorphanol twice daily. This is not on formulary and we may need to use his supply. 05/21/2019-the patient's will bring in the levorphanol up. I have asked pharmacy to utilize this. In the meantime his oxycodone dose was increased. I would like to work him back to his baseline dosing. 05/22/2019-the patient is now back to his baseline regimen at home. He has better pain control. 05/23/2019-patient appears stable on his current regimen. I believe the increase Neurontin is helping as well. (9) Chronic back pain Qualifiers: Back pain location: low back pain Back pain laterality: midline Sciatica presence: with sciatica Sciatica laterality: bilateral sciatica Qualified Code(s): M54.41 - Lumbago with sciatica, right side; M54.42 - Lumbago with sciatica, left side; G89.29 - Other chronic pain Is this a current diagnosis for this admission?: Yes Plan: 05/20/2019-as noted above we will continue the oxycodone as well as his gabapentin. Despite the 600 mg tablets the patient takes 300 mg 4 times a day. 05/21/2019-the patient required increased pain medications last night. This is because we do not have levorphanol on formulary. I have asked the patient to have his bring in his levorphanol. Pharmacy will check it and we will keep it locked up in the [facility] and distribute the medication twice daily as ordered. 05/22/2019-as noted above the patient has better pain control now. Unfortunately the nausea and vomiting is not helping his back pain. 05/23/2019-as above (10) Neuropathy Is this a current diagnosis for this admission?: Yes Plan: 05/21/2019-the patient is already on gabapentin. We reviewed his symptoms and the likelihood that the tingling/[id number] he is feeling is the neuropathy that is exacerbated by his electrolyte abnormalities. We are going to increase the gabapentin to 400 mg every 6 hours to see if this is helpful. He states that when he took the 600 mg tablets they did not seem to be as effective as the lower doses. If this increase does not work we will return to the 300 mg every 6 hours. 05/22/2019-he is tolerating the increased dose of gabapentin. It is difficult to tell if it is helpful due to the nausea and vomiting. 05/23/2019-continue increased dose of gabapentin at discharge (11) Hypermagnesemia Is this a current diagnosis for this admission?: Yes Plan: 05/22/2019-serum magnesium was elevated but is beginning to improve. We will continue to monitor. 05/23/2019-magnesium is still just above the normal range. Continue to monitor as an outpatient. Avoid magnesium supplements. - Plan Summary Summary: 05/23/2019-patient with severe electrolyte derangement on admission and marked dehydration. The patient received aggressive IV fluids. The patient will be started back on his furosemide at 20 mg instead of 80 mg. I told him not to take any metolazone. We will need to be careful not to over correct his potassium. His goal should be to keep his potassium just above 4.0. I would discharge on 20 mEq 3 times a day and 20 mg of furosemide. He needs to follow- up with Dr. Torres next week for blood work. - Time Time Spent with patient: 15-24 minutes Medications reviewed and adjusted accordingly: Yes Anticipated discharge: Home Within: within 24 hours
[2019-05-23] MEDS: ATORVASTATIN CALCIUM 80 MG TABLET PO SCH (22:57)
[2019-05-23] MEDS: TRAZODONE HCL 50 MG TABLET PO PRN (23:04)
[2019-05-24] MEDS: IPRATROPIUM/ALBUTEROL 0.5-2.5 MG/3 ML AMPUL NEB SCH ×2 (00:07→08:18)
[2019-05-24] MEDS: OXYCODONE HCL IR 5 MG TABLET PO SCH ×3 (03:48→11:20)
[2019-05-24] MEDS: OXYCODONE HCL IR 5 MG TABLET PO PRN (03:53)
[2019-05-24] MEDS: HEPARIN SOD (PORCINE) 5,000 UNIT/ML 1 ML VIAL SUBCUT SCH (05:05)
[2019-05-24] MEDS: GABAPENTIN 300 MG CAPSULE PO SCH ×2 (05:08→11:21)
[2019-05-24] MEDS: PANTOPRAZOLE SODIUM 40 MG TABLET.DR PO SCH (05:08)
[2019-05-24] MEDS: GABAPENTIN 100 MG CAPSULE PO SCH ×2 (05:08→11:21)
[2019-05-24 07:13] LABS: ANION GAP 13 (5-19); BLOOD UREA NITROGEN 9 mg/dL (7-20); CALCIUM 9.5 mg/dL (8.4-10.2); CARBON DIOXIDE 32 mmol/L (22-30); CHLORIDE 94 mmol/L (98-107); GLUCOSE 83 mg/dL (75-110); POTASSIUM 4.3 mmol/L (3.6-5.0)
[2019-05-24] MEDS: SUCRALFATE 1 GM TABLET PO SCH ×2 (07:46→11:21)
[2019-05-24] MEDS: NICOTINE 14 MG/24 HR PATCH.TD24 TD SCH (09:07)
[2019-05-24] MEDS: FLUTICASONE/UMECLIDIN/VILANTER 100-62.5-25 MCG/DOSE IH SCH (09:08)
[2019-05-24] MEDS: POTASSIUM CHLORIDE 10 MEQ CAPSULE.ER PO SCH (09:08)
[2019-05-24] MEDS: THIAMINE HCL 100 MG TABLET PO SCH (09:08)
[2019-05-24] MEDS: DOCUSATE SODIUM 100 MG CAPSULE PO SCH (09:08)
[2019-05-24] MEDS ORDERED: FUROSEMIDE 20 MG TABLET PO SCH (10:00)
--- NOTE | 2019-05-24 10:11 | PDOC DISCHARGE SUMMARY ---
Impression - Admit/DC Date/PCP Admission Date/Primary Care Provider: 05/20/19 18:18 TOÑO RICE MD Discharge Date: 05/24/19 - Discharge Diagnosis (1) Coronary artery disease Is this a current diagnosis for this admission?: Yes (2) Hypermagnesemia Is this a current diagnosis for this admission?: Yes (3) Hypokalemia Is this a current diagnosis for this admission?: Yes (4) Hyponatremia Is this a current diagnosis for this admission?: Yes (5) Metabolic alkalosis Is this a current diagnosis for this admission?: Yes (6) CHF (congestive heart failure) Is this a current diagnosis for this admission?: Yes (7) Chronic narcotic dependence Is this a current diagnosis for this admission?: Yes (8) GERD (gastroesophageal reflux disease) Is this a current diagnosis for this admission?: Yes (9) Tobacco dependence Is this a current diagnosis for this admission?: Yes (10) Chronic back pain Is this a current diagnosis for this admission?: Yes - Assessment Summary: Mr. Rubi was admitted to the hospital on referral from his primary care provider. At the time of presentation, patient was experiencing significant weakness, muscle cramping and a generalized feeling of malaise. In the ER blood chemistry revealed significant electrolyte abnormalities with severe hypokalemia of 1.8, hyponatremia in the 120s, hypermagnesemia, as well as metabolic alkalosis with pH of 7.62. Patient was also noted to be significantly dehydrated. His severe electrolyte abnormalities, metabolic alkalosis and dehydration were thought to be secondary to excessive diuresis with Lasix 80 mg daily and metolazone. Patient was subsequently started on electrolyte repletion's as well as aggressive IV fluid hydration with resolution of patient's electrolyte abnormalities. Patient's Lasix dose has been de-escalated to 20 mg daily and he has been started on oral potassium supplements 40 mEq daily to be taken at home. Patient has been given strict instructions to discontinue the metolazone and not to take the 80 mg of Lasix. Patient has assured me that he will schedule a follow-up appointment with his primary care provider this week to have a repeat basic metabolic panel on magnesium levels done. I have sent prescriptions for oral potassium supplements 40 mEq daily for 7 days supply as well as Lasix 20 mg daily for 14 days supply and I have discussed this with patient's pharmacy via phone. - Additional Information Resuscitation Status: Do Not Resuscitate Referrals: TOÑO RICE MD [Primary Care Provider] - Follow up as needed Prescriptions: Potassium Chloride [Klor-Con 10 Meq Capsule ER] 40 meq PO DAILY #7 capsule.er Furosemide [Lasix 20 mg Tablet] 20 mg PO DAILY #14 tablet Nicotine [Nicoderm 14 mg/24 Hr Transdermal Patch] 1 each TD DAILY #7 patch.td24 Home Medications: Gabapentin [Neurontin] 300 mg PO Q3 04/21/18 Oxycodone HCl [Oxycodone HCl 10 MG Tablet] 5 mg PO Q3@03,06,09,15,18,21 04/21/18 Promethazine HCl [Phenergan 25 mg Tablet] 25 mg PO TIDP PRN 04/21/18 Atorvastatin Calcium [Lipitor 40 mg Tablet] 40 mg PO QHS 05/20/19 Levorphanol Tartrate 2 mg PO BID@00,12 05/20/19 Nitroglycerin 1 tab PO Q5MP PRN 05/20/19 Pantoprazole Sodium [Protonix [address] Tablet] 40 mg PO QAM 05/20/19 Thiamine HCl [Vitamin B-1] 250 mg PO DAILY 05/20/19 Zolpidem Tartrate [Ambien] 10 mg PO QHS 05/20/19 Furosemide [Lasix 20 mg Tablet] 20 mg PO DAILY #14 tablet 05/24/19 Nicotine [Nicoderm 14 mg/24 Hr Transdermal Patch] 1 each TD DAILY #7 patch.td24 05/24/19 Potassium Chloride [Klor-Con 10 Meq Capsule ER] 40 meq PO DAILY #7 capsule.er 05/24/19 History of Present Illiness History of Present Illness: WILLIE RUBI is a 63 year old male who was instructed to proceed to the emergency room by his primary care physician Dr. Rice for electrolyte abnormalities. The patient had been feeling achy and weak since May 08. He was in his primary care provider's office to get a flu shot at that time. At first he thought it was the flu shot. Unfortunately he continued to get weaker and then several days ago started having crampy pain in his muscles. It was diffuse/systemic. He had been on diuretics for lower extremity edema and his history of congestive heart failure. He does have underlying oxygen dependent chronic obstructive pulmonary disease. He also has chronic back pain and is on a regimen of oxycodone, levorphanol and gabapentin. With the severe electrolyte abnormalities the patient was initiated on electrolyte replacement and referred to the hospitalist for admission. Physical Exam Vital Signs: Temp Pulse Resp BP Pulse Ox 97.9 F 95 16 98/58 L 98 05/24/19 08:22 05/24/19 08:22 05/24/19 08:22 05/24/19 08:22 05/24/19 08:22 Intake & Output 05/23/19 05/24/19 05/25/19 06:59 06:59 06:59 Intake Total 802 1710 Output Total 275 Balance 527 1710 Weight 90 kg 89.9 kg General appearance: PRESENT: no acute distress, cooperative Head exam: PRESENT: normocephalic Eye exam: PRESENT: EOMI Respiratory exam: PRESENT: clear to auscultation jw, unlabored. ABSENT: tachypnea, wheezes Cardiovascular exam: PRESENT: RRR, +S1, +S2. ABSENT: tachycardia GI/Abdominal exam: PRESENT: normal bowel sounds, soft. ABSENT: distended, rigid, tenderness Neurological exam: PRESENT: alert, awake, oriented to person, oriented to place, oriented to time, oriented to situation Psychiatric exam: ABSENT: agitated Results Laboratory Results: WBC 5.7 10^3/uL (4.0-10.5) 05/21/19 04:59 RBC 4.27 10^6/uL (4.35-5.55) L 05/21/19 04:59 Hgb 12.9 g/dL (13.5-17.0) L 05/21/19 04:59 Hct 35.7 % (37.9-51.0) L 05/21/19 04:59 MCV 84 fl (80-97) 05/21/19 04:59 MCH 30.2 pg (27.0-33.4) 05/21/19 04:59 MCHC 36.0 g/dL (32.0-36.0) 05/21/19 04:59 RDW 13.8 % (11.5-14.0) 05/21/19 04:59 Plt Count 181 10^3/uL (150-450) 05/21/19 04:59 Lymph % (Auto) 46.6 % (13-45) H 05/21/19 04:59 [place] % (Auto) 7.6 % (3-13) 05/21/19 04:59 Eos % (Auto) 3.7 % (0-6) 05/21/19 04:59 Baso % (Auto) 0.5 % (0-2) 05/21/19 04:59 Absolute Neuts (auto) 2.4 10^3/uL (1.7-8.2) 05/21/19 04:59 Absolute Lymphs (auto) 2.6 10^3/uL (0.5-4.7) 05/21/19 04:59 Absolute Monos (auto) 0.4 10^3/uL (0.1-1.4) 05/21/19 04:59 Absolute Eos (auto) 0.2 10^3/uL (0.0-0.6) 05/21/19 04:59 Absolute Basos (auto) 0.0 10^3/uL (0.0-0.2) 05/21/19 04:59 Seg Neutrophils % 41.6 % (42-78) L 05/21/19 04:59 PT 14.9 SEC (11.4-15.4) 05/20/19 16:50 INR 1.16 05/20/19 16:50 APTT 29.2 SEC (23.5-35.8) 05/20/19 16:50 Carbonic Acid 1.57 mmol/L (1.05-1.35) H 05/21/19 06:30 HCO3/H2CO3 Ratio 27:1 05/21/19 06:30 ABG pH 7.54 (7.35-7.45) H 05/21/19 06:30 ABG pCO2 52.2 mmHg (35-45) H 05/21/19 06:30 ABG pO2 93.1 mmHg (80-100) 05/21/19 06:30 ABG HCO3 43.6 mmol/L (20-24) H 05/21/19 06:30 ABG Total CO2 45.2 mmol/L (23-27) H 05/21/19 06:30 ABG O2 Saturation 97.7 % (94-98) 05/21/19 06:30 ABG Base Excess 18.4 mmol/L 05/21/19 06:30 VBG pH 7.51 (7.30-7.42) H 05/21/19 05:00 VBG pCO2 64.9 mmHg (35-63) H 05/21/19 05:00 VBG HCO3 50.4 mmol/L (20-32) H 05/21/19 05:00 VBG Base Excess 23.2 mmol/L 05/21/19 05:00 FiO2 3L 05/21/19 06:30 Sodium 139.1 mmol/L (137-145) 05/24/19 05:59 Potassium 4.3 mmol/L (3.6-5.0) 05/24/19 05:59 Chloride 94 mmol/L (98-107) L 05/24/19 05:59 Carbon Dioxide 32 mmol/L (22-30) H 05/24/19 05:59 Anion Gap 13 (5-19) 05/24/19 05:59 BUN 9 mg/dL (7-20) 05/24/19 05:59 Creatinine 0.73 mg/dL (0.52-1.25) 05/24/19 05:59 Est GFR ( Amer) > 60 (>60) 05/24/19 05:59 Est GFR (Non-Af Amer) Cancelled 05/21/19 22:01 Est GFR (MDRD) Non-Af > 60 (>60) 05/24/19 05:59 Glucose 83 mg/dL (75-110) 05/24/19 05:59 POC Glucose 117 mg/dL (70-110) H 05/22/19 08:17 Calcium 9.5 mg/dL (8.4-10.2) 05/24/19 05:59 Magnesium 2.4 mg/dL (1.6-2.3) H 05/23/19 04:22 Total Bilirubin 1.0 mg/dL (0.2-1.3) 05/20/19 16:50 Direct Bilirubin 0.1 mg/dL (0.0-0.4) 05/20/19 16:50 Neonat Total Bilirubin Not Reportable 05/20/19 16:50 Neonat Direct Bilirubin Not Reportable 05/20/19 16:50 Neonat Indirect Bili Not Reportable 05/20/19 16:50 AST 35 U/L (17-59) 05/20/19 16:50 ALT 21 U/L (<50) 05/20/19 16:50 Alkaline Phosphatase 167 U/L (38-126) H 05/20/19 16:50 Troponin I < 0.012 ng/mL 05/20/19 16:50 Total Protein 8.2 g/dL (6.3-8.2) 05/20/19 16:50 Albumin 4.4 g/dL (3.5-5.0) 05/20/19 16:50 EGFR Cancelled 05/21/19 22:01 Urine Osmolality 144 mOsm/kg (300-900) L 05/20/19 22:30 Urine Sodium 9 mmol/L (30-90) L 05/20/19 22:30 05/20/19 16:50 Troponin I < 0.012 Impressions: Chest X-Ray 05/20/19 15:43 IMPRESSION: Patchy opacities in the left retrocardiac space that could repr esent atelectasis or pneumonia. Stroke Is this a Stroke Patient?: No Acute Heart Failure - Is this a Heart Failure Patient?: Yes Documentation of LVEF assessment?: Yes LVEF < 40%?: No- if no continue to question #3 3. Anticoagulant therapy for permanect/persistent/paraoxysmal Afib or Aflutter: N/A
[2019-05-24 10:44] VITALS: BP 116/61
== END 2019-05-24 11:50 | disposition home or self-care (01) | DRG 641 ==
LOC: ER 15:18 → EH 18:18 → 3N 20:26
PROVIDERS: ADMIT Hospitalist; ATTEND Hospitalist
DX: E87.6 Hypokalemia (principal); I50.32 Chronic diastolic (congestive) heart failure; F11.20 Opioid dependence, uncomplicated; E87.1 Hypo-osmolality and hyponatremia; E86.0 Dehydration; E83.42 Hypomagnesemia; I11.0 Hypertensive heart disease with heart failure; I25.10 Atherosclerotic heart disease of native coronary artery without angina pectoris; G89.29 Other chronic pain; K21.9 Gastro-esophageal reflux disease without esophagitis; E87.3 Alkalosis; M54.41 Lumbago with sciatica, right side; M54.42 Lumbago with sciatica, left side; G62.9 Polyneuropathy, unspecified; T50.1X5A Adverse effect of loop [high-ceiling] diuretics, initial encounter; E83.41 Hypermagnesemia; F43.10 Post-traumatic stress disorder, unspecified; D64.9 Anemia, unspecified; Z99.81 Dependence on supplemental oxygen; I25.2 Old myocardial infarction; Z90.49 Acquired absence of other specified parts of digestive tract; Z95.1 Presence of aortocoronary bypass graft; Z95.5 Presence of coronary angioplasty implant and graft; F17.210 Nicotine dependence, cigarettes, uncomplicated; Z66 Do not resuscitate; Z82.49 Family history of ischemic heart disease and other diseases of the circulatory system; Z79.899 Other long term (current) drug therapy
CPT/HCPCS: 36415; 71045; 71046; 80048; 80053; 82803; 82962; 83735; 83880; 83935; 84300; 84443; 84484; 85025; 85610; 85730; 87070; 93005; 93010; 94799; 99291; J1644; J2405; J2550; J2765; J3475; J3480; J3490; J7030; J7620

== ENCOUNTER → 2019-05-20 | Outpatient (CLI) | payer MEDICARE, OTHER ==
--- NOTE | 2019-05-20 13:04 | RADIOLOGY REPORT (SQ) ---
EXAM DESCRIPTION: CHEST PA/LATERAL COMPLETED DATE/TIME: 05/20/2019 12:51 pm REASON FOR STUDY: SOB,CHF COMPARISON: 05/09/2020 EXAM PARAMETERS: NUMBER OF VIEWS: two views TECHNIQUE: Digital Frontal and Lateral radiographic views of the chest acquired. RADIATION DOSE: NA LIMITATIONS: none FINDINGS: LUNGS AND PLEURA: Ill-defined opacification in the left base. Greater opacification poste riorly and inferiorly on the lateral view. MEDIASTINUM AND HILAR STRUCTURES: No masses or contour abnormalities. HEART AND VASCULAR STRUCTURES: Heart normal size. No evidence for failure. BONES: No acute findings. HARDWARE: None in the chest. OTHER: No other significant finding. IMPRESSION: Cannot exclude left lower lobe pneumonia. No evidence of CHF. TECHNICAL DOCUMENTATION: JOB ID: [id number] [employer]- All Rights Reserved Reading location - IP/workstation name: [email or web address]
[2019-05-20 13:27] LABS: ALBUMIN 4.3 g/dL (3.5-5.0); ALKALINE PHOSPHATASE 175 U/L (38-126); ASPARTATE AMINO TRANSFERASE 34 U/L (17-59); BILIRUBIN,DIRECT 0.2 mg/dL (0.0-0.4); BILIRUBIN,TOTAL 1.1 mg/dL (0.2-1.3); BLOOD UREA NITROGEN 13 mg/dL (7-20); CALCIUM 9.3 mg/dL (8.4-10.2); CHLORIDE 61 mmol/L (98-107); GLUCOSE 102 mg/dL (75-110); TOTAL PROTEIN 7.7 g/dL (6.3-8.2)
[2019-05-20 13:40] LABS: ANION GAP 13 (5-19)
[2019-05-20 13:45] LABS: CARBON DIOXIDE 48 mmol/L (22-30)
== END ==
LOC: OD 12:27
PROVIDERS: ATTEND Obstetrics & Gynecology
DX: I50.9 Heart failure, unspecified (principal); R06.02 Shortness of breath; R53.83 Other fatigue; I25.2 Old myocardial infarction
CPT/HCPCS: 36415; 71046; 80053; 83880; 84443

== ENCOUNTER → 2019-06-12 | Outpatient (CLI) | payer MEDICARE, OTHER ==
[2014-10-09 12:52] VITALS: BP 131/88
[2019-06-12 18:56] LABS: ALBUMIN 4.5 g/dL (3.5-5.0); ALKALINE PHOSPHATASE 145 U/L (38-126); ANION GAP 13 (5-19); ASPARTATE AMINO TRANSFERASE 25 U/L (17-59); BILIRUBIN,DIRECT 0.2 mg/dL (0.0-0.4); BILIRUBIN,TOTAL 0.8 mg/dL (0.2-1.3); BLOOD UREA NITROGEN 15 mg/dL (7-20); CALCIUM 9.2 mg/dL (8.4-10.2); CARBON DIOXIDE 39 mmol/L (22-30); CHLORIDE 84 mmol/L (98-107); GLUCOSE 99 mg/dL (75-110); POTASSIUM 3.4 mmol/L (3.6-5.0)
== END ==
LOC: OD 17:07
PROVIDERS: ATTEND Obstetrics & Gynecology
DX: I50.22 Chronic systolic (congestive) heart failure (principal); E87.6 Hypokalemia; Z51.81 Encounter for therapeutic drug level monitoring; Z79.899 Other long term (current) drug therapy
CPT/HCPCS: 36415; 80053; 83880